=== PATIENT | female | born 1960 | race Caucasian/White ===

== ENCOUNTER 2020-06-18 04:41 | Inpatient (IN) | payer OTHER ==
[2020-06-18] MEDS ORDERED: IPRATROPIUM-ALBUTEROL 3 ML NEB INHALATION STA (04:53)
[2020-06-18 05:12] LABS: Basophils # (A) 0.1 k/uL (0-0.2); Basophils % (A) 1 %; Eosinophils # (A) 0.5 k/uL (0-0.7); Eosinophils % (A) 3 %; HCT 49.9 % (34.0-46.0); HGB 16.1 gm/dL (11.4-16.0); Lymphocytes # (A) 3.6 k/uL (1.0-4.8); Lymphocytes % (A) 21 %; MCH 29.6 pg (25.0-35.0); MCHC 32.3 g/dL (31.0-37.0); MCV 91.7 fL (80.0-100.0); Mean Platelet Volume 7.6; Monocytes # (A) 0.9 k/uL (0-1.0); Monocytes % (A) 6 %; Neutrophils # (A) 11.6 k/uL (1.3-7.7); Neutrophils % (A) 68 %; Platelet Count 304 k/uL (150-450); RBC 5.44 m/uL (3.80-5.40); RDW 13.1 % (11.5-15.5)
--- NOTE | 2020-06-18 05:17 | ED ---
SOB HPI - General Chief Complaint: Shortness of Breath Stated Complaint: ALEXANDER Time Seen by Provider: 06/18/20 04:48 Source: patient, family Mode of arrival: wheelchair Limitations: no limitations - History of Present Illness Initial Comments: This patient is 59-year-old woman presenting to be evaluated for shortness of breath. Patient states this been going on for a bit over 2 weeks. 2 weeks ago she did see Dr. Mclaughlin in the clinic and he started her on albuterol which initially was helping but she states she doesn't seem to be getting much relief from using this anymore. The breathing has been getting progressively worse. She has associated cough, usually nonproductive but occasionally with clear sputum. Patient denies chest pain. No leg pain or swelling. No change in urination or bowel movements. MD Complaint: shortness of breath, cough Onset/Timin -: week(s) Severity scale (1-10): 0 Consistency: constant Improves With: nothing Worsens With: nothing Associated Symptoms: denies other symptoms, cough Treatments Prior to Arrival: bronchodilator - Related Data Home Oxygen Therapy: No Home Medications Medication Instructions Recorded Confirmed Albuterol Inhaler [Ventolin Hfa 2 puff INHALATION RT-QID PRN 06/18/20 06/18/20 Inhaler] Fluticasone Nasal [place] [Flonase 1 spray EA NOSTRIL DAILY 06/18/20 06/18/20 Nasal [place]] Ipratropium-Albuterol Nebulize 3 ml INHALATION RT-QID PRN 06/18/20 06/18/20 [Duoneb 0.5 mg-3 mg/3 ml Soln] [place]-3 Fatty Acids/Fish Oil [Fish 1 cap PO DAILY 06/18/20 06/18/20 Oil 1,000 mg Softgel] Allergies Allergy/AdvReac Type Severity Reaction Status Date / Time Penicillins Allergy Unknown Verified 06/18/20 07:09 Review of Systems ROS Statement: Those systems with pertinent positive or pertinent negative responses have been documented in the HPI. ROS Other: All systems not noted in ROS Statement are negative. Constitutional: Denies: fever, chills Respiratory: Reports: cough, dyspnea, wheezes. Denies: hemoptysis Cardiovascular: Denies: chest pain, palpitations, orthopnea, edema, syncope Gastrointestinal: Denies: abdominal pain, nausea, vomiting Genitourinary: Denies: dysuria, hematuria Musculoskeletal: Denies: back pain Skin: Denies: rash Neurological: Denies: headache, weakness Past Medical History Past Medical History: COPD Additional Past Medical History / Comment(s): PSORIASIS History of Any Multi-Drug Resistant Organisms: None Reported Past Surgical History: Section Past Psychological History: No Psychological Hx Reported Smoking Status: Former smoker Past Alcohol Use History: Occasional Past Drug Use History: Marijuana - Past Family History Father Family Medical History: COPD Additional Family Medical History / Comment(s): Her father at age 64 of emphysema. Her brother at age 64 of emphysema. He was positive for alpha- 1 antitrypsin deficiency, ZZ. Brother(s) Family Medical History: COPD General Exam Limitations: no limitations General appearance: alert, in distress Head exam: Present: atraumatic, normocephalic Eye exam: Present: normal appearance. Absent: scleral icterus, conjunctival injection Neck exam: Present: normal inspection, full ROM Respiratory exam: Present: respiratory distress, wheezes, accessory muscle use, decreased breath sounds, prolonged expiratory. Absent: rales, rhonchi, stridor, chest wall tenderness Cardiovascular Exam: Present: regular rate, normal rhythm, normal heart sounds. Absent: systolic murmur, diastolic murmur, rubs, gallop GI/Abdominal exam: Present: soft. Absent: distended, tenderness, guarding, rebound, rigid, mass Extremities exam: Present: normal inspection, normal capillary refill. Absent: pedal edema, calf tenderness Back exam: Present: normal inspection. Absent: CVA tenderness (R), CVA tenderness (L) Neurological exam: Present: alert Skin exam: Present: warm, dry, intact, normal color. Absent: rash Course Vital Signs 06/18/20 06/18/20 06/18/20 04:50 04:58 05:08 Temperature 97.7 F Pulse Rate 115 H 103 H 108 H Respiratory 45 H Rate Blood Pressure 164/82 O2 Sat by Pulse 70 L Oximetry 06/18/20 06/18/20 06/18/20 07:22 07:24 07:35 Temperature 97.8 F Pulse Rate 106 H 101 H Respiratory 24 Rate Blood Pressure 136/99 O2 Sat by Pulse 99 Oximetry 06/18/20 07:46 Temperature Pulse Rate 105 H Respiratory Rate Blood Pressure O2 Sat by Pulse Oximetry Medical Decision Making - Lab Data Result diagrams: 06/18/20 04:58 06/18/20 04:58 Lab Results 06/18/20 06/18/20 06/18/20 Range/Units 04:58 04:58 04:58 WBC 17.0 H (3.8-10.6) k/uL RBC 5.44 H (3.80-5.40) m/uL Hgb 16.1 H (11.4-16.0) gm/dL Hct 49.9 H (34.0-46.0) % MCV 91.7 (80.0-100.0) fL MCH 29.6 (25.0-35.0) pg MCHC 32.3 (31.0-37.0) g/dL RDW 13.1 (11.5-15.5) % Plt Count 304 (150-450) k/uL Neutrophils % 68 % Lymphocytes % 21 % Monocytes % 6 % Eosinophils % 3 % Basophils % 1 % Neutrophils # 11.6 H (1.3-7.7) k/uL Lymphocytes # 3.6 (1.0-4.8) k/uL Monocytes # 0.9 (0-1.0) k/uL Eosinophils # 0.5 (0-0.7) k/uL Basophils # 0.1 (0-0.2) k/uL PT 10.0 (9.0-12.0) sec INR 1.0 (<1.2) APTT 27.3 (22.0-30.0) sec Sodium 137 (137-145) mmol/L Potassium 4.3 (3.5-5.1) mmol/L Chloride 101 (98-107) mmol/L Carbon Dioxide 27 (22-30) mmol/L Anion Gap 9 mmol/L BUN 13 (7-17) mg/dL Creatinine 0.57 (0.52-1.04) mg/dL Est GFR (CKD-EPI)AfAm >90 (>60 ml/min/1.73 sqM) Est GFR (CKD-EPI)NonAf >90 (>60 ml/min/1.73 sqM) Glucose 141 H (74-99) mg/dL Plasma Lactic Acid Sergey (0.7-2.0) mmol/L Calcium 9.3 (8.4-10.2) mg/dL Magnesium 2.1 (1.6-2.3) mg/dL Total Bilirubin 0.6 (0.2-1.3) mg/dL AST 23 (14-36) U/L ALT 16 (4-34) U/L Alkaline Phosphatase 90 (38-126) U/L Troponin I (0.000-0.034) ng/mL NT-Pro-B Natriuret Pep pg/mL Total Protein 8.4 H (6.3-8.2) g/dL Albumin 4.8 (3.5-5.0) g/dL Procalcitonin (0.02-0.09) ng/mL 06/18/20 06/18/20 06/18/20 Range/Units 04:58 04:58 04:58 WBC (3.8-10.6) k/uL RBC (3.80-5.40) m/uL Hgb (11.4-16.0) gm/dL Hct (34.0-46.0) % MCV (80.0-100.0) fL MCH (25.0-35.0) pg MCHC (31.0-37.0) g/dL RDW (11.5-15.5) % Plt Count (150-450) k/uL Neutrophils % % Lymphocytes % % Monocytes % % Eosinophils % % Basophils % % Neutrophils # (1.3-7.7) k/uL Lymphocytes # (1.0-4.8) k/uL Monocytes # (0-1.0) k/uL Eosinophils # (0-0.7) k/uL Basophils # (0-0.2) k/uL PT (9.0-12.0) sec INR (<1.2) APTT (22.0-30.0) sec Sodium (137-145) mmol/L Potassium (3.5-5.1) mmol/L Chloride (98-107) mmol/L Carbon Dioxide (22-30) mmol/L Anion Gap mmol/L BUN (7-17) mg/dL Creatinine (0.52-1.04) mg/dL Est GFR (CKD-EPI)AfAm (>60 ml/min/1.73 sqM) Est GFR (CKD-EPI)NonAf (>60 ml/min/1.73 sqM) Glucose (74-99) mg/dL Plasma Lactic Acid Sergey 1.3 (0.7-2.0) mmol/L Calcium (8.4-10.2) mg/dL Magnesium (1.6-2.3) mg/dL Total Bilirubin (0.2-1.3) mg/dL AST (14-36) U/L ALT (4-34) U/L Alkaline Phosphatase (38-126) U/L Troponin I <0.012 (0.000-0.034) ng/mL NT-Pro-B Natriuret Pep 67 pg/mL Total Protein (6.3-8.2) g/dL Albumin (3.5-5.0) g/dL Procalcitonin (0.02-0.09) ng/mL 06/18/20 Range/Units 04:58 WBC (3.8-10.6) k/uL RBC (3.80-5.40) m/uL Hgb (11.4-16.0) gm/dL Hct (34.0-46.0) % MCV (80.0-100.0) fL MCH (25.0-35.0) pg MCHC (31.0-37.0) g/dL RDW (11.5-15.5) % Plt Count (150-450) k/uL Neutrophils % % Lymphocytes % % Monocytes % % Eosinophils % % Basophils % % Neutrophils # (1.3-7.7) k/uL Lymphocytes # (1.0-4.8) k/uL Monocytes # (0-1.0) k/uL Eosinophils # (0-0.7) k/uL Basophils # (0-0.2) k/uL PT (9.0-12.0) sec INR (<1.2) APTT (22.0-30.0) sec Sodium (137-145) mmol/L Potassium (3.5-5.1) mmol/L Chloride (98-107) mmol/L Carbon Dioxide (22-30) mmol/L Anion Gap mmol/L BUN (7-17) mg/dL Creatinine (0.52-1.04) mg/dL Est GFR (CKD-EPI)AfAm (>60 ml/min/1.73 sqM) Est GFR (CKD-EPI)NonAf (>60 ml/min/1.73 sqM) Glucose (74-99) mg/dL Plasma Lactic Acid Sergey (0.7-2.0) mmol/L Calcium (8.4-10.2) mg/dL Magnesium (1.6-2.3) mg/dL Total Bilirubin (0.2-1.3) mg/dL AST (14-36) U/L ALT (4-34) U/L Alkaline Phosphatase (38-126) U/L Troponin I (0.000-0.034) ng/mL NT-Pro-B Natriuret Pep pg/mL Total Protein (6.3-8.2) g/dL Albumin (3.5-5.0) g/dL Procalcitonin 0.04 (0.02-0.09) ng/mL - EKG Data -: EKG Interpreted by Me EKG shows normal: sinus rhythm, axis (Normal), intervals (Normal), QRS complexes (Normal) Rate: tachycardia (Rate 13 bpm) Interpretation: nonspecific ST-T wave changes Critical Care Time Critical Care Time: Yes (35 minutes) Disposition Clinical Impression: COPD (chronic obstructive pulmonary disease) Disposition: ADMITTED IP TO THIS HOSP Condition: Serious Is patient prescribed a controlled substance at d/c from ED?: No
[2020-06-18 05:20] LABS: Partial Thromboplastin Time 27.3 sec (22.0-30.0)
[2020-06-18 05:25] LABS: ALT 16 U/L (4-34); AST 23 U/L (14-36); African American GFR (CKD) >90 (>60 ml/min/1.73 sqM); Albumin 4.8 g/dL (3.5-5.0); Alkaline Phosphatase 90 U/L (38-126); Anion Gap 9 mmol/L; Blood Urea Nitrogen 13 mg/dL (7-17); Calcium 9.3 mg/dL (8.4-10.2); Carbon Dioxide 27 mmol/L (22-30); Chloride 101 mmol/L (98-107); Glucose 141 mg/dL (74-99); Magnesium 2.1 mg/dL (1.6-2.3); Non-African American GFR(CKD) >90 (>60 ml/min/1.73 sqM); Potassium 4.3 mmol/L (3.5-5.1); Sodium 137 mmol/L (137-145); Total Bilirubin 0.6 mg/dL (0.2-1.3); Total Protein 8.4 g/dL (6.3-8.2)
[2020-06-18] MEDS ORDERED: predniSONE 20 MG TAB PO STA (06:11)
[2020-06-18] MEDS ORDERED: ALBUTEROL NEBULIZED 2.5 MG/3 ML INHALATION STA ×2 (06:11→06:19)
--- NOTE | 2020-06-18 06:13 | XR ---
EXAMINATION TYPE: XR chest 1V portable DATE OF EXAM: 06/18/2020 COMPARISON: NONE HISTORY: Short of breath TECHNIQUE: FINDINGS: There is no heart failure nor confluent pneumonic infiltrate. Costophrenic angles are clear . There are chest leads. Heart size is normal. IMPRESSION: No active cardiopulmonary disease.
[2020-06-18] MEDS ORDERED: methylPREDNISolone SOD SUCCI 125 MG/2 ML VIAL IV STA (06:15)
[2020-06-18] MEDS ORDERED: ALBUTEROL NEBULIZED 1.25 MG/3 ML INHALATION PRN (06:24)
[2020-06-18] MEDS: IPRATROPIUM-ALBUTEROL 3 ML NEB INHALATION SCH ×4 (08:50→19:05)
[2020-06-18] MEDS: NICOTINE 14MG/24HR PATCH TRANSDERM SCH (08:50)
[2020-06-18] MEDS ORDERED: AZITHROMYCIN 500 MG TAB PO SCH (09:00)
--- NOTE | 2020-06-18 09:10 | P.HPIM ---
History of Present Illness H&P Date: 06/18/20 This is a 59-year-old patient of Dr. Lesia Tellez with a past medical history significant for COPD and psoriasis patient is a former smoker who also occasionally uses marijuana. Patient was seen about 2 weeks ago in the clinic complaining of shortness of breath at that time she was given albuterol and found relief. Patient states that during the last 2 weeks the albuterol has stopped working and she continues to have significant shortness of breath. She presented to the emergency room complaining of shortness of breath. Patient has a positive nonproductive cough. Denies any fever or chills. Patient has family history of alpha-1 antitrypsin deficiency with a brother who was zz positive and 2 sisters who are also zz positive. Her brother at the age of 64. Her father at the age of 64 for emphysema, as well. Review of systems: Constitutional: No fever, no chills, no night sweats. No weight change. Report weakness and fatigue no lethargy. No daytime sleepiness. EENT: No headache. No blurred vision or double vision, no loss of vision. No loss of Hearing, no ringing in the ears, no dizziness. No nasal drainage or congestion. No epistaxis. No sore throat. Lungs: Reports shortness of breath, and cough, and sputum production. No wheezing. Cardiovascular: No chest pain, no lower extremity edema. No palpitations. No paroxysmal nocturnal dyspnea. No orthopnea. No lightheadedness or dizziness. No syncopal episodes. Abdominal: no abdominal discomfort. No nausea, vomiting. no diarrhea. No constipation. No bloody or tarry stools. no loss of appetite. Genitourinary: No dysuria, increased frequency, urgency. No urinary retention. Musculoskeletal: No myalgias. No muscle weakness, no gait dysfunction, no frequent falls. No back pain. No neck pain. Integumentary: No wounds, no lesions. No rash or pruritus. No unusual bruising. No change in hair or nails. Neurologic: No aphasia. No facial droop. No change in mentation. No head injury. No headache. No paralysis. No paresthesia. Psychiatric: No depression. No anxiety. No mood swings. Endocrine: No abnormal blood sugars. No weight change. No excessive sweating or thirst. Physical exam: General Appearance: Alert, cooperative, no distress, appears stated age. Neck HEENT: Positive oral thrush noted Supple, no lymphadenopathy, no thyroid enlargement, no carotid bruits. Lungs: Diminished with expiratory wheezes. Chest Wall: Chest wall normal expansion with deep inspiration no tenderness and no deformity was found on exam, no costochondral pain or discomfort. Heart: Regular rate and rhythm, S1, S2 normal, no murmur, rub or gallop. Back: Symmetric, no curvature, ROM normal, no CVA tenderness. Abdomen: Soft, non-tender, no rebound or rigidity, no hepatosplenomegaly. Extremities: Extremities normal, atraumatic, no cyanosis or edema. Pulses: 2+ and symmetric. Skin: Areas of psoriasis Skin color, texture, tugor normal, no rashes or lesions. Neurologic: Alert oriented x3 cranial nerves II through XII intact, no motor deficit, no abnormal balance or gait Assessment/plan: 1. Acute hypoxic respiratory failure secondary to COPD. Consult pulmonology. Continue with DuoNeb, Symbicort, Ventolin, doxycycline 100 mg by mouth twice a day, Solu-Medrol 60 mg IV every 6. Pro-calcitonin level, sputum culture 2. Chronic and ongoing nicotine dependence. Nicotine patch 3. Family history of alpha 1 antitrypsin. Of to 1 and trypsin level and phenotype, IgE, 4. Oral tyra's. Diflucan 100 mg IV push daily. 5. DVT prophylaxis. Heparin subcu 6. GI prophylaxis Protonix 40 mg IV daily CODE STATUS: Full code Discharge plan: Minimal 2 nights day, home with self-care Impression and plan of care have been directed as dictated by the signing physician. Soo Sierra nurse practitioner acting as scribe for signing physician. Past Medical History Past Medical History: COPD Additional Past Medical History / Comment(s): PSORIASIS History of Any Multi-Drug Resistant Organisms: None Reported Past Surgical History: Section Past Psychological History: No Psychological Hx Reported Smoking Status: Former smoker Past Alcohol Use History: Occasional Past Drug Use History: Marijuana - Past Family History Father Family Medical History: COPD Additional Family Medical History / Comment(s): Her father at age 64 of emphysema. Her brother at age 64 of emphysema. He was positive for alpha- 1 antitrypsin deficiency, BEENA. Brother(s) Family Medical History: COPD Medications and Allergies Home Medications Medication Instructions Recorded Confirmed Type Albuterol Inhaler [Ventolin Hfa 2 puff INHALATION RT-QID PRN 06/18/20 06/18/20 History Inhaler] Fluticasone Nasal [place] [Flonase 1 spray EA NOSTRIL DAILY 06/18/20 06/18/20 History Nasal [place]] Ipratropium-Albuterol Nebulize 3 ml INHALATION RT-QID PRN 06/18/20 06/18/20 History [Duoneb 0.5 mg-3 mg/3 ml Soln] [place]-3 Fatty Acids/Fish Oil [Fish 1 cap PO DAILY 06/18/20 06/18/20 History Oil 1,000 mg Softgel] Allergies Allergy/AdvReac Type Severity Reaction Status Date / Time Penicillins Allergy Unknown Verified 06/18/20 07:09 Physical Exam Vitals: Vital Signs Temp Pulse Pulse Resp BP BP Pulse Ox 06/18/20 08:06 97.7 F 104 H 18 142/80 96 06/18/20 07:46 105 H 06/18/20 07:35 101 H 06/18/20 07:24 97.8 F 06/18/20 07:22 106 H 24 136/99 99 06/18/20 05:08 108 H 06/18/20 04:58 103 H 06/18/20 04:50 97.7 F 115 H 45 H 164/82 70 L Intake and Output 06/17/20 06/18/20 06/18/20 22:59 06:59 14:59 Other: Weight 72.575 kg Results CBC & Chem 7: 06/18/20 04:58 06/18/20 04:58 Labs: Abnormal Lab Results - Last 24 Hours (Table) 06/18/20 06/18/20 Range/Units 04:58 04:58 WBC 17.0 H (3.8-10.6) k/uL RBC 5.44 H (3.80-5.40) m/uL Hgb 16.1 H (11.4-16.0) gm/dL Hct 49.9 H (34.0-46.0) % Neutrophils # 11.6 H (1.3-7.7) k/uL Glucose 141 H (74-99) mg/dL Total Protein 8.4 H (6.3-8.2) g/dL
[2020-06-18] MEDS ORDERED: AZITHROMYCIN 500 MG in SODIUM CHLORIDE 0.9% 250 ML IVPB SCH (10:00)
[2020-06-18] MEDS ORDERED: FLUCONAZOLE IN NACL,ISO-OSM 100 MG in SALINE 1 50ML.BAG IVPB SCH (10:15)
[2020-06-18] MEDS ORDERED: LEVOFLOXACIN 500MG-D5W PMX 500 MG in DEXTROSE/WATER 1 100ML.BAG IVPB SCH (10:15)
--- NOTE | 2020-06-18 11:26 | P.CNPUL ---
History of Present Illness Consult date: 06/18/20 Requesting physician: Carolyne Edwards Reason for consult: COPD Chief complaint: Shortness of breath History of present illness: This is a very pleasant 59-year-old female patient who follows with Dr. Cornell as her primary care provider. She has a history of psoriasis, rhinitis, ALLERGIES, chronic and ongoing tobacco dependence. She also has a family history of alpha 1 antitrypsin deficiency with a brother who was ZZ positive. He at age 64. Her father of age 64 emphysema as well. His been having increasing shortness of breath over the past several weeks. She was to see Dr. Valencia as a new patient in our office next week. The last 2 days however should her shortness of breath has gotten worse. She was using her grandsons nebulizer which did seem to help but she presented early this morning with shortness of breath, chest tightness and wheezing. She has occasional pr oductive cough of clear sputum. Her O2 saturation on arrival on room air was 70%. She was initially placed on high flow nasal cannula. She is seen today in consultation on the regular medical floor. She is awake and alert in no acute distress. Currently on 4 L/m per nasal cannula and maintaining O2 saturation in the 90s. Chest x-ray reveals no acute pulmonary process. White count 17.0. Hemoglobin 16.1. Sodium 137. Potassium 4.3. Creatinine 0.57. Troponin negative. ProBNP 67. Review of Systems REVIEW OF SYSTEMS: CONSTITUTIONAL: Denies any recent significant weight loss or weight gain. EYES: Denies change in vision. EARS, NOSE, MOUTH, THROAT: Denies headaches, denies sore throat. CARDIOVASCULAR: Denies chest pain, palpitations or syncopal episodes. RESPIRATORY: Positive for shortness of breath, cough, congestion no hemoptysis. GASTROINTESTINAL: Denies change in appetite, denies abdominal pain GENITOURINARY: Denies hematuria, denies infections. MUSKULOSKELETAL: Denies pain, denies swelling. INTEGUMENTARY: Positive psoriasis NEUROLOGICAL: Denies recent memory loss, no recent seizure activity. PSYCHIATRIC: Denies anxiety, denies depression. HEMATOLOGIC/LYMPHATIC: Denies anemia, denies enlarged lymph nodes. Past Medical History Past Medical History: COPD Additional Past Medical History / Comment(s): PSORIASIS History of Any Multi-Drug Resistant Organisms: None Reported Past Surgical History: Section Past Psychological History: No Psychological Hx Reported Smoking Status: Current every day smoker Past Alcohol Use History: Occasional Past Drug Use History: Marijuana - Past Family History Father Family Medical History: COPD Additional Family Medical History / Comment(s): Her father at age 64 of emphysema. Her brother at age 64 of emphysema. He was positive for alpha- 1 antitrypsin deficiency, ZZ. Brother(s) Family Medical History: COPD Medications and Allergies Home Medications Medication Instructions Recorded Confirmed Type Albuterol Inhaler [Ventolin Hfa 2 puff INHALATION RT-QID PRN 06/18/20 06/18/20 History Inhaler] Fluticasone Nasal [place] [Flonase 1 spray EA NOSTRIL DAILY 06/18/20 06/18/20 History Nasal [place]] Ipratropium-Albuterol Nebulize 3 ml INHALATION RT-QID PRN 06/18/20 06/18/20 History [Duoneb 0.5 mg-3 mg/3 ml Soln] [place]-3 Fatty Acids/Fish Oil [Fish 1 cap PO DAILY 06/18/20 06/18/20 History Oil 1,000 mg Softgel] Allergies Allergy/AdvReac Type Severity Reaction Status Date / Time Penicillins Allergy Unknown Verified 06/18/20 07:09 Physical Exam Vitals: Vital Signs Temp Pulse Pulse Resp BP BP Pulse Ox 06/18/20 08:06 97.7 F 104 H 18 142/80 96 06/18/20 07:46 105 H 06/18/20 07:35 101 H 06/18/20 07:24 97.8 F 06/18/20 07:22 106 H 24 136/99 99 06/18/20 05:08 108 H 06/18/20 04:58 103 H 06/18/20 04:50 97.7 F 115 H 45 H 164/82 70 L Intake and Output 06/17/20 06/18/20 06/18/20 22:59 06:59 14:59 Other: Weight 72.575 kg 72.575 kg GENERAL EXAM: Alert, pleasant 59-year-old female patient, on 4 L nasal cannula, comfortable in no apparent distress. HEAD: Normocephalic. EYES: Normal reaction of pupils, equal size. NOSE: Clear with pink turbinates. THROAT: No erythema or exudates. NECK: No masses, no JVD. CHEST: No chest wall deformity. LUNGS: Equal air entry with bilateral end expiratory wheeze, diminished. CVS: S1 and S2 normal with no audible murmur, regular rhythm. ABDOMEN: No hepatosplenomegaly, normal bowel sounds, no guarding or rigidity. SPINE: No scoliosis or deformity SKIN: Areas of psoriasis CENTRAL NERVOUS SYSTEM: No focal deficits, tone is normal in all 4 extremities. EXTREMITIES: There is no peripheral edema. No clubbing, no cyanosis. Peripheral pulses are intact. Results - Laboratory Findings CBC and BMP: 06/18/20 04:58 06/18/20 04:58 PT/INR, D-dimer PT 10.0 sec (9.0-12.0) 06/18/20 04:58 INR 1.0 (<1.2) 06/18/20 04:58 Abnormal lab findings: Abnormal Labs 06/18/20 06/18/20 04:58 04:58 WBC 17.0 H RBC 5.44 H Hgb 16.1 H Hct 49.9 H Neutrophils # 11.6 H Glucose 141 H Total Protein 8.4 H - Diagnostic Findings Chest x-ray: image reviewed (No acute pulmonary process) Assessment and Plan Assessment: Acute hypoxic respiratory failure secondary to an acute exacerbation of chronic obstructive pulmonary disease Chronic and ongoing tobacco dependence Psoriasis Seasonal ALLERGIES/rhinitis Family history of alpha-1 antitrypsin deficiency, ZZ Plan: The patient was seen and evaluated by Dr. Mcmillan Chest x-ray and labs reviewed Continue DuoNeb inhalations Add Symbicort Continue IV Solu-Medrol Add doxycycline, pro-calcitonin pending, doubt pneumonia Educated regarding the importance of complete smoking cessation NicoDerm patch in place Titrate down the FiO2 as tolerated We'll continue to follow and make further recommendations based on her clinical status She'll keep her appointment in our office for full pulmonary function testing and alpha-1 testing to evaluate the severity of her COPD I, the cosigning physician, performed a history & physical examination of the patient. Lungs sounds with bilateral end expiratory wheeze, diminished. Maintaining good O2 saturations in the 90s on 4 L/m per nasal cannula. I discussed the assessment and plan of care with my nurse practitioner, Emilia Lauren. I attest to the above note as dictated by her. Time with Patient: Greater than 30
[2020-06-18] MEDS: PANTOPRAZOLE 40 MG/10 ML VIAL IVP SCH (12:10)
[2020-06-18] MEDS: methylPREDNISolone SOD SUCCI 125 MG/2 ML VIAL IV SCH ×2 (12:11→17:31)
[2020-06-18] MEDS: DOXYCYCLINE 100 MG CAP PO SCH ×2 (12:11→20:48)
[2020-06-18] MEDS: SYMBICORT 160-4.5 MCG INHALER INHALATION SCH (19:05)
[2020-06-18] MEDS ORDERED: BUDESONIDE 1 MG/2 ML NEBU INHALATION SCH (20:00)
[2020-06-18] MEDS: KETOROLAC 15 MG/ML 1 ML VIAL IVP PRN (20:47)
[2020-06-18] MEDS: HEPARIN SODIUM,PORCINE 5,000 UNIT/ML 1 ML VIAL SQ SCH ×2 (20:48→20:54)
[2020-06-18] MEDS: MELATONIN 3 MG TABLET PO SCH (20:48)
[2020-06-19] MEDS: methylPREDNISolone SOD SUCCI 125 MG/2 ML VIAL IV SCH ×2 (00:04→05:51)
[2020-06-19] MEDS: IPRATROPIUM-ALBUTEROL 3 ML NEB INHALATION SCH (06:24)
[2020-06-19] MEDS: PANTOPRAZOLE 40 MG/10 ML VIAL IVP SCH (07:42)
[2020-06-19] MEDS: NICOTINE 14MG/24HR PATCH TRANSDERM SCH (07:42)
[2020-06-19] MEDS: HEPARIN SODIUM,PORCINE 5,000 UNIT/ML 1 ML VIAL SQ SCH ×2 (07:42→20:51)
[2020-06-19] MEDS: DOXYCYCLINE 100 MG CAP PO SCH ×2 (07:42→21:02)
[2020-06-19 07:58] LABS: Basophils # (A) 0.1 k/uL (0-0.2); Basophils % (A) 0 %; Eosinophils % (A) 0 %; HCT 46.8 % (34.0-46.0); HGB 15.2 gm/dL (11.4-16.0); Lymphocytes # (A) 1.7 k/uL (1.0-4.8); Lymphocytes % (A) 6 %; MCH 29.5 pg (25.0-35.0); MCHC 32.4 g/dL (31.0-37.0); MCV 91.3 fL (80.0-100.0); Mean Platelet Volume 7.9; Monocytes # (A) 0.8 k/uL (0-1.0); Monocytes % (A) 3 %; Neutrophils # (A) 24.6 k/uL (1.3-7.7); Neutrophils % (A) 90 %; Platelet Count 312 k/uL (150-450); RBC 5.13 m/uL (3.80-5.40); RDW 13.3 % (11.5-15.5); WBC 27.3 k/uL (3.8-10.6)
[2020-06-19] MEDS: SYMBICORT 160-4.5 MCG INHALER INHALATION SCH ×2 (07:58→20:12)
[2020-06-19 08:02] LABS: ALT 16 U/L (4-34); AST 21 U/L (14-36); African American GFR (CKD) >90 (>60 ml/min/1.73 sqM); Albumin 4.6 g/dL (3.5-5.0); Alkaline Phosphatase 82 U/L (38-126); Anion Gap 9 mmol/L; Blood Urea Nitrogen 25 mg/dL (7-17); Calcium 9.6 mg/dL (8.4-10.2); Carbon Dioxide 27 mmol/L (22-30); Chloride 101 mmol/L (98-107); Glucose 139 mg/dL (74-99); Non-African American GFR(CKD) 81 (>60 ml/min/1.73 sqM); Potassium 4.3 mmol/L (3.5-5.1); Sodium 137 mmol/L (137-145); Total Bilirubin 0.6 mg/dL (0.2-1.3)
--- NOTE | 2020-06-19 08:56 | P.PN ---
Subjective Progress Note Date: 06/19/20 This is a 59-year-old patient of Dr. Lesia Tellez with a past medical history significant for COPD and psoriasis patient is a former smoker who also occasionally uses marijuana. Patient was seen about 2 weeks ago in the clinic complaining of shortness of breath at that time she was given albuterol and found relief. Patient states that during the last 2 weeks the albuterol has stopped working and she continues to have significant shortness of breath. She presented to the emergency room complaining of shortness of breath. Patient has a positive nonproductive cough. Denies any fever or chills. Patient has family history of alpha-1 antitrypsin deficiency with a brother who was zz positive and 2 sisters who are also zz positive. Her brother at the age of 64. Her father at the age of 64 for emphysema, as well. 06/19: She complained of a headache last night receiving Toradol with relief. Patient states that she feels the headache may be caused from the coughing and lack of caffeine. Patient states that she is feeling much better is able to breathe easier. Continues to have nebulizer treatments which will be changed to as needed. Patient no oral tyra's noted. Review of systems: Constitutional: No fever, no chills, no night sweats. No weight change. Report weakness and fatigue no lethargy. No daytime sleepiness. EENT: Reports headache resolved. No blurred vision or double vision, no loss of vision. No loss of Hearing, no ringing in the ears, no dizziness. No nasal drainage or congestion. No epistaxis. No sore throat. Lungs: Reports shortness of breath improved, and cough, and sputum production. No wheezing. Cardiovascular: No chest pain, no lower extremity edema. No palpitations. No paroxysmal nocturnal dyspnea. No orthopnea. No lightheadedness or dizziness. No syncopal episodes. Abdominal: no abdominal discomfort. No nausea, vomiting. no diarrhea. No constipation. No bloody or tarry stools. no loss of appetite. Genitourinary: No dysuria, increased frequency, urgency. No urinary retention. Musculoskeletal: No myalgias. No muscle weakness, no gait dysfunction, no frequent falls. No back pain. No neck pain. Integumentary: No wounds, no lesions. No rash or pruritus. No unusual bruising. No change in hair or nails. Neurologic: No aphasia. No facial droop. No change in mentation. No head injury. No headache. No paralysis. No paresthesia. Psychiatric: No depression. No anxiety. No mood swings. Endocrine: No abnormal blood sugars. No weight change. No excessive sweating or thirst. Physical exam: General Appearance: Alert, cooperative, no distress, appears stated age. Neck HEENT:Supple, no lymphadenopathy, no thyroid enlargement, no carotid bruits. Lungs: Diminished with expiratory wheezes. Chest Wall: Chest wall normal expansion with deep inspiration no tenderness and no deformity was found on exam, no costochondral pain or discomfort. Heart: Regular rate and rhythm, S1, S2 normal, no murmur, rub or gallop. Back: Symmetric, no curvature, ROM normal, no CVA tenderness. Abdomen: Soft, non-tender, no rebound or rigidity, no hepatosplenomegaly. Extremities: Extremities normal, atraumatic, no cyanosis or edema. Pulses: 2+ and symmetric. Skin: Areas of psoriasis Skin color, texture, tugor normal, no rashes or lesi ons. Neurologic: Alert oriented x3 cranial nerves II through XII intact, no motor deficit, no abnormal balance or gait Assessment/plan: 1. Acute hypoxic respiratory failure secondary to COPD. Consult pulmonology. Continue with DuoNeb, Symbicort, Ventolin, as needed doxycycline 100 mg by mouth twice a day, Solu-Medrol 40 mg IV every 6. Pro-calcitonin level 0.4, sputum culture pending 2. Chronic and ongoing nicotine dependence. Nicotine patch 3. Family history of alpha 1 antitrypsin. alpha 1 and trypsin level and phenotype, IgE, 4. Oral tyra's. Resolved 5. DVT prophylaxis. Heparin subcu 6. GI prophylaxis Protonix 40 mg IV daily CODE STATUS: Full code Discharge plan: Minimal 2 nights day, home with self-care Impression and plan of care have been directed as dictated by the signing physician. Soo Sierra nurse practitioner acting as scribe for signing physician. Objective - Vital Signs Vital signs: Vital Signs Temp 98 F 06/19/20 07:10 Pulse 95 06/19/20 07:10 Resp 18 06/19/20 07:10 BP 112/67 06/19/20 07:10 Pulse Ox 95 06/19/20 07:10 Intake & Output 06/18/20 06/19/20 06/19/20 18:59 06:59 18:59 Weight 72.575 kg Other: Voiding Method Bedside Commode Bedside Commode # Voids 1 3 - Labs CBC & Chem 7: 06/19/20 07:20 06/19/20 07:20 Labs: Abnormal Lab Results - Last 24 Hours (Table) 06/19/20 06/19/20 Range/Units 07:20 07:20 WBC 27.3 H (3.8-10.6) k/uL Hct 46.8 H (34.0-46.0) % Neutrophils # 24.6 H (1.3-7.7) k/uL BUN 25 H (7-17) mg/dL Glucose 139 H (74-99) mg/dL
[2020-06-19] MEDS: IPRATROPIUM-ALBUTEROL 3 ML NEB INHALATION PRN ×3 (11:03→20:03)
[2020-06-19] MEDS: predniSONE 20 MG TAB PO SCH (11:49)
[2020-06-19] MEDS ORDERED: methylPREDNISolone SOD SUCCI 40 MG/ML 1 ML VIAL IV SCH (12:00)
--- NOTE | 2020-06-19 12:08 | P.PN ---
Subjective Progress Note Date: 06/19/20 Principal diagnosis: Acute exacerbation of chronic obstructive pulmonary disease This is a very pleasant 59-year-old female patient who follows with Dr. Calin Mclaughlin as her primary care provider. She has a history of psoriasis, rhinitis, ALLERGIES, chronic and ongoing tobacco dependence. She also has a family history of alpha 1 antitrypsin deficiency with a brother who was ZZ positive. He at age 64. Her father of age 64 emphysema as well. His been having increasing shortness of breath over the past several weeks. She was to see Dr. Valencia as a new patient in our office next week. The last 2 days however should her shortness of breath has gotten worse. She was using her grandsons nebulizer which did seem to help but she presented early this morning with shortness of breath, chest tightness and wheezing. She has occasional productive cough of clear sputum. Her O2 saturation on arrival on room air was 70%. She was initially placed on high flow nasal cannula. She is seen today in consultation on the regular medical floor. She is awake and alert in no acute distress. Currently on 4 L/m per nasal cannula and maintaining O2 saturation in the 90s. Chest x-ray reveals no acute pulmonary process. White count 17.0. Hemoglobin 16.1. Sodium 137. Potassium 4.3. Creatinine 0.57. Troponin negative. ProBNP 67. The patient is seen today 06/19/2020 in follow-up in the regular medical floor. She is sitting up at the bedside. Awake and alert in no acute distress. Breathing quite a bit easier today compared to yesterday. Maintaining good O2 saturations in the mid 90s on 4 L/m per nasal cannula. She's been afebrile. Hemodynamically stable. White count 27.3. Hemoglobin 15.2. Sodium 137. Potassium 4.3. Creatinine 0.80. Pro calcitonin 0.04. She is continued on DuoNeb inhalations, Symbicort, IV Solu-Medrol. Antibiotics in the form of doxycycline. NicoDerm patch is in place. Objective - Vital Signs Vital signs: Vital Signs Temp 98 F 06/19/20 07:10 Pulse 96 06/19/20 11:24 Resp 18 06/19/20 08:00 BP 112/67 06/19/20 07:10 Pulse Ox 95 06/19/20 07:10 Intake & Output 06/18/20 06/19/20 06/19/20 18:59 06:59 18:59 Weight 72.575 kg Other: Voiding Method Bedside Commode Bedside Commode Bedside Commode # Voids 1 3 - Exam GENERAL EXAM: Alert, active, very pleasant 59-year-old female patient, 4 L nasal cannula, comfortable in no apparent distress. HEAD: Normocephalic. EYES: Normal reaction of pupils, equal size. NOSE: Clear with pink turbinates. THROAT: No erythema or exudates. NECK: No masses, no JVD. CHEST: No chest wall deformity. LUNGS: Equal air entry with end expiratory wheeze, diminished. No crackles, rhonchi or dullness. CVS: S1 and S2 normal with no audible murmur, regular rhythm. ABDOMEN: No hepatosplenomegaly, normal bowel sounds, no guarding or rigidity. SPINE: No scoliosis or deformity SKIN: No rashes CENTRAL NERVOUS SYSTEM: No focal deficits, tone is normal in all 4 extremities. EXTREMITIES: There is no peripheral edema. No clubbing, no cyanosis. Periph eral pulses are intact. - Labs CBC & Chem 7: 06/19/20 07:20 06/19/20 07:20 Labs: Abnormal Lab Results - Last 24 Hours (Table) 06/19/20 06/19/20 Range/Units 07:20 07:20 WBC 27.3 H (3.8-10.6) k/uL Hct 46.8 H (34.0-46.0) % Neutrophils # 24.6 H (1.3-7.7) k/uL BUN 25 H (7-17) mg/dL Glucose 139 H (74-99) mg/dL Assessment and Plan Assessment: Acute hypoxic respiratory failure secondary to an acute exacerbation of chronic obstructive pulmonary disease Chronic and ongoing tobacco dependence Psoriasis Seasonal ALLERGIES/rhinitis Family history of alpha-1 antitrypsin deficiency, ZZ Plan: The patient was seen and evaluated by Dr. Mcmillan Continue DuoNeb inhalations, Symbicort Discontinue IV Solu-Medrol, initiate prednisone taper Continue doxycycline, pro-calcitonin within normal limits, doubt pneumonia Agian educated regarding the importance of complete smoking cessation NicoDerm patch in place Titrate down the FiO2 as tolerated We'll continue to follow and make further recommendations based on her clinical status Probable discharge in the a.m. I, the cosigning physician, performed a history & physical examination of the patient. Lungs sounds with bilateral end expiratory wheeze, diminished. Maintaining good O2 saturations in the 90s on 4 L/m per nasal cannula. I discussed the assessment and plan of care with my nurse practitioner, Eimlia Lauren. I attest to the above note as dictated by her.
[2020-06-19] MEDS: KETOROLAC 15 MG/ML 1 ML VIAL IVP PRN (21:01)
[2020-06-19] MEDS: MELATONIN 3 MG TABLET PO SCH (21:02)
[2020-06-20] MEDS: predniSONE 20 MG TAB PO SCH (07:55)
[2020-06-20] MEDS: HEPARIN SODIUM,PORCINE 5,000 UNIT/ML 1 ML VIAL SQ SCH ×2 (07:55→20:45)
[2020-06-20] MEDS: DOXYCYCLINE 100 MG CAP PO SCH ×2 (07:55→20:44)
[2020-06-20] MEDS: PANTOPRAZOLE 40 MG/10 ML VIAL IVP SCH (07:55)
[2020-06-20] MEDS: NICOTINE 14MG/24HR PATCH TRANSDERM SCH (07:56)
[2020-06-20] MEDS: IPRATROPIUM-ALBUTEROL 3 ML NEB INHALATION PRN ×4 (08:11→21:15)
[2020-06-20] MEDS: SYMBICORT 160-4.5 MCG INHALER INHALATION SCH ×2 (08:11→21:15)
--- NOTE | 2020-06-20 10:01 | P.PN ---
Subjective Progress Note Date: 06/20/20 Principal diagnosis: Acute exacerbation of chronic obstructive pulmonary disease This is a very pleasant 59-year-old female patient who follows with Dr. Calin Mclaughlin as her primary care provider. She has a history of psoriasis, rhinitis, ALLERGIES, chronic and ongoing tobacco dependence. She also has a family history of alpha 1 antitrypsin deficiency with a brother who was ZZ positive. He at age 64. Her father of age 64 emphysema as well. His been having increasing shortness of breath over the past several weeks. She was to see Dr. Valencia as a new patient in our office next week. The last 2 days however should her shortness of breath has gotten worse. She was using her grandsons nebulizer which did seem to help but she presented early this morning with shortness of breath, chest tightness and wheezing. She has occasional productive cough of clear sputum. Her O2 saturation on arrival on room air was 70%. She was initially placed on high flow nasal cannula. She is seen today in consultation on the regular medical floor. She is awake and alert in no acute distress. Currently on 4 L/m per nasal cannula and maintaining O2 saturation in the 90s. Chest x-ray reveals no acute pulmonary process. White count 17.0. Hemoglobin 16.1. Sodium 137. Potassium 4.3. Creatinine 0.57. Troponin negative. ProBNP 67. The patient is seen today 06/19/2020 in follow-up in the regular medical floor. She is sitting up at the bedside. Awake and alert in no acute distress. Breathing quite a bit easier today compared to yesterday. Maintaining good O2 saturations in the mid 90s on 4 L/m per nasal cannula. She's been afebrile. Hemodynamically stable. White count 27.3. Hemoglobin 15.2. Sodium 137. Potassium 4.3. Creatinine 0.80. Pro calcitonin 0.04. She is continued on DuoNeb inhalations, Symbicort, IV Solu-Medrol. Antibiotics in the form of doxycycline. NicoDerm patch is in place. The patient is seen today 06/20/2020 in follow-up on the regular medical floor. She is awake and alert in no acute distress. Breathing back to her baseline. Maintain O2 saturation in the mid 90s on room air. She's afebrile. Sputum culture pending. She remains on antibiotics in the form of doxycycline. Continued on Symbicort and DuoNeb inhalations. Prednisone taper. Habitrol patch in place. Objective - Vital Signs Vital signs: Vital Signs Temp 97.8 F 06/20/20 07:00 Pulse 94 06/20/20 08:30 Resp 20 06/20/20 07:00 BP 99/62 06/20/20 07:00 Pulse Ox 95 06/20/20 07:00 Intake & Output 06/19/20 06/20/20 06/20/20 18:59 06:59 18:59 Intake Total 200 Balance 200 Intake: Oral 200 Other: Voiding Method Bedside Commode Bedside Commode # Voids 2 2 - Exam GENERAL EXAM: Alert, active, very pleasant 59-year-old female patient, on room air, comfortable in no apparent distress. HEAD: Normocephalic. EYES: Normal reaction of pupils, equal size. NOSE: Clear with pink turbinates. THROAT: No erythema or exudates. NECK: No masses, no JVD. CHEST: No chest wall deformity. LUNGS: Equal air entry with faint end expiratory wheeze, diminished. No crackles, rhonchi or dullness. CVS: S1 and S2 normal with no audible murmur, regular rhythm. ABDOMEN: No hepatosplenomegaly, normal bowel sounds, no guarding or rigidity. SPINE: No scoliosis or deformity SKIN: No rashes CENTRAL NERVOUS SYSTEM: No focal deficits, tone is normal in all 4 extremities. EXTREMITIES: There is no peripheral edema. No clubbing, no cyanosis. Peripheral pulses are intact. - Labs CBC & Chem 7: 06/19/20 07:20 06/19/20 07:20 Labs: Microbiology - Last 24 Hours (Table) 06/19/20 08:10 Gram Stain - Preliminary Sputum Sputum Culture - Preliminary Assessment and Plan Assessment: Acute hypoxic respiratory failure secondary to an acute exacerbation of chronic obstructive pulmonary disease Chronic and ongoing tobacco dependence Psoriasis Seasonal ALLERGIES/rhinitis Family history of alpha-1 antitrypsin deficiency, ZZ Plan: The patient was seen and evaluated by Dr. Mcmillan Cleared for discharge from the pulmonary standpoint Complete a course of antibiotics Continue Symbicort, DuoNeb's, Ventolin HFA, prednisone taper Agian educated regarding the importance of complete smoking cessation NicoDerm patch in place Keep her appointment in [address] Mcmillan PFT will be performed at that time I, the cosigning physician, performed a history & physical examination of the p atient. Lungs sounds with bilateral end expiratory wheeze, diminished. Maintaining good O2 saturations in the 90s on room air. I discussed the assessment and plan of care with my nurse practitioner, Emilia Lauren. I attest to the above note as dictated by her.
[2020-06-20 11:44] LABS: Glucose,Whole Blood 113 mg/dL (75-99)
--- NOTE | 2020-06-20 13:04 | P.PN ---
Subjective Progress Note Date: 06/20/20 This is a 59-year-old patient of Dr. Lesia Tellez with a past medical history significant for COPD and psoriasis patient is a former smoker who also occasionally uses marijuana. Patient was seen about 2 weeks ago in the clinic complaining of shortness of breath at that time she was given albuterol and found relief. Patient states that during the last 2 weeks the albuterol has stopped working and she continues to have significant shortness of breath. She presented to the emergency room complaining of shortness of breath. Patient has a positive nonproductive cough. Denies any fever or chills. Patient has family history of alpha-1 antitrypsin deficiency with a brother who was zz positive and 2 sisters who are also zz positive. Her brother at the age of 64. Her father at the age of 64 for emphysema, as well. 06/19: She complained of a headache last night receiving Toradol with relief. Patient states that she feels the headache may be caused from the coughing and lack of caffeine. Patient states that she is feeling much better is able to breathe easier. Continues to have nebulizer treatments which will be changed to as needed. Patient no oral tyra's noted. 06/20: Patient is sitting up in chair resting comfortably without any acute distress. Patient states that she is doing much better and feeling that she is able to breathe better. Pulmonary has signed off. She is scheduled to see epidemiology intern on 06/21. alpha-1 antitrypsin results are still pending. Patient will be assessed for home O2 oxygen needs. Review of systems: Constitutional: No fever, no chills, no night sweats. No weight change. Report weakness and fatigue no lethargy. No daytime sleepiness. EENT: Reports headache resolved. No blurred vision or double vision, no loss of vision. No loss of Hearing, no ringing in the ears, no dizziness. No nasal drainage or congestion. No epistaxis. No sore throat. Lungs: Reports shortness of breath improved, and cough, and sputum production. No wheezing. Cardiovascular: No chest pain, no lower extremity edema. No palpitations. No paroxysmal nocturnal dyspnea. No orthopnea. No lightheadedness or dizziness. No syncopal episodes. Abdominal: no abdominal discomfort. No nausea, vomiting. no diarrhea. No constipation. No bloody or tarry stools. no loss of appetite. Genitourinary: No dysuria, increased frequency, urgency. No urinary retention. Musculoskeletal: No myalgias. No muscle weakness, no gait dysfunction, no frequent falls. No back pain. No neck pain. Integumentary: No wounds, no lesions. No rash or pruritus. No unusual b ruising. No change in hair or nails. Neurologic: No aphasia. No facial droop. No change in mentation. No head injury. No headache. No paralysis. No paresthesia. Psychiatric: No depression. No anxiety. No mood swings. Endocrine: No abnormal blood sugars. No weight change. No excessive sweating o r thirst. Physical exam: General Appearance: Alert, cooperative, no distress, appears stated age. Neck HEENT:Supple, no lymphadenopathy, no thyroid enlargement, no carotid bruits. Lungs: Diminished with expiratory wheezes. Chest Wall: Chest wall normal expansion with deep inspiration no tenderness and no deformity was found on exam, no costochondral pain or discomfort. Heart: Regular rate and rhythm, S1, S2 normal, no murmur, rub or gallop. Back: Symmetric, no curvature, ROM normal, no CVA tenderness. Abdomen: Soft, non-tender, no rebound or rigidity, no hepatosplenomegaly. Extremities: Extremities normal, atraumatic, no cyanosis or edema. Pulses: 2+ and symmetric. Skin: Areas of psoriasis Skin color, texture, tugor normal, no rashes or lesions. Neurologic: Alert oriented x3 cranial nerves II through XII intact, no motor deficit, no abnormal balance or gait Assessment/plan: 1. Acute hypoxic respiratory failure secondary to COPD. Consult pulmonology appreciated. Continue with DuoNeb, Symbicort, Ventolin, as needed doxycycline 100 mg by mouth twice a day, prednisone tapering dose. sputum culture pending. Plan to discharge patient today however not able to receive home O2 at this time. Discharge will be on Saturday. 2. Chronic and ongoing nicotine dependence. Nicotine patch 3. Family history of alpha 1 antitrypsin. alpha 1 and trypsin level and phenotype, IgE, 4. Oral tyra's. Resolved 5. DVT prophylaxis. Heparin subcu 6. GI prophylaxis Protonix 40 mg IV daily CODE STATUS: Full code Discharge plan: Discharge home tomorrow with home O2 Impression and plan of care have been directed as dictated by the signing physician. Soo Sierra nurse practitioner acting as scribe for signing physician. Objective - Vital Signs Vital signs: Vital Signs Temp 97.8 F 06/20/20 07:00 Pulse 94 06/20/20 11:51 Resp 20 06/20/20 07:00 BP 99/62 06/20/20 07:00 Pulse Ox 88 L 06/20/20 10:35 Intake & Output 06/19/20 06/20/20 06/20/20 18:59 06:59 18:59 Intake Total 200 Balance 200 Intake: Oral 200 Other: Voiding Method Bedside Commode Bedside Commode # Voids 2 2 - Labs CBC & Chem 7: 06/19/20 07:20 06/19/20 07:20 Labs: Abnormal Lab Results - Last 24 Hours (Table) 06/20/20 Range/Units 11:42 POC Glucose (mg/dL) 113 H (75-99) mg/dL Microbiology - Last 24 Hours (Table) 06/19/20 08:10 Gram Stain - Preliminary Sputum Sputum Culture - Preliminary
[2020-06-20] MEDS: MELATONIN 3 MG TABLET PO SCH (20:37)
[2020-06-21] MEDS: NICOTINE 14MG/24HR PATCH TRANSDERM SCH (07:35)
[2020-06-21] MEDS: predniSONE 20 MG TAB PO SCH (07:35)
[2020-06-21] MEDS: DOXYCYCLINE 100 MG CAP PO SCH (07:35)
[2020-06-21] MEDS: HEPARIN SODIUM,PORCINE 5,000 UNIT/ML 1 ML VIAL SQ SCH (07:36)
[2020-06-21] MEDS: PANTOPRAZOLE 40 MG/10 ML VIAL IVP SCH (07:36)
[2020-06-21] MEDS: IPRATROPIUM-ALBUTEROL 3 ML NEB INHALATION PRN ×2 (08:07→11:49)
[2020-06-21] MEDS: SYMBICORT 160-4.5 MCG INHALER INHALATION SCH (08:08)
[2020-06-21 08:26] VITALS: BP 106/72; RESP 18; TEMP 97.6
--- NOTE | 2020-06-21 08:40 | P.DS ---
Providers Date of admission: 06/18/20 06:17 Expected date of discharge: 06/21/20 Attending physician: Sophia Rushing MD Consults: 06/18/20 06:17 Consult Physician Routine Consulting Provider: Daniel Mcmillan Consult Reason/Comments: COPD exacerbation Do you want consulting provider notified?: Yes Primary care physician: [facility] Course: This is a 59-year-old patient of Dr. Lesia Tellez with a past medical history significant for COPD and psoriasis patient is a former smoker who also occasionally uses marijuana. Patient was seen about 2 weeks ago in the clinic complaining of shortness of breath at that time she was given albuterol and found relief. Patient states that during the last 2 weeks the albuterol has stopped working and she continues to have significant shortness of breath. She presented to the emergency room complaining of shortness of breath. Patient has a positive nonproductive cough. Denies any fever or chills. Patient has family history of alpha-1 antitrypsin deficiency with a brother who was zz positive and 2 sisters who are also zz positive. Her brother at the age of 64. Her father at the age of 64 for emphysema, as well. 06/19: She complained of a headache last night receiving Toradol with relief. Patient states that she feels the headache may be caused from the coughing and lack of caffeine. Patient states that she is feeling much better is able to breathe easier. Continues to have nebulizer treatments which will be changed to as needed. Patient no oral tyra's noted. 06/20: Patient is sitting up in chair resting comfortably without any acute distress. Patient states that she is doing much better and feeling that she is able to breathe better. Pulmonary has signed off. She is scheduled to see pulm onologist on 06/21. alpha-1 antitrypsin results are still pending. Patient will be assessed for home O2 oxygen needs. 06/21:patient was cleared for discharge yesterday however home oxygen could not be set up on the holidays so discharge was delayed until today. We will plan to set up home oxygen prior to her discharge. Patient was cleared for discharge by pulmonary medicine. She is currently on oral medications.patient has been afebrile, heart rate 83, blood pressure 106/72 and pulse ox 95% on 4 L nasal cannula. Alpha-1 antitrypsin level came back low at 77.4. IgE 101. She continues to have a congestive cough. Patient will be discharged home today in stable condition. Assessment/plan: 1. Acute hypoxic respiratory failure secondary to COPD. 2. Chronic and ongoing nicotine dependence. 3. Family history of alpha 1 antitrypsin. alpha 1 and trypsin level and phenotype, IgE, 4. Oral tyra's. 5. Chronic hypoxic respiratory failure requiring home O2 Discharge plan: home Impression and plan of care have been directed as dictated by the signing physician. Bee Baig nurse practitioner acting as scribe for signing physician. Patient Condition at Discharge: Good Plan - Discharge Summary Discharge Rx Participant: No New Discharge Prescriptions: New predniSONE [Deltasone] 40 mg PO DAILY #15 tab Melatonin 6 mg PO HS #0 tablet Famotidine [Pepcid] 20 mg PO DAILY #30 tablet Budesonide-Formot 160-4.5 Mcg [Symbicort 160-4.5 Mcg Inhaler] 2 puff INHALATION RT-BID #1 puff Doxycycline [Vibramycin] 100 mg PO BID #14 cap Continue [place]-3 Fatty Acids/Fish Oil [Fish Oil 1,000 mg Softgel] 1 cap PO DAILY Ipratropium-Albuterol Nebulize [Duoneb 0.5 mg-3 mg/3 ml Soln] 3 ml INHALATION RT-QID PRN PRN Reason: Shortness Of Breath Fluticasone Nasal [place] [Flonase Nasal [place]] 1 spray EA NOSTRIL DAILY Discontinued Albuterol Inhaler [Ventolin Hfa Inhaler] 2 puff INHALATION RT-QID PRN PRN Reason: Shortness Of Breath Discharge Medication List Fluticasone Nasal [place] [Flonase Nasal [place]] 1 spray EA NOSTRIL DAILY 06/18/20 [History] Ipratropium-Albuterol Nebulize [Duoneb 0.5 mg-3 mg/3 ml Soln] 3 ml INHALATION RT-QID PRN 06/18/20 [History] [place]-3 Fatty Acids/Fish Oil [Fish Oil 1,000 mg Softgel] 1 cap PO DAILY 06/18/20 [History] Budesonide-Formot 160-4.5 Mcg [Symbicort 160-4.5 Mcg Inhaler] 2 puff INHALATION RT-BID #1 puff 06/20/20 [Rx] Doxycycline [Vibramycin] 100 mg PO BID #14 cap 06/20/20 [Rx] Famotidine [Pepcid] 20 mg PO DAILY #30 tablet 06/20/20 [Rx] Melatonin 6 mg PO HS #0 tablet 06/20/20 [Rx] predniSONE [Deltasone] 40 mg PO DAILY #15 tab 06/20/20 [Rx] Follow up Appointment(s)/Referral(s): Daniel Mcmillan MD [STAFF PHYSICIAN] - 06/24/20 1:00 pm Luiz Mclaughlin MD [Primary Care Provider] - 06/28/20 11:15 am Patient Instructions/Handouts: COPD (Chronic Obstructive Pulmonary Disease) (DC), Chronic Lung Disease and Infection Prevention (DC) Activity/Diet/Wound Care/Special Instructions: Oxygen ordered through [facility]: [phone] Discharge Disposition: HOME SELF-CARE
[2020-06-21 12:03] VITALS: PULSE 90
[2020-06-21 13:35] LABS: Alpha 1 Anti-Trypsin 78 mg/dL (90 - 200); Alpha-1-Antitrypsin Phenotype MZ
--- NOTE | 2020-06-21 13:51 | P.PN ---
Subjective Progress Note Date: 06/21/20 Principal diagnosis: Acute exacerbation of chronic obstructive pulmonary disease This is a very pleasant 59-year-old female patient who follows with Dr. Calin Mclaughlin as her primary care provider. She has a history of psoriasis, rhinitis, ALLERGIES, chronic and ongoing tobacco dependence. She also has a family history of alpha 1 antitrypsin deficiency with a brother who was ZZ positive. He at age 64. Her father of age 64 emphysema as well. His been having increasing shortness of breath over the past several weeks. She was to see Dr. Valencia as a new patient in our office next week. The last 2 days however should her shortness of breath has gotten worse. She was using her grandsons nebulizer which did seem to help but she presented early this morning with shortness of breath, chest tightness and wheezing. She has occasional productive cough of clear sputum. Her O2 saturation on arrival on room air was 70%. She was initially placed on high flow nasal cannula. She is seen today in consultation on the regular medical floor. She is awake and alert in no acute distress. Currently on 4 L/m per nasal cannula and maintaining O2 saturation in the 90s. Chest x-ray reveals no acute pulmonary process. White count 17.0. Hemoglobin 16.1. Sodium 137. Potassium 4.3. Creatinine 0.57. Troponin negative. ProBNP 67. The patient is seen today 06/19/2020 in follow-up in the regular medical floor. She is sitting up at the bedside. Awake and alert in no acute distress. Breathing quite a bit easier today compared to yesterday. Maintaining good O2 saturations in the mid 90s on 4 L/m per nasal cannula. She's been afebrile. Hemodynamically stable. White count 27.3. Hemoglobin 15.2. Sodium 137. Potassium 4.3. Creatinine 0.80. Pro calcitonin 0.04. She is continued on DuoNeb inhalations, Symbicort, IV Solu-Medrol. Antibiotics in the form of doxycycline. NicoDerm patch is in place. The patient is seen today 06/20/2020 in follow-up on the regular medical floor. She is awake and alert in no acute distress. Breathing back to her baseline. Maintain O2 saturation in the mid 90s on room air. She's afebrile. Sputum culture pending. She remains on antibiotics in the form of doxycycline. Continued on Symbicort and DuoNeb inhalations. Prednisone taper. Habitrol patch in place. On 06/21/2020 patient seen in follow-up on the general medical surgical floor. Patient is breathing much easier, back to her baseline, currently on 4 L of oxygen and the pulse ox of 95%, hemodynamically stable, no fever or chills. She is sitting up in the recliner, she is fully dressed, she is getting ready to go home today. No new labs today. Serum IgE level is 101. Pro calcitonin level is 0.04. Patient has been treated with steroids, nebulized bronchodilators, responded well to treatments. Objective - Vital Signs Vital signs: Vital Signs Temp 97.6 F 06/21/20 07:00 Pulse 90 06/21/20 12:02 Resp 18 06/21/20 07:00 BP 106/72 06/21/20 07:00 Pulse Ox 95 06/21/20 07:00 Intake & Output 06/20/20 06/21/20 06/21/20 18:59 06:59 18:59 Intake Total 320 300 296 Balance 320 300 296 Intake: Oral 320 300 296 Other: # Voids 1 1 - Exam GENERAL EXAM: Alert, very pleasant, 59-year-old, female, 4 L of oxygen a pulse ox of 95% comfortable in no apparent distress. HEAD: Normocephalic/atraumatic. EYES: Normal reaction of pupils, equal size. Conjunctiva pink, sclera white. NOSE: Clear with pink turbinates. THROAT: No erythema or exudates. NECK: No masses, no JVD, no thyroid enlargement, no adenopathy. CHEST: No chest wall deformity. Symmetrical expansion. LUNGS: Equal air entry with no crackles, wheeze, rhonchi or dullness. CVS: Regular rate and rhythm, normal S1 and S2, no gallops, no murmurs, no rubs ABDOMEN: Soft, nontender. No hepatosplenomegaly, normal bowel sounds, no guarding or rigidity. EXTREMITIES: No clubbing, no edema, no cyanosis, 2+ pulses and upper and lower extremities. MUSCULOSKELETAL: Muscle strength and tone normal. SPINE: No scoliosis or deformity SKIN: No rashes CENTRAL NERVOUS SYSTEM: Alert and oriented -3. No focal deficits, tone is normal in all 4 extremities. PSYCHIATRIC: Alert and oriented -3. Appropriate affect. Intact judgment and insight. - Labs CBC & Chem 7: 06/19/20 07:20 06/19/20 07:20 Labs: Abnormal Lab Results - Last 24 Hours (Table) 06/19/20 06/19/20 Range/Units 07:20 07:20 [id number] 78 L 77.4 L (90 - 200) mg/dL Microbiology - Last 24 Hours (Table) 06/19/20 08:10 Gram Stain - Final Sputum Sputum Culture - Final Assessment and Plan Plan: Assessment: Acute hypoxic respiratory failure secondary to an acute exacerbation of chronic obstructive pulmonary disease Chronic and ongoing tobacco dependence Psoriasis Seasonal ALLERGIES/rhinitis Family history of alpha-1 antitrypsin deficiency, ZZ Plan: Patient is doing well, significantly improved, breathing much more comfortably. Back to her baseline, no acute events overnight, vital signs have been stable, no fever or chills, discharge is pending for today, showing an outpatient follow-up with Dr. Valencia in the office. I performed a history & physical examination of the patient and discussed their management with my nurse practitioner, Suyapa Zazueta. I reviewed the nurse practitioner's note and agree with the documented findings and plan of care. Lung sounds are positive for diminished breath sounds. The findings and the impression was discussed with the patient. I attest to the documentation by the nurse practitioner. Time with Patient: Less than 30
== END 2020-06-21 14:17 | disposition home or self-care (01) | DRG 189 ==
LOC: EC 04:41 → 4SSUR 06:17
PROVIDERS: ADMIT Internal Medicine; ATTEND Internal Medicine
DX: J96.21 Acute and chronic respiratory failure with hypoxia (principal); B37.0 Candidal stomatitis; J44.1 Chronic obstructive pulmonary disease with (acute) exacerbation; L40.9 Psoriasis, unspecified; J31.0 Chronic rhinitis; R51 Headache; F17.200 Nicotine dependence, unspecified, uncomplicated; Z79.899 Other long term (current) drug therapy; Z98.890 Other specified postprocedural states; Z88.0 Allergy status to penicillin; Z82.5 Family history of asthma and other chronic lower respiratory diseases; Z84.81 Family history of carrier of genetic disease
CPT/HCPCS: 36415; 71045; 80053; 82103; 82104; 82785; 83605; 83735; 83880; 84145; 84484; 85025; 85610; 85730; 87070; 87205; 93005; 94640; 96374; 99291

== ENCOUNTER 2020-08-08 19:11 | Inpatient (IN) | payer OTHER ==
[2020-08-08] MEDS ORDERED: SODIUM CHLORIDE 0.9% 500 ML 500 ML IV STA (19:31)
--- NOTE | 2020-08-08 19:34 | ED ---
General Adult HPI - General Chief complaint: Shortness of Breath Stated complaint: COPD Time Seen by Provider: 08/08/20 19:21 Source: patient Mode of arrival: wheelchair Limitations: no limitations - History of Present Illness Initial comments: Dictation was produced using [employer] dictation software. please excuse any grammatical, word or spelling errors. This patient was cared for during a federal and state declared state of emergency secondary to Covid 19 Chief Complaint: 60-year-old male past medical history of COPD and alpha-1 a ntitrypsin deficiency presents for shortness of breath. History of Present Illness: Patient is a 60-year-old female she presents today with shortness of breath for last 2-3 days. 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 She wears 2 L of oxygen normally. Patient states she over the last 48 hours has been having a lot of hard time with breathing. She states she can't even walk to the bathroom without feeling so short of breath. Patient reports that several months ago she was admitted for 4 days for COPD exacerbation. She was recently diagnosed with alpha-1 antitrypsin deficiency. She is scheduled to start infusions shortly. Her java technical manager is Dr. Mcmillan. She does report cough with adduction of brown sputum. She denies any constitutional symptoms. she has no pain complaints. She is accompanied by her . The ROS documented in this emergency department record has been reviewed and c onfirmed by me. Those systems with pertinent positive or negative responses have been documented in the HPI. All other systems are other negative and/or noncontributory. PHYSICAL EXAM: General Impression: Alert and oriented x3, mildly distressed HEENT: Normocephalic atraumatic, extra-ocular movements intact, pupils equal and reactive to light bilaterally, mucous membranes moist. Cardiovascular: Heart regular rate and rhythm Chest: 3 word sentences, no retractions, no tachypnea, diminished lung sounds bilaterally, appears dyspneic Abdomen: abdomen soft, non-tender, non-distended, no organomegaly Musculoskeletal: Pulses present and equal in all extremities, no peripheral edema Motor: no focal deficits noted Neurological: CN II-XII grossly intact, no focal motor or sensory deficits noted Skin: Intact with no visualized rashes Psych: Normal affect and mood ED course: 60-year-old male presents with worsening dyspnea. She has extensive history of COPD and pulmonary disease. vital signs upon arrival shows heart rate of 106, rest of vital signs within acceptable limits. Laboratory evaluation obtained. Leukocytosis of 14.0. Patient has baseline elevated white blood cells. Slightly from demargination from chronic steroid use. Coag panel unremarkable. Metabolic panel is negative. Chronic enzymes negative. Brain natruretic peptide is negative. Chest x-ray shows small pleura l effusion and interstitial infiltrates otherwise no changes. Patient given breathing treatment with slight improvement.case discussed with Dr. Garnica was went except patient's care. Pulmonology will be consulted. Patient will be admitted for medical monitoring and continue breathing treatments. EKG interpretation: Ventricular rate 96, normal sinus rhythm,. 120, QRS 78, QTc 442. No KS prolongation, no QTC prolongation, no ST or T-wave changes noted. Overall, this EKG is unremarkable - Related Data Home Medications Medication Instructions Recorded Confirmed RX: Fluticasone Nasal [place] 1 spray EA NOSTRIL DAILY 06/18/20 06/18/20 [Flonase Nasal [place]] RX: Ipratropium-Albuterol Nebulize 3 ml INHALATION RT-QID PRN 06/18/20 06/18/20 [Duoneb 0.5 mg-3 mg/3 ml Soln] Albuterol Sulfate [Albuterol 1 puff PO RT-Q4H PRN 08/08/20 08/08/20 Sulfate Hfa] Famotidine [Pepcid] 20 mg PO DAILY PRN 08/08/20 08/08/20 Previous Rx's Medication Instructions Recorded RX: Budesonide-Formot 160-4.5 Mcg 2 puff INHALATION RT-BID #1 puff 06/20/20 [Symbicort 160-4.5 Mcg Inhaler] Allergies Allergy/AdvReac Type Severity Reaction Status Date / Time Penicillins Allergy Unknown Verified 08/08/20 20:29 Review of Systems ROS Statement: Those systems with pertinent positive or pertinent negative responses have been documented in the HPI. ROS Other: All systems not noted in ROS Statement are negative. Past Medical History Past Medical History: COPD Additional Past Medical History / Comment(s): PSORIASIS History of Any Multi-Drug Resistant Organisms: None Reported Past Surgical History: Section Past Psychological History: No Psychological Hx Reported Smoking Status: Former smoker Past Alcohol Use History: Occasional Past Drug Use History: None Reported - Past Family History Father Family Medical History: COPD Additional Family Medical History / Comment(s): Her father at age 64 of emphysema. Her brother at age 64 of emphysema. He was positive for alpha- 1 antitrypsin deficiency, ZZ. Brother(s) Family Medical History: COPD General Exam Limitations: no limitations Course Vital Signs 08/08/20 08/08/20 08/08/20 19:17 20:19 20:20 Temperature 98.0 F Pulse Rate 106 H 92 Respiratory 22 26 H Rate Blood Pressure 124/75 O2 Sat by Pulse 94 L Oximetry Medical Decision Making - Lab Data Result diagrams: 08/08/20 19:40 08/08/20 19:40 Lab Results 08/08/20 08/08/20 08/08/20 Range/Units 19:40 19:40 19:40 WBC 14.0 H (3.8-10.6) k/uL RBC 4.86 (3.80-5.40) m/uL Hgb 14.6 (11.4-16.0) gm/dL Hct 44.6 (34.0-46.0) % MCV 91.8 (80.0-100.0) fL MCH 30.0 (25.0-35.0) pg MCHC 32.7 (31.0-37.0) g/dL RDW 13.3 (11.5-15.5) % Plt Count 371 (150-450) k/uL Neutrophils % 64 % Lymphocytes % 21 % Monocytes % 7 % Eosinophils % 5 % Basophils % 1 % Neutrophils # 8.9 H (1.3-7.7) k/uL Lymphocytes # 2.9 (1.0-4.8) k/uL Monocytes # 1.0 (0-1.0) k/uL Eosinophils # 0.8 H (0-0.7) k/uL Basophils # 0.1 (0-0.2) k/uL PT 9.7 (9.0-12.0) sec INR 0.9 (<1.2) APTT 28.0 (22.0-30.0) sec Sodium 137 (137-145) mmol/L Potassium 4.5 (3.5-5.1) mmol/L Chloride 103 (98-107) mmol/L Carbon Dioxide 25 (22-30) mmol/L Anion Gap 9 mmol/L BUN 14 (7-17) mg/dL Creatinine 0.88 (0.52-1.04) mg/dL Est GFR (CKD-EPI)AfAm 83 (>60 ml/min/1.73 sqM) Est GFR (CKD-EPI)NonAf 72 (>60 ml/min/1.73 sqM) Glucose 115 H (74-99) mg/dL Calcium 9.5 (8.4-10.2) mg/dL Total Bilirubin 0.5 (0.2-1.3) mg/dL AST 22 (14-36) U/L ALT 12 (4-34) U/L Alkaline Phosphatase 74 (38-126) U/L Troponin I (0.000-0.034) ng/mL NT-Pro-B Natriuret Pep pg/mL Total Protein 8.2 (6.3-8.2) g/dL Albumin 4.5 (3.5-5.0) g/dL 08/08/20 08/08/20 Range/Units 19:40 19:40 WBC (3.8-10.6) k/uL RBC (3.80-5.40) m/uL Hgb (11.4-16.0) gm/dL Hct (34.0-46.0) % MCV (80.0-100.0) fL MCH (25.0-35.0) pg MCHC (31.0-37.0) g/dL RDW (11.5-15.5) % Plt Count (150-450) k/uL Neutrophils % % Lymphocytes % % Monocytes % % Eosinophils % % Basophils % % Neutrophils # (1.3-7.7) k/uL Lymphocytes # (1.0-4.8) k/uL Monocytes # (0-1.0) k/uL Eosinophils # (0-0.7) k/uL Basophils # (0-0.2) k/uL PT (9.0-12.0) sec INR (<1.2) APTT (22.0-30.0) sec Sodium (137-145) mmol/L Potassium (3.5-5.1) mmol/L Chloride (98-107) mmol/L Carbon Dioxide (22-30) mmol/L Anion Gap mmol/L BUN (7-17) mg/dL Creatinine (0.52-1.04) mg/dL Est GFR (CKD-EPI)AfAm (>60 ml/min/1.73 sqM) Est GFR (CKD-EPI)NonAf (>60 ml/min/1.73 sqM) Glucose (74-99) mg/dL Calcium (8.4-10.2) mg/dL Total Bilirubin (0.2-1.3) mg/dL AST (14-36) U/L ALT (4-34) U/L Alkaline Phosphatase (38-126) U/L Troponin I <0.012 (0.000-0.034) ng/mL NT-Pro-B Natriuret Pep 67 pg/mL Total Protein (6.3-8.2) g/dL Albumin (3.5-5.0) g/dL Disposition Clinical Impression: COPD exacerbation Disposition: ADMITTED IP TO THIS HOSP Condition: Fair Referrals: Luiz Mclaughlin MD [Primary Care Provider] - 1-2 days Decision Time: 20:38
[2020-08-08] MEDS ORDERED: IPRATROPIUM 0.5 MG/2.5 ML NEBU INHALATION STA (19:42)
[2020-08-08] MEDS ORDERED: ALBUTEROL NEBULIZED 2.5 MG/3 ML INHALATION STA (19:42)
[2020-08-08] MEDS ORDERED: DEXAMETHASONE SOD PHOSPHATE 10 MG/ML 1 ML VIAL IV STA (19:42)
[2020-08-08 19:55] LABS: Basophils # (A) 0.1 k/uL (0-0.2); Basophils % (A) 1 %; Eosinophils # (A) 0.8 k/uL (0-0.7); Eosinophils % (A) 5 %; HCT 44.6 % (34.0-46.0); HGB 14.6 gm/dL (11.4-16.0); Lymphocytes # (A) 2.9 k/uL (1.0-4.8); Lymphocytes % (A) 21 %; MCHC 32.7 g/dL (31.0-37.0); MCV 91.8 fL (80.0-100.0); Mean Platelet Volume 7.2; Monocytes % (A) 7 %; Neutrophils # (A) 8.9 k/uL (1.3-7.7); Neutrophils % (A) 64 %; Platelet Count 371 k/uL (150-450); RBC 4.86 m/uL (3.80-5.40); RDW 13.3 % (11.5-15.5)
[2020-08-08 20:02] LABS: Albumin 4.5 g/dL (3.5-5.0); Calcium 9.5 mg/dL (8.4-10.2); INR 0.9 (<1.2); Prothrombin Time 9.7 sec (9.0-12.0); Total Bilirubin 0.5 mg/dL (0.2-1.3); Total Protein 8.2 g/dL (6.3-8.2)
--- NOTE | 2020-08-08 20:11 | XR ---
EXAMINATION TYPE: XR chest 2V DATE OF EXAM: 08/08/2020 COMPARISON: 06/24/2020 HISTORY: Difficulty breathing. TECHNIQUE: FINDINGS: There is no heart failure nor confluent pneumonic infiltrate. There is some coarsening of i nterstitial markings in the lower lobes. Heart size is normal. There are no hilar masses. There are c hest leads. There is very slight blunting of the costophrenic angles. IMPRESSION: Small pleural effusions and interstitial infiltrates at the lung bases unchanged compared to old exam. No heart failure.
[2020-08-08 20:28] LABS: Potassium 4.5 mmol/L (3.5-5.1)
[2020-08-08] MEDS ORDERED: AZITHROMYCIN 500 MG TAB PO ONE (20:45)
[2020-08-08] MEDS ORDERED: IPRATROPIUM-ALBUTEROL 3 ML NEB INHALATION PRN (22:13)
[2020-08-08] MEDS ORDERED: ALBUTEROL NEBULIZED 2.5 MG/3 ML INHALATION PRN (22:13)
[2020-08-08] MEDS ORDERED: FLUTICASONE 50MCG/SPRAY NASAL 16GM EA NOSTRIL PRN (22:30)
[2020-08-09] MEDS: IPRATROPIUM-ALBUTEROL 3 ML NEB INHALATION PRN ×3 (00:11→08:54)
[2020-08-09] MEDS ORDERED: SYMBICORT 160-4.5 MCG INHALER INHALATION SCH (08:00)
--- NOTE | 2020-08-09 11:22 | P.HPIM ---
History of Present Illness H&P Date: 08/09/20 Chief Complaint: ALEXANDER HISTORY OF PRESENT ILLNESS This is a 60-year-old female patient of Dr. Luiz Mclaughlin and Dr. 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 Patient states that she was to start infusion treatments for alpha 1 antitrypsin deficiency tomorrow. This has been ordered through Dr. Mcmillan's office and performed at home. She states she quit smoking in May 2019. Patient gives history of 2 nights ago starting to have increasing shortness of breath with cough and wheezing. She states she used her own neb treatment several times and this did not seem to help. She increased her oxygen which is normally at 2 L up to 3 L nasal cannula. After her reading treatment yesterday evening, she couldn't catch her breath. She denies any known COVID-19 exposure, denies fever or chills. She denies any chest pain. Patient came into [facility] emergency center for evaluation. She was found to be afebrile, heart rate 106, blood pressure 124/75, pulse ox 94% on oxygen. EKG was a sinus rhythm at a rate of [address] changes. WBC 14 otherwise CBC unremarkable. Electrolytes and renal function normal. Blood sugar 115. Liver function tests were normal. ProBNP 67. Troponin negative. Chest x-ray reveals small pleural effusions and interstitial infiltrates of the lung bases unchanged compared to old exam. No heart failure. Patient was started on DuoNeb treatments, Symbicort, and azithromycin and admitted to the [facility] floor and consult with pulmonary medicine. REVIEW OF SYSTEMS Constitutional: No fever, no chills, no night sweats. No weight change. No wea kness, reports fatigue. No daytime sleepiness. EENT: No headache. No blurred vision or double vision, no loss of vision. No loss of Hearing, no ringing in the ears, no dizziness. No nasal drainage or congestion. No epistaxis. No sore throat. Lungs: Reports shortness of breath, Reportscough,Reports sputum production. Reports wheezing. Cardiovascular: No chest pain, no lower extremity edema. No palpitations. No paroxysmal nocturnal dyspnea. No orthopnea. No lightheadedness or dizziness. No syncopal episodes. Abdominal: No abdominal pain. No nausea, vomiting. No diarrhea. No consti pation. No bloody or tarry stools.. No loss of appetite. Genitourinary: No dysuria, increased frequency, urgency. No urinary retention. Musculoskeletal: No myalgias. No muscle weakness, no gait dysfunction, no frequent falls. Integumentary: No wounds, no lesions. No rash or pruritus. Neurologic: No aphasia. No facial droop. No change in mentation. No head injury. No headache. Psychiatric: No depression. No anxiety. Endocrine: No abnormal blood sugars. SOCIAL HISTORY Patient was a smoker of less than one pack per day for 40 years and quit in May 2019. She denies any alcohol use, marijuana use, illicit drug use. She is and lives at home with her . She has inhalers, nebulizers and oxygen at 2 L nasal cannula at home. She does not have a CPAP. FAMILY HISTORY Father at age 64 from emphysema and his symptoms to be positive for alpha 1 antitrypsin deficiency. Mother at age 88 from C. difficile colitis with history of COPD. Patient has 2 sisters that are alpha-1 antitrypsin seen at and 1 sibling that is S the. Patient has 1 brother that at age 64 and was also and titrate seen . One sister at age 63 with history of Down syndrome. Patient's 3 children with no major medical problems. PHYSICAL EXAMINATION Gen: This is a 60-year-old female. Patient is sitting up on the edge of the bed with mild respiratory distress. Mild accessory muscle usage and intercostal retractions. Audible wheezing HEENT: Head is atraumatic, normocephalic. Pupils equal, round. Sclerae is anicteric. NECK: Supple. No JVD. No lymphadenopathy. No thyromegaly. LUNGS: Bilateral end expiratory wheeze, diminished breath sounds throughout. Mild accessory muscle usage and intercostal retractions. Audible wheezing HEART: Regular rate and rhythm. No murmur. ABDOMEN: Soft. Bowel sounds are present. No masses. No tenderness. EXTREMITIES: No pedal edema. No calf tenderness. Dorsalis pedis +2 bilaterally. NEUROLOGICAL: Patient is awake, alert and oriented x3. Cranial nerves 2 through 12 are grossly intact. ASSESSMENT AND PLAN 1. Acute on chronic hypoxic respiratory failure secondary to COPD exacerbation. Patient started on Solu-Medrol 60 mg IV every 6 hours, continue DuoNeb treatments scheduled 4 times daily and also as needed, Pulmicort 1 mg twice daily, consult with pulmonary medicine. 2. Alpha-1 antitrypsin seen deficiency, managed by Dr. Mcmillan. 3. Gastroesophageal reflux disease. Continue Pepcid. 4. Seasonal ALLERGIES. Continue Flonase. 5. Remote history of tobacco use and dependence. Patient quit in 2018. 6. Chronic hypoxic respiratory failure on home O2 at 2 L nasal cannula. 7. DVT prophylaxis. Heparin subcu. Patient will be admitted to the hospital for a minimum of 2 night stay. Discharge plan: home. Impression and plan of care have been directed as dictated by the signing physician. Bee Baig nurse practitioner acting as scribe for signing physician. Past Medical History Past Medical History: COPD Additional Past Medical History / Comment(s): PSORIASIS, alpha-1 antitrypsin deficiency MZ History of Any Multi-Drug Resistant Organisms: None Reported Past Surgical History: Section Past Anesthesia/Blood Transfusion Reactions: No Reported Reaction Past Psychological History: No Psychological Hx Reported Smoking Status: Former smoker Past Alcohol Use History: Occasional Additional Past Alcohol Use History / Comment(s): smoked or 40 years between [id number]. Recently quit in May of 2020. Past Drug Use History: None Reported - Past Family History Father Family Medical History: COPD Additional Family Medical History / Comment(s): Her father at age 64 of emphysema. Brother(s) Family Medical History: COPD Additional Family Medical History / Comment(s): Her brother at age 64 of emphysema. He was positive for alpha-1 antitrypsin deficiency, ZZ. Medications and Allergies Home Medications Medication Instructions Recorded Confirmed Type Fluticasone Nasal [place] [Flonase 1 spray EA NOSTRIL DAILY PRN 06/18/20 08/08/20 History Nasal [place]] Ipratropium-Albuterol Nebulize 3 ml INHALATION RT-QID PRN 06/18/20 08/08/20 History [Duoneb 0.5 mg-3 mg/3 ml Soln] Budesonide-Formot 160-4.5 Mcg 2 puff INHALATION RT-BID #1 puff 06/20/20 08/08/20 Rx [Symbicort 160-4.5 Mcg Inhaler] Albuterol Sulfate [Albuterol 1 puff PO RT-Q4H PRN 08/08/20 08/08/20 History Sulfate Hfa] Famotidine [Pepcid] 20 mg PO DAILY PRN 08/08/20 08/08/20 History Allergies Allergy/AdvReac Type Severity Reaction Status Date / Time Penicillins Allergy Unknown Verified 08/08/20 20:29 Physical Exam Vitals: Vital Signs Temp Pulse Pulse Resp BP BP Pulse Ox 08/09/20 09:04 96 08/09/20 08:55 92 08/09/20 08:00 90 18 08/09/20 07:00 97.8 F 90 18 126/76 91 L 08/09/20 05:54 100 08/09/20 05:39 96 08/09/20 04:15 19 08/09/20 01:40 97.6 F 94 19 105/58 93 L 08/09/20 00:21 100 08/09/20 00:11 100 08/09/20 00:00 18 08/08/20 21:35 98.4 F 109 H 19 153/78 94 L 08/08/20 21:03 105 H 18 103/66 94 L 08/08/20 20:44 98 08/08/20 20:20 92 08/08/20 20:19 26 H 08/08/20 19:17 98.0 F 106 H 22 124/75 94 L Intake and Output 08/08/20 08/09/20 08/09/20 22:59 06:59 14:59 Other: Voiding Method Toilet Toilet # Voids 1 2 Weight 78.018 kg Results CBC & Chem 7: 08/08/20 19:40 08/08/20 19:40 Labs: Abnormal Lab Results - Last 24 Hours (Table) 08/08/20 08/08/20 Range/Units 19:40 19:40 WBC 14.0 H (3.8-10.6) k/uL Neutrophils # 8.9 H (1.3-7.7) k/uL Eosinophils # 0.8 H (0-0.7) k/uL Glucose 115 H (74-99) mg/dL Thrombosis Risk Factor Assmnt - Choose All That Apply Any of the Below Risk Factors Present?: Yes Each Factor Represents 1 point: Abnormal pulmonary function (COPD), Age 41-60 years, Obesity (BMI >25) Other Risk Factors: No Other congenital or acquired thrombophilia - If yes, enter type in comment: No Thrombosis Risk Factor Assessment Total Risk Factor Score: 3 Thrombosis Risk Factor Assessment Level: Moderate Risk
[2020-08-09] MEDS: methylPREDNISolone SOD SUCCI 125 MG/2 ML VIAL IV SCH ×2 (11:48→18:00)
[2020-08-09] MEDS: IPRATROPIUM-ALBUTEROL 3 ML NEB INHALATION SCH ×3 (12:20→19:37)
[2020-08-09 12:54] LABS: Glucose,Whole Blood 111 mg/dL (75-99)
[2020-08-09] MEDS: INSULIN ASPART (NovoLOG) 100 UNIT/ML VIAL SQ SCH ×3 (12:57→20:51)
--- NOTE | 2020-08-09 13:45 | P.CNPUL ---
History of Present Illness Consult date: 08/09/20 Reason for consult: COPD History of present illness: This is a 60-year-old female patient known history of COPD with chronic hypoxic respiratory failure maintained on oxygen at 3 L per minute nasal cannula. The patient also comes from an extensive family history of alpha-1 antitrypsin deficiency including ZZ and MZ disease and siblings and parents. Noted the patient's brother from this disease at age of 64 and he had ZZ disease and the patient had 2 sisters with the same problem. Another sibling with MZ disease. The patient herself has MZ disease and the patient will be started on Prolastin replacement therapy on outpatient basis under the care of Dr. Valencia. The patient comes in to the hospital because of worsening shortness of breath and COPD exacerbation. She had increased dyspnea cough chest tightness and wheezing. The exact culprit is not clear the patient claims that she has quit smoking for now. No significant sputum production. She has a congested cough and unable to bring up any mucus. She has been maintained on Symbicort as maintenance and she uses albuterol about treatments around the clock on Estrace basis. For now, she is admitted to the medical floor. No exposure to COVID 19. The white cell count is at 14. Rest of the blood work and electrodes are all within normal limits. Chest x-ray showing a small pleural effusion and some interstitial changes in lung bases bilaterally compared to the previous examination. There are some coarse interstitial markings in the lung bases. The patient is afebrile. The patient is currently on 3 L of oxygen by nasal cannula with a pulse of 71%. Review of Systems CONSTITUTIONAL: Denies any recent significant weight loss or weight gain. EYES: Denies change in vision. EARS, NOSE, MOUTH, THROAT: Denies headaches, denies sore throat. CARDIOVASCULAR: Denies chest pain, palpitations or syncopal episodes. RESPIRATORY: Positive for shortness of breath, cough, congestion no hemoptysis. GASTROINTESTINAL: Denies change in appetite, denies abdominal pain GENITOURINARY: Denies hematuria, denies infections. MUSKULOSKELETAL: Denies pain, denies swelling. INTEGUMENTARY: Positive psoriasis NEUROLOGICAL: Denies recent memory loss, no recent seizure activity. PSYCHIATRIC: Denies anxiety, denies depression. HEMATOLOGIC/LYMPHATIC: Denies anemia, denies enlarged lymph nodes. Past Medical History Past Medical History: COPD Additional Past Medical History / Comment(s): PSORIASIS, alpha-1 antitrypsin deficiency MZ History of Any Multi-Drug Resistant Organisms: None Reported Past Surgical History: Section Past Anesthesia/Blood Transfusion Reactions: No Reported Reaction Past Psychological History: No Psychological Hx Reported Smoking Status: Former smoker Past Alcohol Use History: Occasional Additional Past Alcohol Use History / Comment(s): smoked or 40 years between [id number]. Recently quit in May of 2020. Past Drug Use History: None Reported - Past Family History Father Family Medical History: COPD Additional Family Medical History / Comment(s): Her father at age 64 of emphysema. Brother(s) Family Medical History: COPD Additional Family Medical History / Comment(s): Her brother at age 64 of emphysema. He was positive for alpha-1 antitrypsin deficiency, ZZ. Medications and Allergies Home Medications Medication Instructions Recorded Confirmed Type Fluticasone Nasal [place] [Flonase 1 spray EA NOSTRIL DAILY PRN 06/18/20 08/08/20 History Nasal [place]] Ipratropium-Albuterol Nebulize 3 ml INHALATION RT-QID PRN 06/18/20 08/08/20 History [Duoneb 0.5 mg-3 mg/3 ml Soln] Budesonide-Formot 160-4.5 Mcg 2 puff INHALATION RT-BID #1 puff 06/20/20 08/08/20 Rx [Symbicort 160-4.5 Mcg Inhaler] Albuterol Sulfate [Albuterol 1 puff PO RT-Q4H PRN 08/08/20 08/08/20 History Sulfate Hfa] Famotidine [Pepcid] 20 mg PO DAILY PRN 08/08/20 08/08/20 History Allergies Allergy/AdvReac Type Severity Reaction Status Date / Time Penicillins Allergy Unknown Verified 08/08/20 20:29 Physical Exam Vitals: Vital Signs Temp Pulse Pulse Resp BP BP BP 08/09/20 12:32 96 08/09/20 12:21 92 08/09/20 11:13 98 F 99 20 123/66 08/09/20 09:04 96 08/09/20 08:55 92 08/09/20 08:00 90 18 08/09/20 07:00 97.8 F 90 18 126/76 08/09/20 05:54 100 08/09/20 05:39 96 08/09/20 04:15 19 08/09/20 01:40 97.6 F 94 19 105/58 08/09/20 00:21 100 08/09/20 00:11 100 08/09/20 00:00 18 08/08/20 21:35 98.4 F 109 H 19 153/78 08/08/20 21:03 105 H 18 103/66 08/08/20 20:44 98 08/08/20 20:20 92 08/08/20 20:19 26 H 08/08/20 19:17 98.0 F 106 H 22 124/75 Pulse Ox 08/09/20 12:32 08/09/20 12:21 08/09/20 11:13 91 L 08/09/20 09:04 08/09/20 08:55 08/09/20 08:00 08/09/20 07:00 91 L 08/09/20 05:54 08/09/20 05:39 08/09/20 04:15 08/09/20 01:40 93 L 08/09/20 00:21 08/09/20 00:11 08/09/20 00:00 08/08/20 21:35 94 L 08/08/20 21:03 94 L 08/08/20 20:44 08/08/20 20:20 08/08/20 20:19 08/08/20 19:17 94 L Intake and Output 08/08/20 08/09/20 08/09/20 22:59 06:59 14:59 Other: Voiding Method Toilet Toilet # Voids 1 2 Weight 78.018 kg GENERAL EXAM: Alert, pleasant 59-year-old female patient, on 3 L nasal cannula, comfortable in no apparent distress. HEAD: Normocephalic. EYES: Normal reaction of pupils, equal size. NOSE: Clear with pink turbinates. THROAT: No erythema or exudates. NECK: No masses, no JVD. CHEST: No chest wall deformity. LUNGS: Equal air entry with bilateral end expiratory wheeze, diminished. CVS: S1 and S2 normal with no audible murmur, regular rhythm. ABDOMEN: No hepatosplenomegaly, normal bowel sounds, no guarding or rigidity. SPINE: No scoliosis or deformity SKIN: Areas of psoriasis CENTRAL NERVOUS SYSTEM: No focal deficits, tone is normal in all 4 extremities. EXTREMITIES: There is no peripheral edema. No clubbing, no cyanosis. Peripheral pulses are intact. Results - Laboratory Findings CBC and BMP: 08/08/20 19:40 08/08/20 19:40 PT/INR, D-dimer PT 9.7 sec (9.0-12.0) 08/08/20 19:40 INR 0.9 (<1.2) 08/08/20 19:40 Abnormal lab findings: Abnormal Labs 08/08/20 08/08/20 08/09/20 19:40 19:40 12:53 WBC 14.0 H Neutrophils # 8.9 H Eosinophils # 0.8 H Glucose 115 H POC Glucose (mg/dL) 111 H - Diagnostic Findings Chest x-ray: image reviewed Assessment and Plan Plan: 1 acute exacerbation of chronic COPD with secondary shortness of breath 2 Severe COPD, MZ genotype/Alpha-1 antitrypsin deficiency., Serum levels of 84.3 mg/dL and the patient will be started on Prolastin replacement therapy. The patient has severe obstructive airway disease with a baseline FEV1 of 42% of predicted 3 Family history of alpha-1 antitrypsin deficiency. 4 Chronic hypoxic respiratory failure, maintained on oxygen at 3 L per minute nasal cannula. 5 History of psoriasis 6 Seasonal ALLERGIC rhinitis Plan DuoNeb nebulized treatment [id number] IV Solu Medrol Empiric antibiotic coverage with Zithromax. Continue Pulmicort Respules 1 mg twice a day and add Perforomist nebulized treatments 20 mg twice a day Outpatient Prolastin replacement therapy Action therapy at 3 L per minute nasal cannula Smoking cessation counseling Familial counseling regarding alpha-1 anti-trypsin deficiency Consider replacing the Symbicort with Trelegy Ellipta on outpatient basis.
[2020-08-09] MEDS: guaiFENesin-DM 600/30MG 1 EACH TAB.ER.12H PO SCH ×2 (14:20→20:47)
[2020-08-09 17:51] LABS: Glucose,Whole Blood 133 mg/dL (75-99)
[2020-08-09] MEDS: FORMOTEROL FUMARATE 20 MCG/2 ML NEBU INHALATION SCH (19:37)
[2020-08-09] MEDS: BUDESONIDE 1 MG/2 ML NEBU INHALATION SCH (19:37)
[2020-08-09 20:46] LABS: Glucose,Whole Blood 134 mg/dL (75-99)
[2020-08-09] MEDS: HEPARIN SODIUM,PORCINE 5,000 UNIT/ML 1 ML VIAL SQ SCH (20:47)
[2020-08-09] MEDS: AZITHROMYCIN 500 MG TAB PO SCH (20:52)
[2020-08-09] MEDS: FAMOTIDINE 20 MG TAB PO PRN (20:54)
[2020-08-10] MEDS: methylPREDNISolone SOD SUCCI 125 MG/2 ML VIAL IV SCH ×2 (00:03→06:34)
[2020-08-10 06:34] LABS: Glucose,Whole Blood 127 mg/dL (75-99)
[2020-08-10] MEDS: INSULIN ASPART (NovoLOG) 100 UNIT/ML VIAL SQ SCH ×4 (06:39→21:04)
[2020-08-10] MEDS: HEPARIN SODIUM,PORCINE 5,000 UNIT/ML 1 ML VIAL SQ SCH ×2 (08:27→21:14)
[2020-08-10] MEDS: guaiFENesin-DM 600/30MG 1 EACH TAB.ER.12H PO SCH ×2 (08:27→20:55)
[2020-08-10] MEDS: FORMOTEROL FUMARATE 20 MCG/2 ML NEBU INHALATION SCH ×2 (08:52→20:54)
[2020-08-10] MEDS: BUDESONIDE 1 MG/2 ML NEBU INHALATION SCH ×2 (08:52→20:54)
[2020-08-10] MEDS: IPRATROPIUM-ALBUTEROL 3 ML NEB INHALATION SCH ×4 (08:52→20:54)
[2020-08-10 12:29] LABS: Glucose,Whole Blood 100 mg/dL (75-99)
--- NOTE | 2020-08-10 13:08 | P.PN ---
Subjective Progress Note Date: 08/10/20 Principal diagnosis: Acute exacerbation of chronic COPD This is a 60-year-old female patient known history of COPD with chronic hypoxic respiratory failure maintained on oxygen at 3 L per minute nasal cannula. The patient also comes from an extensive family history of alpha-1 antitrypsin deficiency including ZZ and MZ disease and siblings and parents. Noted the patient's brother from this disease at age of 64 and he had ZZ disease and the patient had 2 sisters with the same problem. Another sibling with MZ disease. The patient herself has MZ disease and the patient will be started on Prolastin replacement therapy on outpatient basis under the care of Dr. Valencia. The patient comes in to the hospital because of worsening shortness of breath and COPD exacerbation. She had increased dyspnea cough chest tightness and wheezing. The exact culprit is not clear the patient claims that she has quit smoking for now. No significant sputum production. She has a congested cough and unable to bring up any mucus. She has been maintained on Symbicort as maintenance and she uses albuterol about treatments around the clock on Estrace basis. For now, she is admitted to the medical floor. No exposure to COVID 19. The white cell count is at 14. Rest of the blood work and electrodes are all within normal limits. Chest x-ray showing a small pleural effusion and some interstitial changes in lung bases bilaterally compared to the previous examination. There are some coarse interstitial markings in the lung bases. The patient is afebrile. The patient is currently on 3 L of oxygen by nasal cannula with a pulse of 71%. On 08/02/2020 patient seen in follow-up in medical surgical floor. She is breathing easier today, she is tolerating ambulation, lung sounds are diminished, with no significant wheezing, rhonchi or crackles, she is on 2-1/2 liters of oxygen with pulse ox of 91-92%, she's been afebrile, hemodynamically patient has been stable. Patient is on nebulized bronchodilators, IV steroids, she is improving. No significant congestion or phlegm production. No fever or chills Objective - Vital Signs Vital signs: Vital Signs Temp 97.8 F 08/10/20 08:01 Pulse 73 08/10/20 12:11 Resp 18 08/10/20 08:01 BP 116/68 08/10/20 08:01 Pulse Ox 91 L 08/10/20 08:01 Intake & Output 08/09/20 08/10/20 08/10/20 18:59 06:59 18:59 Intake Total 300 Balance 300 Intake: Oral 300 Other: Voiding Method Toilet Toilet Toilet # Voids 1 1 - Exam GENERAL EXAM: Alert, very pleasant, 60-year-old white female on oxygen, ambulating in the room, tolerating it well omfortable in no apparent distress. HEAD: Normocephalic/atraumatic. EYES: Normal reaction of pupils, equal size. Conjunctiva pink, sclera white. NOSE: Clear with pink turbinates. THROAT: No erythema or exudates. NECK: No masses, no JVD, no thyroid enlargement, no adenopathy. CHEST: No chest wall deformity. Symmetrical expansion. LUNGS: Equal air entry with no crackles, wheeze, rhonchi or dullness. CVS: Regular rate and rhythm, normal S1 and S2, no gallops, no murmurs, no rubs ABDOMEN: Soft, nontender. No hepatosplenomegaly, normal bowel sounds, no guarding or rigidity. EXTREMITIES: No clubbing, no edema, no cyanosis, 2+ pulses and upper and lower extremities. MUSCULOSKELETAL: Muscle strength and tone normal. SPINE: No scoliosis or deformity SKIN: No rashes CENTRAL NERVOUS SYSTEM: Alert and oriented -3. No focal deficits, tone is normal in all 4 extremities. PSYCHIATRIC: Alert and oriented -3. Appropriate affect. Intact judgment and insight. - Labs CBC & Chem 7: 08/08/20 19:40 08/08/20 19:40 Labs: Abnormal Lab Results - Last 24 Hours (Table) 08/09/20 08/09/20 08/10/20 Range/Units 17:40 20:45 06:33 POC Glucose (mg/dL) 133 H 134 H 127 H (75-99) mg/dL 08/10/20 Range/Units 12:27 POC Glucose (mg/dL) 100 H (75-99) mg/dL Assessment and Plan Plan: Assessment: 1 acute exacerbation of chronic COPD with secondary shortness of breath 2 Severe COPD, MZ genotype/Alpha-1 antitrypsin deficiency., Serum levels of 84.3 mg/dL and the patient will be started on Prolastin replacement therapy. The patient has severe obstructive airway disease with a baseline FEV1 of 42% of predicted 3 Family history of alpha-1 antitrypsin deficiency. 4 Chronic hypoxic respiratory failure, maintained on oxygen at 3 L per minute nasal cannula. 5 History of psoriasis 6 Seasonal ALLERGIC rhinitis Plan: Continue current medical treatment, nebulized bronchodilators, continue empiric antibiotics, patient is improving, no acute events overnight, she could be considered for discharge home today or in the next 24 hours. She follows with Dr[address] Valencia in the office, she will need outpatient follow-up appointment with him in 7-10 days I performed a history & physical examination of the patient and discussed their management with my nurse practitioner, Suyapa Zazueta. I reviewed the nurse practitioner's note and agree with the documented findings and plan of care. Lung sounds are positive for diminished breath sounds. The findings and the impression was discussed with the patient. I attest to the documentation by the nurse practitioner. Time with Patient: Less than 30
--- NOTE | 2020-08-10 13:19 | P.PN ---
Subjective Progress Note Date: 08/10/20 HISTORY OF PRESENT ILLNESS This is a 60-year-old female patient of Dr. Luiz Mclaughlin and Dr. 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 Patient states that she was to start infusion treatments for alpha 1 antitrypsin deficiency tomorrow. This has been ordered through Dr. Mcmillan's office and performed at home. She states she quit smoking in May 2019. Patient gives history of 2 nights ago starting to have increasing shortness of breath with cough and wheezing. She states she used her own neb treatment several times and this did not seem to help. She increased her oxygen which is normally at 2 L up to 3 L nasal cannula. After her reading treatment yesterday evening, she couldn't catch her breath. She denies any known COVID-19 exposure, denies fever or c hills. She denies any chest pain. Patient came into [facility] emergency center for evaluation. She was found to be afebrile, heart rate 106, blood pressure 124/75, pulse ox 94% on oxygen. EKG was a sinus rhythm at a rate of [address] changes. WBC 14 otherwise CBC unremarkable. Electrolytes and renal function normal. Blood sugar 115. Liver function tests were normal. ProBNP 67. Troponin negative. Chest x-ray reveals small pleural effusions and interstitial i nfiltrates of the lung bases unchanged compared to old exam. No heart failure. Patient was started on DuoNeb treatments, Symbicort, and azithromycin and admitted to the [facility] floor and consult with pulmonary medicine. 08/10: Patient is seen today on the pediatric unit. Her breathing status is improved from yesterday. Pulse ox is 91% on 2-1/2 L nasal cannula. She has been afebrile, heart rate 96, blood pressure 116/68. Blood sugars running between 101- 134. She is continued on Solu-Medrol 60 mg IV every 6 hours which will be decreased to 40 mg every 8. Anticipate probable discharge tomorrow. REVIEW OF SYSTEMS Constitutional: No fever, no chills, no night sweats. No weight change. No weakness, reports fatigue. No daytime sleepiness. EENT: No headache. No blurred vision or double vision, no loss of vision. No loss of Hearing, no ringing in the ears, no dizziness. No nasal drainage or congestion. No epistaxis. No sore throat. Lungs: Reports shortness of breath-improving, Reportscough,Reports sputum production. Reports wheezing. Cardiovascular: No chest pain, no lower extremity edema. No palpitations. No paroxysmal nocturnal dyspnea. No orthopnea. No lightheadedness or dizziness. No syncopal episodes. Abdominal: No abdominal pain. No nausea, vomiting. No diarrhea. No constipation. No bloody or tarry stools.. No loss of appetite. Genitourinary: No dysuria, increased frequency, urgency. No urinary retention. Musculoskeletal: No myalgias. No muscle weakness, no gait dysfunction, no frequent falls. Integumentary: No wounds, no lesions. No rash or pruritus. Neurologic: No aphasia. No facial droop. No change in mentation. No head injury. No headache. Psychiatric: No depression. No anxiety. Endocrine: No abnormal blood sugars. PHYSICAL EXAMINATION Gen: This is a 60-year-old female. Patient is sitting in chair in no respiratory distress. HEENT: Head is atraumatic, normocephalic. Pupils equal, round. Sclerae is anicteric. NECK: Supple. No JVD. No lymphadenopathy. No thyromegaly. LUNGS: Bilateral end expiratory wheeze, diminished breath sounds throughout. Mild accessory muscle usage and intercostal retractions. Audible wheezing HEART: Regular rate and rhythm. No murmur. ABDOMEN: Soft. Bowel sounds are present. No masses. No tenderness. EXTREMITIES: No pedal edema. No calf tenderness. Dorsalis pedis +2 bilaterally. NEUROLOGICAL: Patient is awake, alert and oriented x3. Cranial nerves 2 through 12 are grossly intact. ASSESSMENT AND PLAN 1. Acute on chronic hypoxic respiratory failure secondary to COPD exacerbation. Continue on Solu-Medrol decreased to 40 mg IV every 8 hours, continue DuoNeb treatments scheduled 4 times daily and also as needed, Pulmicort 1 mg twice daily, consult with pulmonary medicine. 2. Alpha-1 antitrypsin seen deficiency, managed by Dr. Mcmillan. 3. Gastroesophageal reflux disease. Continue Pepcid. 4. Seasonal ALLERGIES. Continue Flonase. 5. Remote history of tobacco use and dependence. Patient quit in 2019. 6. Chronic hypoxic respiratory failure on home O2 at 2 L nasal cannula. 7. DVT prophylaxis. Heparin subcu. Discharge plan: home tomorrow. Impression and plan of care have been directed as dictated by the signing physician. Bee Baig nurse practitioner acting as scribe for signing physician. Objective - Vital Signs Vital signs: Vital Signs Temp 98 F 08/10/20 06:40 Pulse 90 08/10/20 06:40 Resp 18 08/10/20 06:40 BP 102/63 08/10/20 06:40 Pulse Ox 92 L 08/10/20 06:40 Intake & Output 08/09/20 08/10/20 08/10/20 18:59 06:59 18:59 Intake Total 300 Balance 300 Intake: Oral 300 Other: Voiding Method Toilet Toilet # Voids 1 1 - Labs CBC & Chem 7: 08/08/20 19:40 08/08/20 19:40 Labs: Abnormal Lab Results - Last 24 Hours (Table) 08/09/20 08/09/20 08/09/20 Range/Units 12:53 17:40 20:45 POC Glucose (mg/dL) 111 H 133 H 134 H (75-99) mg/dL 08/10/20 Range/Units 06:33 POC Glucose (mg/dL) 127 H (75-99) mg/dL
[2020-08-10] MEDS: methylPREDNISolone SOD SUCCI 40 MG/ML 1 ML VIAL IV SCH ×2 (16:52→23:26)
[2020-08-10 18:12] LABS: Glucose,Whole Blood 139 mg/dL (75-99)
[2020-08-10] MEDS: AZITHROMYCIN 500 MG TAB PO SCH (20:55)
[2020-08-10 21:00] LABS: Glucose,Whole Blood 208 mg/dL (75-99)
[2020-08-10] MEDS: FAMOTIDINE 20 MG TAB PO PRN (21:04)
[2020-08-10 23:41] VITALS: RESP 18
[2020-08-11 06:32] LABS: Glucose,Whole Blood 109 mg/dL (75-99)
[2020-08-11] MEDS: INSULIN ASPART (NovoLOG) 100 UNIT/ML VIAL SQ SCH (06:32)
[2020-08-11] MEDS: guaiFENesin-DM 600/30MG 1 EACH TAB.ER.12H PO SCH (07:50)
[2020-08-11] MEDS: methylPREDNISolone SOD SUCCI 40 MG/ML 1 ML VIAL IV SCH (07:50)
[2020-08-11] MEDS: HEPARIN SODIUM,PORCINE 5,000 UNIT/ML 1 ML VIAL SQ SCH (07:50)
[2020-08-11] MEDS: FORMOTEROL FUMARATE 20 MCG/2 ML NEBU INHALATION SCH (08:01)
[2020-08-11] MEDS: BUDESONIDE 1 MG/2 ML NEBU INHALATION SCH (08:01)
[2020-08-11] MEDS: IPRATROPIUM-ALBUTEROL 3 ML NEB INHALATION SCH ×3 (08:02→15:49)
--- NOTE | 2020-08-11 08:07 | P.DS ---
Providers Date of admission: 08/08/20 20:35 Expected date of discharge: 08/11/20 Attending physician: Baljit Garnica Consults: 08/08/20 20:34 Consult Physician Routine Consulting Provider: Daniel Mcmillan Consult Reason/Comments: copd exacerbation Do you want consulting provider notified?: Yes Primary care physician: Luiz Rojasmnwilton [facility] Course: HISTORY OF PRESENT ILLNESS This is a 60-year-old female patient of Dr. Luiz Mclaughlin and Dr. 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 Patient states that she was to start infusion treatments for alpha 1 antitrypsin deficiency tomorrow. This has been ordered through Dr. Mcmillan's office and performed at home. She states she quit smoking in May 2019. Patient gives history of 2 nights ago starting to have increasing shortness of breath with cough and wheezing. She states she used her own neb treatment several times and this did not seem to help. She increased her oxygen which is normally at 2 L up to 3 L nasal cannula. After her reading treatment yesterday evening, she couldn't catc h her breath. She denies any known COVID-19 exposure, denies fever or chills. She denies any chest pain. Patient came into [facility] emergency center for evaluation. She was found to be afebrile, heart rate 106, blood pressure 124/75, pulse ox 94% on oxygen. EKG was a sinus rhythm at a rate of [address] changes. WBC 14 otherwise CBC unremarkable. Electrolytes and renal function normal. Blood sugar 115. Liver function tests were normal. ProBNP 67. Troponin negative. Chest x-ray reveals small pleural effusions and interstitial infiltrates of the lung bases unchanged compared to old exam. No heart failure. Patient was started on DuoNeb treatments, Symbicort, and azithromycin and admitted to the [facility] floor and consult with pulmonary medicine. 08/10: Patient is seen today on the pediatric unit. Her breathing status is improved from yesterday. Pulse ox is 91% on 2-1/2 L nasal cannula. She has been afebrile, heart rate 96, blood pressure 116/68. Blood sugars running between 101- 134. She is continued on Solu-Medrol 60 mg IV every 6 hours which will be decreased to 40 mg every 8. Anticipate probable discharge tomorrow. 08/11: Patient's breathing status continues to improve slowly. She is now close to her baseline. She denies having any fever or chills. No lightheadedness or dizziness. She has been afebrile, heart rate 86, blood pressure 103/67, pulse ox 92% on 2 L nasal cannula. Blood sugars are running between 109 and 208. Patient will be discharged home today in stable condition. ASSESSMENT AND PLAN 1. Acute on chronic hypoxic respiratory failure secondary to COPD exacerbation. 2. Alpha-1 antitrypsin seen deficiency, managed by Dr. Mcmillan. 3. Gastroesophageal reflux disease. 4. Seasonal ALLERGIES. 5. Remote history of tobacco use and dependence. Patient quit in 2018. 6. Chronic hypoxic respiratory failure on home O2 at 2 L nasal cannula. Discharge plan: home Impression and plan of care have been directed as dictated by the signing physician. Bee Baig nurse practitioner acting as scribe for signing physician. Patient Condition at Discharge: Good Plan - Discharge Summary Discharge Rx Participant: No New Discharge Prescriptions: New predniSONE 0 mg PO DIRECTED #30 tab Azithromycin [Zithromax] 500 mg PO HS #5 tab guaiFENesin-DM 600/30MG [Mucinex Dm] 2 each PO Q12HR #60 tab.er.12h Tiotropium [place] [Spiriva] 1 cap INHALATION DAILY 30 Days #1 device Continue Ipratropium-Albuterol Nebulize [Duoneb 0.5 mg-3 mg/3 ml Soln] 3 ml INHALATION RT-QID PRN PRN Reason: Shortness Of Breath Fluticasone Nasal [place] [Flonase Nasal Arab] 1 spray EA NOSTRIL DAILY PRN PRN Reason: Allergy Symptoms Budesonide-Formot 160-4.5 Mcg [Symbicort 160-4.5 Mcg Inhaler] 2 puff INHALATION RT-BID #1 puff Albuterol Sulfate [Albuterol Sulfate Hfa] 1 puff PO RT-Q4H PRN PRN Reason: Shortness Of Breath Changed Famotidine [Pepcid] 20 mg PO DAILY PRN #30 tab PRN Reason: Gi Upset Discharge Medication List Fluticasone Nasal [place] [Flonase Nasal [place]] 1 spray EA NOSTRIL DAILY PRN 06/18/20 [History] Ipratropium-Albuterol Nebulize [Duoneb 0.5 mg-3 mg/3 ml Soln] 3 ml INHALATION RT-QID PRN 06/18/20 [History] Budesonide-Formot 160-4.5 Mcg [Symbicort 160-4.5 Mcg Inhaler] 2 puff INHALATION RT-BID #1 puff 06/20/20 [Rx] Albuterol Sulfate [Albuterol Sulfate Hfa] 1 puff PO RT-Q4H PRN 08/08/20 [History] Azithromycin [Zithromax] 500 mg PO HS #5 tab 08/11/20 [Rx] Famotidine [Pepcid] 20 mg PO DAILY PRN #30 tab 08/11/20 [Rx] Tiotropium [place] [Spiriva] 1 cap INHALATION DAILY 30 Days #1 device 08/11/20 [Rx] guaiFENesin-DM 600/30MG [Mucinex Dm] 2 each PO Q12HR #60 tab.er.12h 08/11/20 [Rx] predniSONE 0 mg PO DIRECTED #30 tab 08/11/20 [Rx] Follow up Appointment(s)/Referral(s): Daniel Mcmillan MD [STAFF PHYSICIAN] - 1 Week (Aug @ 1:15PM) Luiz Mclaughlin MD [Primary Care Provider] - 1 Week Patient Instructions/Handouts: COPD (Chronic Obstructive Pulmonary Disease) (DC) Activity/Diet/Wound Care/Special Instructions: Use humidified oxygen at home. May use humidifer in bedroom at night for c omfort. May also take short breaks from oxygen (1 to 2 hours) if pox numbers are stable >91%. Recheck on 08-18-2020, sooner if problems or concern...worsening respiratory symptoms, increased work of breathing, fever, chills, worsening cough, any problems or concerns. Discharge Disposition: HOME SELF-CARE
[2020-08-11 12:30] LABS: Glucose,Whole Blood 115 mg/dL (75-99)
--- NOTE | 2020-08-11 14:18 | P.PN ---
Subjective Progress Note Date: 08/11/20 08/11/2020, the patient is feeling well. No specific complaints. No chest pain. Shortness of breath and the frozen the patient is ready to go home. She is going to see our office on outpatient basis as the patient will be started on Prolastin replacement therapy. She'll be completing a prednisone burst taper. Her discharge medication will include a prednisone burst taper, Symbicort and I'm going to add Spiriva in addition to her albuterol HFA and albuterol nebulized treatments with albuterolHFA that needs to be used on an as-needed basis. Objective - Vital Signs Vital signs: Vital Signs Temp 98.1 F 08/11/20 08:32 Pulse 92 08/11/20 11:25 Resp 18 08/11/20 08:32 BP 103/67 08/11/20 08:32 Pulse Ox 92 L 08/11/20 08:32 Intake & Output 08/10/20 08/11/20 08/11/20 18:59 06:59 18:59 Intake Total 1100 500 Balance 1100 500 Intake: Oral 1100 500 Other: Voiding Method Toilet Toilet Toilet # Voids 2 1 - Exam GENERAL EXAM: Alert, pleasant 59-year-old female patient, on 3 L nasal cannula, comfortable in no apparent distress. HEAD: Normocephalic. EYES: Normal reaction of pupils, equal size. NOSE: Clear with pink turbinates. THROAT: No erythema or exudates. NECK: No masses, no JVD. CHEST: No chest wall deformity. LUNGS: Equal air entry with bilateral end expiratory wheeze, diminished. CVS: S1 and S2 normal with no audible murmur, regular rhythm. ABDOMEN: No hepatosplenomegaly, normal bowel sounds, no guarding or rigidity. SPINE: No scoliosis or deformity SKIN: Areas of psoriasis CENTRAL NERVOUS SYSTEM: No focal deficits, tone is normal in all 4 extremities. EXTREMITIES: There is no peripheral edema. No clubbing, no cyanosis. P eripheral pulses are intact. - Labs CBC & Chem 7: 08/08/20 19:40 08/08/20 19:40 Labs: Abnormal Lab Results - Last 24 Hours (Table) 08/10/20 08/10/20 08/11/20 Range/Units 18:11 20:58 06:31 POC Glucose (mg/dL) 139 H 208 H 109 H (75-99) mg/dL 08/11/20 Range/Units 12:28 POC Glucose (mg/dL) 115 H (75-99) mg/dL Assessment and Plan Plan: 1 acute exacerbation of chronic COPD with secondary shortness of breath, improving 2 Severe COPD, MZ genotype/Alpha-1 antitrypsin deficiency., Serum levels of 84.3 mg/dL and the patient will be started on Prolastin replacement therapy. The patient has severe obstructive airway disease with a baseline FEV1 of 42% of predicted 3 Family history of alpha-1 antitrypsin deficiency. 4 Chronic hypoxic respiratory failure, maintained on oxygen at 3 L per minute nasal cannula. 5 History of psoriasis 6 Seasonal ALLERGIC rhinitis Plan DuoNeb nebulized treatment [id number] Prednisone burst taper starting with 40 mg The patient is on Symbicort and will add Spiriva in combination of Symbicort to be used on outpatient basis Outpatient Prolastin replacement therapy Action therapy at 3 L per minute nasal cannula Smoking cessation counseling Familial counseling regarding alpha-1 anti-trypsin deficiency Operation follow through our office
[2020-08-11 16:45] VITALS: BP 118/63; PULSE 85; TEMP 97.4
== END 2020-08-11 17:00 | disposition home or self-care (01) | DRG 190 ==
LOC: EC 19:11 → 4SSUR 20:35 → 6PED 08-09 10:51
PROVIDERS: ADMIT Internal Medicine Geriatric Medicine; ATTEND Internal Medicine Geriatric Medicine
DX: J44.1 Chronic obstructive pulmonary disease with (acute) exacerbation (principal); J96.21 Acute and chronic respiratory failure with hypoxia; D72.829 Elevated white blood cell count, unspecified; E88.01 Alpha-1-antitrypsin deficiency; Z99.81 Dependence on supplemental oxygen; J30.2 Other seasonal allergic rhinitis; K21.9 Gastro-esophageal reflux disease without esophagitis; L40.9 Psoriasis, unspecified; T38.0X5A Adverse effect of glucocorticoids and synthetic analogues, initial encounter; Z79.51 Long term (current) use of inhaled steroids; Z79.52 Long term (current) use of systemic steroids; Z79.899 Other long term (current) drug therapy; Z87.891 Personal history of nicotine dependence; Z88.0 Allergy status to penicillin; Z82.5 Family history of asthma and other chronic lower respiratory diseases; Z82.79 Family history of other congenital malformations, deformations and chromosomal abnormalities; Z84.89 Family history of other specified conditions
CPT/HCPCS: 36415; 71046; 80053; 83880; 84484; 85025; 85610; 85730; 93005; 94640; 94760; 96361; 96374; 99285

== ENCOUNTER 2020-10-16 11:46 | Emergency (ER) | payer OTHER ==
[2020-10-16] MEDS ORDERED: ALBUTEROL NEBULIZED 2.5 MG/3 ML INHALATION STA ×2 (12:25→14:04)
[2020-10-16] MEDS ORDERED: IPRATROPIUM 0.5 MG/2.5 ML NEBU INHALATION STA ×2 (12:25→14:04)
[2020-10-16] MEDS ORDERED: DEXAMETHASONE SOD PHOSPHATE 10 MG/ML 1 ML VIAL IV STA (12:26)
--- NOTE | 2020-10-16 12:28 | ED ---
General Adult HPI - General Chief complaint: Shortness of Breath Stated complaint: ALEXANDER Time Seen by Provider: 10/16/20 12:05 Source: patient Mode of arrival: wheelchair Limitations: no limitations - History of Present Illness Initial comments: Dictation was produced using [employer] dictation software. please excuse any grammatical, word or spelling errors. This patient was cared for during a federal and state declared state of emergency secondary to Covid 19 Chief Complaint: 60-year-old female past medical history of COPD and alpha 1 antitrypsin deficiency presents with dyspnea. History of Present Illness: It is a 60-year-old female she has history of COPD, alpha-1 antitrypsin deficiency. Patient's [employer] is Dr. Mcmillan. Patient has had frequent exacerbations of COPD over the last year. Patient's urine emergency department for persistent dyspnea not improved with her home medications. Patient states that over the last couple days she's been having worsening dyspnea and wheezing. She has no pain complaints. Denies any constitutional symptoms. Denies any exposures to anybody with obvious Covid symptoms. She has a home healthcare nurse that checks on her regularly and provides her with her alpha-1 antitrypsin deficiency fusions. She does report having yellow thick phlegm and she wears home oxygen set at 2 L nasal cannula. She has no history of DVT or PE. No leg symptoms The ROS documented in this emergency department record has been reviewed and confirmed by me. Those systems with pertinent positive or negative responses have been documented in the HPI. All other systems are other negative and/or noncontributory. PHYSICAL EXAM: General Impression: Alert and oriented x3, dyspneic with retractions HEENT: Normocephalic atraumatic, extra-ocular movements intact, pupils equal and reactive to light bilaterally, mucous membranes moist. Cardiovascular: Heart regular rate and rhythm Chest: 3 word sentences, mild intercostal retractions, diffuse end expiratory lung wheezing Abdomen: abdomen soft, non-tender, non-distended, no organomegaly Musculoskeletal: Pulses present and equal in all extremities, no peripheral edema Motor: no focal deficits noted Neurological: CN II-XII grossly intact, no focal motor or sensory deficits noted Skin: Intact with no visualized rashes Psych: Normal affect and mood ED course: 60-year-old female presents today with clinical presentation consistent with COPD exacerbation. Vital signs upon arrival are within acceptable limits. Patient does appear dyspneic at bedside. EKG interpretation: Ventricular rate 107, sinus tachycardia, MO interval 120, QRS 74, QTc 440. No MO prolongation, no QTC prolongation, no ST or T-wave changes noted. EKG compared to 08/08/2020 showing no changes. Overall, this EKG is unremarkable Laboratory evaluation obtained. CBC, coag panel, metabolic panel is unremarkable. Coronal virus is negative. Chest x-ray is not acute. Patient reevaluated after initial breathing treatment per she still appeared to be dyspneic. Discussed the patient that I would prefer to keep patient in for observation for continued breathing treatments and pulmonology consultation. Patient declined because she does not want to take the risk of mike Covid in the hospital if she was admitted. She said would prefer to be discharge with strict return precautions. Patient has refills for her nebulizer at home at her local pharmacy. I will send patient prescription for prednisone. She is advised to follow-up with a [employer] mixing [employer]. She is given a breathing treatment prior to being discharged. She understands that her breathing symptoms get worse. In the event that she is told to seek medical attention immediately. - Related Data Home Medications Medication Instructions Recorded Confirmed Fluticasone Nasal [place] [Flonase 1 spray EA NOSTRIL DAILY PRN 06/18/20 08/08/20 Nasal [place]] Ipratropium-Albuterol Nebulize 3 ml INHALATION RT-QID PRN 06/18/20 08/08/20 [Duoneb 0.5 mg-3 mg/3 ml Soln] Albuterol Sulfate [Albuterol 1 puff PO RT-Q4H PRN 08/08/20 08/08/20 Sulfate Hfa] Previous Rx's Medication Instructions Recorded Budesonide-Formot 160-4.5 Mcg 2 puff INHALATION RT-BID #1 puff 06/20/20 [Symbicort 160-4.5 Mcg Inhaler] Azithromycin [Zithromax] 500 mg PO HS #5 tab 08/11/20 Famotidine [Pepcid] 20 mg PO DAILY PRN #30 tab 08/11/20 Tiotropium [place] [Spiriva] 1 cap INHALATION DAILY 30 Days #1 08/11/20 device guaiFENesin-DM 600/30MG [Mucinex 2 each PO Q12HR #60 tab.er.12h 08/11/20 Dm] predniSONE 0 mg PO DIRECTED #30 tab 08/11/20 predniSONE 50 mg PO DAILY 4 Days #4 tab 10/16/20 Allergies Allergy/AdvReac Type Severity Reaction Status Date / Time Penicillins Allergy Unknown Verified 10/16/20 11:48 Review of Systems ROS Statement: Those systems with pertinent positive or pertinent negative responses have been documented in the HPI. ROS Other: All systems not noted in ROS Statement are negative. Past Medical History Past Medical History: COPD Additional Past Medical History / Comment(s): PSORIASIS, alpha-1 antitrypsin deficiency MZ History of Any Multi-Drug Resistant Organisms: None Reported Past Surgical History: Section Past Anesthesia/Blood Transfusion Reactions: No Reported Reaction Past Psychological History: No Psychological Hx Reported Smoking Status: Former smoker Past Alcohol Use History: Occasional Past Drug Use History: None Reported - Past Family History Father Family Medical History: COPD Additional Family Medical History / Comment(s): Her father at age 64 of emphysema. Brother(s) Family Medical History: COPD Additional Family Medical History / Comment(s): Her brother at age 64 of emphysema. He was positive for alpha-1 antitrypsin deficiency, ZZ. General Exam Limitations: no limitations Course Vital Signs 10/16/20 10/16/20 10/16/20 11:48 12:49 13:04 Temperature 98.1 F Pulse Rate 119 H 106 H 103 H Respiratory 18 22 22 Rate Blood Pressure 147/77 131/79 O2 Sat by Pulse 95 95 Oximetry 10/16/20 10/16/20 13:15 14:13 Temperature Pulse Rate 110 H 111 H Respiratory 18 18 Rate Blood Pressure O2 Sat by Pulse Oximetry Medical Decision Making - Lab Data Result diagrams: 10/16/20 12:43 10/16/20 12:43 Lab Results 10/16/20 10/16/20 10/16/20 Range/Units 12:43 12:43 12:43 WBC 11.8 H (3.8-10.6) k/uL RBC 5.05 (3.80-5.40) m/uL Hgb 15.3 (11.4-16.0) gm/dL Hct 45.4 (34.0-46.0) % MCV 89.9 (80.0-100.0) fL MCH 30.3 (25.0-35.0) pg MCHC 33.7 (31.0-37.0) g/dL RDW 13.0 (11.5-15.5) % Plt Count 354 (150-450) k/uL MPV 7.3 Neutrophils % 67 % Lymphocytes % 19 % Monocytes % 7 % Eosinophils % 4 % Basophils % 1 % Neutrophils # 7.9 H (1.3-7.7) k/uL Lymphocytes # 2.2 (1.0-4.8) k/uL Monocytes # 0.9 (0-1.0) k/uL Eosinophils # 0.5 (0-0.7) k/uL Basophils # 0.1 (0-0.2) k/uL PT 9.9 (9.0-12.0) sec INR 0.9 (<1.2) APTT 25.1 (22.0-30.0) sec Sodium 138 (137-145) mmol/L Potassium 4.4 (3.5-5.1) mmol/L Chloride 101 (98-107) mmol/L Carbon Dioxide 29 (22-30) mmol/L Anion Gap 8 mmol/L BUN 11 (7-17) mg/dL Creatinine 0.65 (0.52-1.04) mg/dL Est GFR (CKD-EPI)AfAm >90 (>60 ml/min/1.73 sqM) Est GFR (CKD-EPI)NonAf >90 (>60 ml/min/1.73 sqM) Glucose 108 H (74-99) mg/dL Calcium 9.7 (8.4-10.2) mg/dL Magnesium 2.3 (1.6-2.3) mg/dL Total Bilirubin 0.6 (0.2-1.3) mg/dL AST 22 (14-36) U/L ALT 18 (4-34) U/L Alkaline Phosphatase 86 (38-126) U/L Total Protein 8.3 H (6.3-8.2) g/dL Albumin 4.8 (3.5-5.0) g/dL Coronavirus (PCR) (Not Detectd) 10/16/20 Range/Units 12:43 WBC (3.8-10.6) k/uL RBC (3.80-5.40) m/uL Hgb (11.4-16.0) gm/dL Hct (34.0-46.0) % MCV (80.0-100.0) fL MCH (25.0-35.0) pg MCHC (31.0-37.0) g/dL RDW (11.5-15.5) % Plt Count (150-450) k/uL MPV Neutrophils % % Lymphocytes % % Monocytes % % Eosinophils % % Basophils % % Neutrophils # (1.3-7.7) k/uL Lymphocytes # (1.0-4.8) k/uL Monocytes # (0-1.0) k/uL Eosinophils # (0-0.7) k/uL Basophils # (0-0.2) k/uL PT (9.0-12.0) sec INR (<1.2) APTT (22.0-30.0) sec Sodium (137-145) mmol/L Potassium (3.5-5.1) mmol/L Chloride (98-107) mmol/L Carbon Dioxide (22-30) mmol/L Anion Gap mmol/L BUN (7-17) mg/dL Creatinine (0.52-1.04) mg/dL Est GFR (CKD-EPI)AfAm (>60 ml/min/1.73 sqM) Est GFR (CKD-EPI)NonAf (>60 ml/min/1.73 sqM) Glucose (74-99) mg/dL Calcium (8.4-10.2) mg/dL Magnesium (1.6-2.3) mg/dL Total Bilirubin (0.2-1.3) mg/dL AST (14-36) U/L ALT (4-34) U/L Alkaline Phosphatase (38-126) U/L Total Protein (6.3-8.2) g/dL Albumin (3.5-5.0) g/dL Coronavirus (PCR) Not Detected (Not Detectd) Disposition Clinical Impression: COPD exacerbation Disposition: HOME SELF-CARE Condition: Good Instructions (If sedation given, give patient instructions): COPD (Chronic Obstructive Pulmonary Disease) (ED) Prescriptions: predniSONE 50 mg PO DAILY 4 Days #4 tab Is patient prescribed a controlled substance at d/c from ED?: No Referrals: Daniel Mcmillan MD [STAFF PHYSICIAN] - 1-2 days Time of Disposition: 14:40
[2020-10-16 12:53] LABS: Basophils # (A) 0.1 k/uL (0-0.2); Basophils % (A) 1 %; Eosinophils # (A) 0.5 k/uL (0-0.7); Eosinophils % (A) 4 %; HCT 45.4 % (34.0-46.0); HGB 15.3 gm/dL (11.4-16.0); Lymphocytes # (A) 2.2 k/uL (1.0-4.8); Lymphocytes % (A) 19 %; MCH 30.3 pg (25.0-35.0); MCHC 33.7 g/dL (31.0-37.0); MCV 89.9 fL (80.0-100.0); Mean Platelet Volume 7.3; Monocytes # (A) 0.9 k/uL (0-1.0); Monocytes % (A) 7 %; Neutrophils # (A) 7.9 k/uL (1.3-7.7); Neutrophils % (A) 67 %; Platelet Count 354 k/uL (150-450); RBC 5.05 m/uL (3.80-5.40); WBC 11.8 k/uL (3.8-10.6)
[2020-10-16 13:02] LABS: ALT 18 U/L (4-34); AST 22 U/L (14-36); African American GFR (CKD) >90 (>60 ml/min/1.73 sqM); Albumin 4.8 g/dL (3.5-5.0); Alkaline Phosphatase 86 U/L (38-126); Anion Gap 8 mmol/L; Blood Urea Nitrogen 11 mg/dL (7-17); Calcium 9.7 mg/dL (8.4-10.2); Carbon Dioxide 29 mmol/L (22-30); Chloride 101 mmol/L (98-107); Glucose 108 mg/dL (74-99); INR 0.9 (<1.2); Magnesium 2.3 mg/dL (1.6-2.3); Non-African American GFR(CKD) >90 (>60 ml/min/1.73 sqM); Partial Thromboplastin Time 25.1 sec (22.0-30.0); Potassium 4.4 mmol/L (3.5-5.1); Prothrombin Time 9.9 sec (9.0-12.0); Sodium 138 mmol/L (137-145); Total Bilirubin 0.6 mg/dL (0.2-1.3); Total Protein 8.3 g/dL (6.3-8.2)
--- NOTE | 2020-10-16 13:45 | XR ---
EXAMINATION TYPE: XR chest 1V portable DATE OF EXAM: 10/16/2020 COMPARISON: Chest x-ray August 08, 2020 HISTORY: History of COPD with shortness of breath TECHNIQUE: Single AP portable frontal view of the chest is obtained. FINDINGS: There is chronic parenchymal change without suspicious focal air space opacity, pleural ef fusion, or pneumothorax seen. The cardiac silhouette size remain within normal limits. The osseous structures are demineralized. IMPRESSION: Chronic changes without acute pulmonary process.
[2020-10-16 14:57] VITALS: BP 138/82; PULSE 111; RESP 20; TEMP 98.1
== END 2020-10-16 15:09 | disposition home or self-care (01) ==
LOC: EC 11:46
DX: J44.1 Chronic obstructive pulmonary disease with (acute) exacerbation (principal); R00.0 Tachycardia, unspecified; Z20.828 Contact with and (suspected) exposure to other viral communicable diseases; Z88.0 Allergy status to penicillin; Z87.891 Personal history of nicotine dependence
CPT/HCPCS: 36415; 94640 ×2; 93005; 80053; 83735; 85025; 85610; 85730; 87635; 71045; 99285; 96374; J1100

== ENCOUNTER 2021-03-01 11:41 | Inpatient (IN) | payer OTHER ==
--- NOTE | 2021-03-01 12:33 | XR ---
EXAMINATION TYPE: XR chest 2V DATE OF EXAM: 03/01/2021 COMPARISON: 10/16/2020 HISTORY: Difficulty breathing TECHNIQUE: Frontal and lateral views of the chest are obtained. FINDINGS: Heart size is within normal limits. Hazy interstitial densities at the mid to lower lungs. No pleural effusion, focal consolidation or pneumothorax. Hyperinflation lungs and flattening of the diaphragms suggestive of COPD. Osteopenia and degenerative changes of the thoracic spine. IMPRESSION: 1. Mild hazy interstitial densities at the midlungs and lower lungs may represent chronic changes. CO PD.
[2021-03-01] MEDS ORDERED: ALBUTEROL NEBULIZED 2.5 MG/3 ML INHALATION STA (13:17)
[2021-03-01] MEDS ORDERED: methylPREDNISolone SOD SUCCI 125 MG/2 ML VIAL IV STA (13:17)
[2021-03-01] MEDS ORDERED: IPRATROPIUM 0.5 MG/2.5 ML NEBU INHALATION STA (13:17)
--- NOTE | 2021-03-01 13:22 | ED ---
General Adult HPI - General Chief complaint: Shortness of Breath Stated complaint: possible CHF Time Seen by Provider: 03/01/21 11:55 Source: patient, family, RN notes reviewed, old records reviewed Mode of arrival: wheelchair Limitations: no limitations - History of Present Illness Initial comments: This is a 60-year-old female with past medical history significant for COPD. Patient states she's been having difficulty breathing which is getting prog ressively worse over the last few days. Patient states she saw chief operator synthesis chest today and he told her to increase her steroid as well as her breathing treatment and she states that has not helped and the fact she is worse today. Patient denies any pain. Patient denies any chest pain palpitations. Patient has any fever or chills. Patient denies any abdominal pain patient denies nausea vomiting diarrhea. Patient denies any lightheadedness or dizziness. Patient denies any swelling to the legs or calf tenderness. - Related Data Home Medications Medication Instructions Recorded Confirmed Ipratropium-Albuterol Nebulize 3 ml INHALATION RT-QID PRN 06/18/20 03/01/21 [Duoneb 0.5 mg-3 mg/3 ml Soln] Albuterol Sulfate [Albuterol 2 puff PO RT-QID PRN 08/08/20 03/01/21 Sulfate Hfa] Depo-Medrol 80mg/Ml 80 mg INJ ONCE 03/01/21 03/01/21 Multivit-Min/FA/Lycopen/Lutein 1 tab PO DAILY 03/01/21 03/01/21 [Centrum Silver Tablet] guaiFENesin-DM 600/30MG [Mucinex 1 tab PO Q12HR 03/01/21 03/01/21 Dm] predniSONE 5 mg PO DAILY 03/01/21 03/01/21 Previous Rx's Medication Instructions Recorded Budesonide-Formot 160-4.5 Mcg 2 puff INHALATION RT-BID #1 puff 06/20/20 [Symbicort 160-4.5 Mcg Inhaler] Tiotropium [place] [Spiriva] 1 cap INHALATION DAILY 30 Days #1 08/11/20 device Allergies Allergy/AdvReac Type Severity Reaction Status Date / Time Penicillins Allergy Unknown Verified 03/01/21 13:43 Review of Systems ROS Statement: Those systems with pertinent positive or pertinent negative responses have been documented in the HPI. ROS Other: All systems not noted in ROS Statement are negative. Past Medical History Past Medical History: COPD Additional Past Medical History / Comment(s): PSORIASIS, alpha-1 antitrypsin deficiency MZ, COVID tracey and tracey vaccine 01/23/21. History of Any Multi-Drug Resistant Organisms: None Reported Past Surgical History: Section Past Anesthesia/Blood Transfusion Reactions: No Reported Reaction Past Psychological History: No Psychological Hx Reported Smoking Status: Former smoker Past Alcohol Use History: Occasional Past Drug Use History: None Reported - Past Family History Father Family Medical History: COPD Additional Family Medical History / Comment(s): Her father at age 64 of emphysema. Brother(s) Family Medical History: COPD Additional Family Medical History / Comment(s): Her brother at age 64 of emphysema. He was positive for alpha-1 antitrypsin deficiency, ZZ. General Exam - General Exam Comments Initial Comments: GENERAL: Patient is well-developed and well-nourished. Patient is nontoxic and well- hydrated and is in moderate distress. ENT: Neck is soft and supple. No significant lymphadenopathy is noted. Oropharynx is clear. Moist mucous membranes. Neck has full range of motion without eliciting any pain. EYES: The sclera were anicteric and conjunctiva were pink and moist. Extraocular movements were intact and pupils were equal round and reactive to light. Eyelids were unremarkable. PULMONARY: Patient is very diminished breath sounds and diffuse expiratory wheezing. CARDIOVASCULAR: There is a regular rate and rhythm without any murmurs gallops or rubs. ABDOMEN: Soft and nontender with normal bowel sounds. No palpable organomegaly was note d. There is no palpable pulsatile mass. SKIN: Skin is clear with no lesions or rashes and otherwise unremarkable. NEUROLOGIC: Patient is alert and oriented x3. Cranial nerves II through XII are grossly intact. Motor and sensory are also intact. Normal speech, volume and content. Symmetrical smile. MUSCULOSKELETAL: Normal extremities with adequate strength and full range of motion. No lower extremity swelling or edema. No calf tenderness. LYMPHATICS: No significant lymphadenopathy is noted PSYCHIATRIC: Normal psychiatric evaluation. Limitations: no limitations Course Vital Signs 03/01/21 03/01/21 03/01/21 11:55 13:10 13:50 Temperature 97.8 F Pulse Rate 99 104 H 102 H Respiratory 20 24 Rate Blood Pressure 140/72 140/95 O2 Sat by Pulse 95 96 Oximetry 03/01/21 03/01/21 14:17 15:28 Temperature Pulse Rate 112 H 105 H Respiratory 18 Rate Blood Pressure 129/81 O2 Sat by Pulse 94 L Oximetry Medical Decision Making - Medical Decision Making EKG shows sinus tachycardia at 104 bpm TN interval 140 QRS is 74 QT interval 328 QTC is 431 per patient's EKG shows no ST segment elevation or depression. Patient received 3 breathing treatments in the emergency department and steroids. Chest x-ray shows no acute abnormality. I spoke with Dr. Edwards she agreed to admit the patient admitted the patient wrote admitting orders. I continue the albuterol treatments and steroids on the floor. - Lab Data Result diagrams: 03/01/21 13:09 03/01/21 13:09 Lab Results 03/01/21 03/01/21 03/01/21 Range/Units 13:09 13:09 13:09 WBC 16.2 H (3.8-10.6) k/uL RBC 4.59 (3.80-5.40) m/uL Hgb 14.1 (11.4-16.0) gm/dL Hct 41.9 (34.0-46.0) % MCV 91.2 (80.0-100.0) fL MCH 30.8 (25.0-35.0) pg MCHC 33.7 (31.0-37.0) g/dL RDW 12.9 (11.5-15.5) % Plt Count (150-450) k/uL MPV 12.9 Neutrophils % 82 % Lymphocytes % 10 % Monocytes % 5 % Eosinophils % 3 % Basophils % 1 % Neutrophils # 13.3 H (1.3-7.7) k/uL Lymphocytes # 1.6 (1.0-4.8) k/uL Monocytes # 0.8 (0-1.0) k/uL Eosinophils # 0.4 (0-0.7) k/uL Basophils # 0.1 (0-0.2) k/uL Manual Slide Review Performed PT 10.2 (9.0-12.0) sec INR 0.9 (<1.2) APTT 26.2 (22.0-30.0) sec Sodium 140 (137-145) mmol/L Potassium 4.4 (3.5-5.1) mmol/L Chloride 100 (98-107) mmol/L Carbon Dioxide 32 H (22-30) mmol/L Anion Gap 8 mmol/L BUN 13 (7-17) mg/dL Creatinine 0.68 (0.52-1.04) mg/dL Est GFR (CKD-EPI)AfAm >90 (>60 ml/min/1.73 sqM) Est GFR (CKD-EPI)NonAf >90 (>60 ml/min/1.73 sqM) Glucose 112 H (74-99) mg/dL Plasma Lactic Acid Sergey (0.7-2.0) mmol/L Calcium 9.7 (8.4-10.2) mg/dL Magnesium (1.6-2.3) mg/dL Total Bilirubin 0.6 (0.2-1.3) mg/dL AST 20 (14-36) U/L ALT 14 (4-34) U/L Alkaline Phosphatase 100 (38-126) U/L Troponin I (0.000-0.034) ng/mL NT-Pro-B Natriuret Pep pg/mL Total Protein 7.8 (6.3-8.2) g/dL Albumin 4.6 (3.5-5.0) g/dL 03/01/21 03/01/21 03/01/21 Range/Units 13:09 13:09 13:09 WBC (3.8-10.6) k/uL RBC (3.80-5.40) m/uL Hgb (11.4-16.0) gm/dL Hct (34.0-46.0) % MCV (80.0-100.0) fL MCH (25.0-35.0) pg MCHC (31.0-37.0) g/dL RDW (11.5-15.5) % Plt Count (150-450) k/uL MPV Neutrophils % % Lymphocytes % % Monocytes % % Eosinophils % % Basophils % % Neutrophils # (1.3-7.7) k/uL Lymphocytes # (1.0-4.8) k/uL Monocytes # (0-1.0) k/uL Eosinophils # (0-0.7) k/uL Basophils # (0-0.2) k/uL Manual Slide Review PT (9.0-12.0) sec INR (<1.2) APTT (22.0-30.0) sec Sodium (137-145) mmol/L Potassium (3.5-5.1) mmol/L Chloride (98-107) mmol/L Carbon Dioxide (22-30) mmol/L Anion Gap mmol/L BUN (7-17) mg/dL Creatinine (0.52-1.04) mg/dL Est GFR (CKD-EPI)AfAm (>60 ml/min/1.73 sqM) Est GFR (CKD-EPI)NonAf (>60 ml/min/1.73 sqM) Glucose (74-99) mg/dL Plasma Lactic Acid Sergey 1.0 (0.7-2.0) mmol/L Calcium (8.4-10.2) mg/dL Magnesium (1.6-2.3) mg/dL Total Bilirubin (0.2-1.3) mg/dL AST (14-36) U/L ALT (4-34) U/L Alkaline Phosphatase (38-126) U/L Troponin I <0.012 (0.000-0.034) ng/mL NT-Pro-B Natriuret Pep 126 pg/mL Total Protein (6.3-8.2) g/dL Albumin (3.5-5.0) g/dL 03/01/21 Range/Units 13:09 WBC (3.8-10.6) k/uL RBC (3.80-5.40) m/uL Hgb (11.4-16.0) gm/dL Hct (34.0-46.0) % MCV (80.0-100.0) fL MCH (25.0-35.0) pg MCHC (31.0-37.0) g/dL RDW (11.5-15.5) % Plt Count (150-450) k/uL MPV Neutrophils % % Lymphocytes % % Monocytes % % Eosinophils % % Basophils % % Neutrophils # (1.3-7.7) k/uL Lymphocytes # (1.0-4.8) k/uL Monocytes # (0-1.0) k/uL Eosinophils # (0-0.7) k/uL Basophils # (0-0.2) k/uL Manual Slide Review PT (9.0-12.0) sec INR (<1.2) APTT (22.0-30.0) sec Sodium (137-145) mmol/L Potassium (3.5-5.1) mmol/L Chloride (98-107) mmol/L Carbon Dioxide (22-30) mmol/L Anion Gap mmol/L BUN (7-17) mg/dL Creatinine (0.52-1.04) mg/dL Est GFR (CKD-EPI)AfAm (>60 ml/min/1.73 sqM) Est GFR (CKD-EPI)NonAf (>60 ml/min/1.73 sqM) Glucose (74-99) mg/dL Plasma Lactic Acid Sergey (0.7-2.0) mmol/L Calcium (8.4-10.2) mg/dL Magnesium 2.3 (1.6-2.3) mg/dL Total Bilirubin (0.2-1.3) mg/dL AST (14-36) U/L ALT (4-34) U/L Alkaline Phosphatase (38-126) U/L Troponin I (0.000-0.034) ng/mL NT-Pro-B Natriuret Pep pg/mL Total Protein (6.3-8.2) g/dL Albumin (3.5-5.0) g/dL Critical Care Time Critical Care Time: Yes Total Critical Care Time: 35 Disposition Clinical Impression: COPD with acute exacerbation, Thrush Disposition: ADMITTED IP TO THIS [facility] Time of Disposition: 15:03
[2021-03-01 13:27] LABS: Basophils # (A) 0.1 k/uL (0-0.2); Basophils % (A) 1 %; Eosinophils # (A) 0.4 k/uL (0-0.7); Eosinophils % (A) 3 %; HCT 41.9 % (34.0-46.0); HGB 14.1 gm/dL (11.4-16.0); Lymphocytes # (A) 1.6 k/uL (1.0-4.8); Lymphocytes % (A) 10 %; MCH 30.8 pg (25.0-35.0); MCHC 33.7 g/dL (31.0-37.0); MCV 91.2 fL (80.0-100.0); Mean Platelet Volume 12.9; Monocytes # (A) 0.8 k/uL (0-1.0); Monocytes % (A) 5 %; Neutrophils # (A) 13.3 k/uL (1.3-7.7); Neutrophils % (A) 82 %; RBC 4.59 m/uL (3.80-5.40); RDW 12.9 % (11.5-15.5); WBC 16.2 k/uL (3.8-10.6)
[2021-03-01 13:40] LABS: ALT 14 U/L (4-34); AST 20 U/L (14-36); African American GFR (CKD) >90 (>60 ml/min/1.73 sqM); Albumin 4.6 g/dL (3.5-5.0); Alkaline Phosphatase 100 U/L (38-126); Anion Gap 8 mmol/L; Blood Urea Nitrogen 13 mg/dL (7-17); Calcium 9.7 mg/dL (8.4-10.2); Carbon Dioxide 32 mmol/L (22-30); Chloride 100 mmol/L (98-107); Glucose 112 mg/dL (74-99); INR 0.9 (<1.2); Non-African American GFR(CKD) >90 (>60 ml/min/1.73 sqM); Partial Thromboplastin Time 26.2 sec (22.0-30.0); Potassium 4.4 mmol/L (3.5-5.1); Prothrombin Time 10.2 sec (9.0-12.0); Sodium 140 mmol/L (137-145); Total Bilirubin 0.6 mg/dL (0.2-1.3); Total Protein 7.8 g/dL (6.3-8.2)
[2021-03-01] MEDS ORDERED: FLUCONAZOLE 150 MG TAB PO STA (16:14)
[2021-03-01] MEDS: IPRATROPIUM-ALBUTEROL 3 ML NEB INHALATION PRN ×2 (17:12→21:57)
[2021-03-01] MEDS: methylPREDNISolone SOD SUCCI 125 MG/2 ML VIAL IV SCH (21:43)
[2021-03-01] MEDS: BENZONATATE 100 MG CAP PO PRN (23:12)
[2021-03-01] MEDS: MELATONIN 5 MG TABLET PO SCH (23:13)
[2021-03-02] MEDS: IPRATROPIUM-ALBUTEROL 3 ML NEB INHALATION PRN ×2 (01:05→04:16)
[2021-03-02] MEDS: methylPREDNISolone SOD SUCCI 125 MG/2 ML VIAL IV SCH ×4 (02:45→20:58)
[2021-03-02 07:26] LABS: Glucose,Whole Blood 147 mg/dL (75-99)
[2021-03-02] MEDS: IPRATROPIUM-ALBUTEROL 3 ML NEB INHALATION SCH ×4 (07:35→19:52)
[2021-03-02] MEDS: INSULIN ASPART (NovoLOG) 100 UNIT/ML VIAL SQ SCH ×4 (07:36→20:46)
[2021-03-02] MEDS ORDERED: BUDESONIDE 0.5 MG/2 ML NEBU INHALATION SCH (08:00)
[2021-03-02] MEDS: BENZONATATE 100 MG CAP PO PRN ×2 (08:49→18:09)
[2021-03-02] MEDS: FLUCONAZOLE 100 MG TAB PO SCH (10:08)
--- NOTE | 2021-03-02 11:02 | CT ---
Reason EXAMINATION TYPE: CT chest wo con DATE OF EXAM: 03/02/2021 COMPARISON: None HISTORY: shortness of breath CT DLP: 996.6 mGycm High-resolution noncontrast CT of the chest was performed with the patient in the prone and supine po sitions. Lung and mediastinal window settings are submitted. The lungs appear to be well-aerated upper lobe emphysematous changes noted. No evidence for fibrosis or bronchiectasis. No evidence for groundglass opacity or infiltrate. No pleural effusion is identifi ed. I do not see evidence for hilar or mediastinal mass or adenopathy. IMPRESSION: Mild emphysematous changes. No evidence for fibrosis.
[2021-03-02 11:31] LABS: Glucose,Whole Blood 160 mg/dL (75-99)
[2021-03-02] MEDS ORDERED: IPRATROPIUM-ALBUTEROL 3 ML NEB INHALATION SCH (12:00)
--- NOTE | 2021-03-02 12:15 | P.CNPUL ---
History of Present Illness Consult date: 03/02/21 Requesting physician: Carolyne Edwards Reason for consult: dyspnea, COPD, hypoxemia Chief complaint: Shortness of breath. History of present illness: Pulmonary consult dated 03/02/2021. 60-year-old female with history of severe stage IV COPD. Her COPD is caused by previous tobacco use, and apparently she has a MZ phenotype alpha-1 antitrypsin deficiency. For that, she gets replacement therapy with Prolastin. She sees one of my partners in the office. She was seen earlier this week and received Depo-Medrol. She typically takes prednisone 10 mg a day on a regular basis. She apparently was diagnosed late last year. Her lung function has steadily declined. She now has stage IV disease, with an FEV1 that she tells me is only 26% of predicted. She denies any chest pain or chest discomfort. She does have a cough which is mostly nonproductive. She denies any fever or chills. She de nies any nausea, vomiting, diarrhea, or abdominal pain. She's on appropriate therapy, with DuoNeb's at home, albuterol inhaler, prednisone 10 mg a day, Spiriva HandiHaler, and Symbicort. It appears that her only major medical problems include the COPD, alpha-1 antitrypsin deficiency, and psoriasis. White count 16.2, he will 14.1, hematocrit 41.9, and platelet count is not reported. PT INR and PTT are all normal. D-dimer 0.22 sodium 140, potassium 4.4, chlorides 100, CO2 32, anion gap 8, BUN 13, creatinine 0.68. Chest x-ray in my opinion shows changes of COPD. Computed tomography scan shows changes of emphysema only. Review of Systems REVIEW OF SYSTEMS: CONSTITUTIONAL: [Negative.] NEUROLOGIC: [ Negative.] HEENT: [ Negative.] CARDIAC: [Negative.] PULMONARY: Shortness of breath on exertion, and even at rest, and dry nonproductive cough. GI: [Negative.] : [Negative.] RHEUMATOLOGIC: [ Negative.] IMMUNOLOGIC: [ Negative.] ENDOCRINE: [Negative. ] DERMATOLOGIC: [Negative.] Past Medical History Past Medical History: COPD Additional Past Medical History / Comment(s): PSORIASIS, alpha-1 antitrypsin deficiency MZ, COVID tracey and tracey vaccine 01/23/21. History of Any Multi-Drug Resistant Organisms: None Reported Past Surgical History: Section Additional Past Surgical History / Comment(s): abcess removed from throat Past Anesthesia/Blood Transfusion Reactions: No Reported Reaction Past Psychological History: No Psychological Hx Reported Smoking Status: Former smoker Past Alcohol Use History: Occasional Additional Past Alcohol Use History / Comment(s): smoked or 40 years between [id number]. Recently quit in May of 2020. Past Drug Use History: None Reported - Past Family History Father Family Medical History: COPD Additional Family Medical History / Comment(s): Her father at age 64 of emphysema. Brother(s) Family Medical History: COPD Additional Family Medical History / Comment(s): Her brother at age 64 of emphysema. He was positive for alpha-1 antitrypsin deficiency, ZZ. Medications and Allergies Home Medications Medication Instructions Recorded Confirmed Type Ipratropium-Albuterol Nebulize 3 ml INHALATION RT-QID PRN 06/18/20 03/01/21 History [Duoneb 0.5 mg-3 mg/3 ml Soln] Budesonide-Formot 160-4.5 Mcg 2 puff INHALATION RT-BID #1 puff 06/20/20 03/01/21 Rx [Symbicort 160-4.5 Mcg Inhaler] Albuterol Sulfate [Albuterol 2 puff PO RT-QID PRN 08/08/20 03/01/21 History Sulfate Hfa] Tiotropium [place] [Spiriva] 1 cap INHALATION DAILY 30 Days #1 08/11/20 03/01/21 Rx device Depo-Medrol 80mg/Ml 80 mg INJ ONCE 03/01/21 03/01/21 History Multivit-Min/FA/Lycopen/Lutein 1 tab PO DAILY 03/01/21 03/01/21 History [Centrum Silver Tablet] guaiFENesin-DM 600/30MG [Mucinex 1 tab PO Q12HR 03/01/21 03/01/21 History Dm] predniSONE 5 mg PO DAILY 03/01/21 03/01/21 History Allergies Allergy/AdvReac Type Severity Reaction Status Date / Time Penicillins Allergy Unknown Verified 03/01/21 13:43 Physical Exam Osteopathic Statement: *. No significant issues noted on an osteopathic structural exam other than those noted in the History and Physical/Consult. Vitals: Vital Signs Temp Pulse Pulse Resp BP BP Pulse Ox 03/02/21 11:56 110 H 03/02/21 07:55 97.9 F 100 16 112/68 90 L 03/02/21 07:54 104 H 03/02/21 07:38 100 03/02/21 04:29 104 H 03/02/21 04:18 104 H 03/02/21 02:00 98.0 F 110 H 18 108/70 92 L 03/02/21 01:14 106 H 03/02/21 01:06 106 H 03/01/21 22:10 121 H 03/01/21 21:58 118 H 03/01/21 20:00 18 03/01/21 19:50 98.5 F 116 H 18 133/75 91 L 03/01/21 17:29 106 H 03/01/21 17:19 104 H 03/01/21 16:55 98.2 F 101 H 18 136/84 94 L 03/01/21 15:28 105 H 18 129/81 94 L 03/01/21 14:17 112 H 03/01/21 13:50 102 H 03/01/21 13:10 104 H 24 140/95 96 Intake and Output 03/01/21 03/02/21 03/02/21 22:59 06:59 14:59 Other: Voiding Method Bedside Commode # Voids 2 Weight 95.708 kg No acute distress, oriented 3. Mild conversational dyspnea, without audible wheezing, or use of accessory muscles. Patient currently on 4 L nasal cannula. Saturations 90%. HEENT examination is grossly unremarkable. Neck supple. Full range of motion. No adenopathy thyromegaly or neck vein distention. Cardiovascular examination reveals regular rhythm rate. S1-S2 normal. No S3 or S4. No discernible murmur noted. Heart rate 106. Lungs reveal severely diminished breath sounds. Scattered expiratory rhonchi and wheezes are noted. No crackles. Breath sounds equal bilaterally. Abdomen soft bowel sounds are heard. No masses or tenderness. Extremities are intact. No cyanosis clubbing or edema. Skin is without rash or lesion. Neurologic examination is brief but nonfocal. Results - Laboratory Findings CBC and BMP: 03/01/21 13:09 03/01/21 13:09 PT/INR, D-dimer PT 10.2 sec (9.0-12.0) 03/01/21 13:09 INR 0.9 (<1.2) 03/01/21 13:09 D-Dimer 0.22 mg/L FEU (<0.60) 03/02/21 09:39 Abnormal lab findings: Abnormal Labs 03/01/21 03/01/21 03/02/21 13:09 13:09 07:24 WBC 16.2 H Neutrophils # 13.3 H Carbon Dioxide 32 H Glucose 112 H POC Glucose (mg/dL) 147 H 03/02/21 11:29 WBC Neutrophils # Carbon Dioxide Glucose POC Glucose (mg/dL) 160 H - Diagnostic Findings Chest x-ray: image reviewed CT scan - chest: image reviewed Assessment and Plan Assessment: Acute hypoxemic respiratory failure secondary to COPD, which has been caused by both previous tobacco use, and MZ phenotype alpha-1 antitrypsin deficiency. History of psoriasis. Prior history of tobacco use. Previous history of section. Plan: Plan dated 03/02/2021. The patient will be started on albuterol sulfate and ipratropium bromide updraft treatments. In addition, the patient will get Pulmicort 1 mg mixed with formoterol 20 g, twice a day. We'll also plan on getting her Solu-Medrol, 60 mg every 6. Additional recommendations and suggestions are forthcoming. Prognosis is guarded. The patient has stage IV disease, with an FEV1 that's a 26% of predicted. Additional recommendations and suggestions are forthcoming. We will continue to follow make recommendations where appropriate. Time with Patient: Greater than 30
--- NOTE | 2021-03-02 12:17 | ECHOF ---
Referral Reason:LVF MEASUREMENTS -------- HEIGHT: 157.5 cm WEIGHT: 95.7 kg BP: RVIDd: 1.9 cm (< 3.3) IVSd: 1.0 cm (0.6 - 1.1) LVIDd: 3.6 cm (3.9 - 5.3) LVPWd: 1.0 cm (0.6 - 1.1) IVSs: 1.7 cm LVIDs: 2.0 cm LVPWs: 1.7 cm Ao Diam: 3.1 cm (2.0 - 3.7) AV Cusp: 1.8 cm (1.5 - 2.6) LA Diam: 2.8 cm (2.7 - 3.8) MV E Fred: 0.55 m/s MV DecT: 111 ms MV A Fred: 0.67 m/s MV E/A Ratio: 0.82 RAP: 5.00 mmHg RVSP: 17.98 mmHg FINDINGS -------- This was a technically difficult study with suboptimal views. The left ventricular size is normal. Left ventricular wall thickness is normal. Overall left vent ricular systolic function is normal with, an EF between 55 - 60 %. The right ventricle is normal in size. The left atrial size is normal. The right atrial size is normal. Lumason used The aortic valve was not well visualized. The mitral valve was not well visualized. There is trace mitral regurgitation. The tricuspid valve was not well visualized. Trace tricuspid regurgitation present. Right ventric ular systolic pressure is normal at < 35 mmHg. There is no pulmonic regurgitation present. The aortic root size is normal. IVC Not well visulized. There is no pericardial effusion. CONCLUSIONS -------- 1. The left ventricular size is normal. 2. Left ventricular wall thickness is normal. 3. Overall left ventricular systolic function is normal with, an EF between 55 - 60 %. 4. There is trace mitral regurgitation. 5. Trace tricuspid regurgitation present. 6. There is no pericardial effusion. BRINE[employer]ARD SUPERVISOR: Kristen Cotter, [facility]
--- NOTE | 2021-03-02 12:34 | P.HPIM ---
History of Present Illness H&P Date: 03/02/21 HISTORY OF PRESENT ILLNESS This is a 60-year-old female patient of Dr. Luiz Mclaughlin and Dr. 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 Patient is receiving Prolastin-C every Saturday by home care nurse. Patient states that her home care nurse noticed on Saturday that she was having more difficulty breathing and had increased edema. Patient has occasional cough is nonproductive. No fever or chills. No nausea, vomiting, diarrhea. Patient is usually on 2 L nasal cannula increased oxygen to 3 L yesterday. She did receive her J&J Covid vaccine on January 23. She gives history that for the past 3 months she has been on prednisone 5 mg daily but last week chose to increased on her own to 10 mg daily. She also states of Spiriva was recently added to her medications. Patient came into [facility] emergency center for evaluation. She was found to be afebrile, heart rate 99, blood pressure 140/72, pulse ox 95% on oxygen. EKG sinus tachycardia at a heart rate of [address] elevation. WBC 16.2, hemoglobin 14.1. CO2 32 otherwise electrolytes and renal function normal. Blood sugar 112. Liver function tests were normal. Troponin negative times one drop. Lactic acid 1.0. ProBNP 126. Magnesium 2.3. Chest x-ray shows mild hazy interstitial densities in the lungs and lower lungs may represent chronic changes. COPD. CT of the chest revealed mild emphysematous changes. No evidence of fibrosis. Echocardiogram reveals EF of 55-60%, trace mitral regurgitation, trace tricuspid regurgitation. Patient has been admitted to the [facility] for consult with pulmonary in place. REVIEW OF SYSTEMS Constitutional: No fever, no chills, no night sweats. No weight change. No weakness, reports fatigue. No daytime sleepiness. EENT: No headache. No blurred vision or double vision, no loss of vision. No loss of Hearing, no ringing in the ears, no dizziness. No nasal drainage or congestion. No epistaxis. No sore throat. Lungs: Reports shortness of breath, Reportscough, denies sputum production. Reports wheezing. Cardiovascular: No chest pain, no lower extremity edema. No palpitations. No paroxysmal nocturnal dyspnea. No orthopnea. No lightheadedness or dizziness. No syncopal episodes. Abdominal: No abdominal pain. No nausea, vomiting. No diarrhea. No constipation. No bloody or tarry stools.. No loss of appetite. Genitourinary: No dysuria, increased frequency, urgency. No urinary retention. Musculoskeletal: No myalgias. No muscle weakness, no gait dysfunction, no frequent falls. Integumentary: No wounds, no lesions. No rash or pruritus. Neurologic: No aphasia. No facial droop. No change in mentation. No head injury. No headache. Psychiatric: No depression. No anxiety. Endocrine: No abnormal blood sugars. SOCIAL HISTORY Patient was a smoker of less than one pack per day for 40 years and quit in May 2019. She denies any alcohol use, marijuana use, illicit drug use. She is and lives at home with her . She has inhalers, nebulizers and oxygen at 2 L nasal cannula at home. She does not have a CPAP. FAMILY HISTORY Father at age 64 from emphysema and his symptoms to be positive for alpha 1 antitrypsin deficiency. Mother at age 88 from C. difficile colitis with history of COPD. Patient has 2 sisters that are alpha-1 antitrypsin seen at and 1 sibling that is S the. Patient has 1 brother that at age 64 and was also Alpha-1 antitrypsin deficiency . One sister at age 63 with history of Down syndrome. Patient's 3 children with no major medical problems. PHYSICAL EXAMINATION Gen: This is a 60-year-old female. Patient is sitting in chair. HEENT: Head is atraumatic, normocephalic. Pupils equal, round. Sclerae is anicteric. NECK: Supple. No JVD. No lymphadenopathy. No thyromegaly. LUNGS: Bilateral end expiratory wheeze, diminished breath sounds throughout. Mild dyspnea with talking. HEART: Regular rate and rhythm. No murmur. ABDOMEN: Soft. Bowel sounds are present. No masses. No tenderness. EXTREMITIES: No pedal edema. No calf tenderness. Dorsalis pedis +2 bilaterally. NEUROLOGICAL: Patient is awake, alert and oriented x3. Cranial nerves 2 through 12 are grossly intact. ASSESSMENT AND PLAN 1. Acute on chronic hypoxic respiratory failure secondary to COPD exacerbation and underlying alpha-1 antitrypsin deficiency. Patient started on Solu-Medrol 60 mg IV every 6 hours, continue DuoNeb treatments scheduled 4 times daily and also as needed, Pulmicort 1 mg twice daily, Tessalon Perles 200 mg 3 times daily as needed, Perforomist twice daily, consult with pulmonary medicine. 2. Alpha-1 antitrypsin deficiency, managed by Dr. Mcmillan and on weekly replacement therapy with ProlastinC. 3. Oral thrush. Patient started on Diflucan 100 mg daily. 4. Seasonal ALLERGIES. 5. Remote history of tobacco use and dependence. Patient quit in 2018. 6. Chronic hypoxic respiratory failure on home O2 at 2 L nasal cannula. 7. GI prophylaxis. Pepcid. 8. DVT prophylaxis. Heparin subcu. Patient will be admitted to the hospital for a minimum of 2 night stay. Discharge plan: home. Impression and plan of care have been directed as dictated by the signing physician. Bee Baig nurse practitioner acting as scribe for signing physician. Past Medical History Past Medical History: COPD Additional Past Medical History / Comment(s): PSORIASIS, alpha-1 antitrypsin deficiency MZ, COVID tracey and tracey vaccine 01/23/21. History of Any Multi-Drug Resistant Organisms: None Reported Past Surgical History: Section Additional Past Surgical History / Comment(s): abcess removed from throat Past Anesthesia/Blood Transfusion Reactions: No Reported Reaction Past Psychological History: No Psychological Hx Reported Smoking Status: Former smoker Past Alcohol Use History: Occasional Additional Past Alcohol Use History / Comment(s): smoked or 40 years between [id number]. Recently quit in May of 2020. Past Drug Use History: None Reported - Past Family History Father Family Medical History: COPD Additional Family Medical History / Comment(s): Her father at age 64 of emphysema. Brother(s) Family Medical History: COPD Additional Family Medical History / Comment(s): Her brother at age 64 of emphysema. He was positive for alpha-1 antitrypsin deficiency, ZZ. Medications and Allergies Home Medications Medication Instructions Recorded Confirmed Type Ipratropium-Albuterol Nebulize 3 ml INHALATION RT-QID PRN 06/18/20 03/01/21 History [Duoneb 0.5 mg-3 mg/3 ml Soln] Budesonide-Formot 160-4.5 Mcg 2 puff INHALATION RT-BID #1 puff 06/20/20 03/01/21 Rx [Symbicort 160-4.5 Mcg Inhaler] Albuterol Sulfate [Albuterol 2 puff PO RT-QID PRN 08/08/20 03/01/21 History Sulfate Hfa] Tiotropium [place] [Spiriva] 1 cap INHALATION DAILY 30 Days #1 08/11/20 03/01/21 Rx device Depo-Medrol 80mg/Ml 80 mg INJ ONCE 03/01/21 03/01/21 History Multivit-Min/FA/Lycopen/Lutein 1 tab PO DAILY 03/01/21 03/01/21 History [Centrum Silver Tablet] guaiFENesin-DM 600/30MG [Mucinex 1 tab PO Q12HR 03/01/21 03/01/21 History Dm] predniSONE 5 mg PO DAILY 03/01/21 03/01/21 History Allergies Allergy/AdvReac Type Severity Reaction Status Date / Time Penicillins Allergy Unknown Verified 03/01/21 13:43 Physical Exam Vitals: Vital Signs Temp Pulse Pulse Resp BP BP Pulse Ox 03/02/21 07:55 97.9 F 100 16 112/68 90 L 03/02/21 07:54 104 H 03/02/21 07:38 100 03/02/21 04:29 104 H 03/02/21 04:18 104 H 03/02/21 02:00 98.0 F 110 H 18 108/70 92 L 03/02/21 01:14 106 H 03/02/21 01:06 106 H 03/01/21 22:10 121 H 03/01/21 21:58 118 H 03/01/21 20:00 18 03/01/21 19:50 98.5 F 116 H 18 133/75 91 L 03/01/21 17:29 106 H 03/01/21 17:19 104 H 03/01/21 16:55 98.2 F 101 H 18 136/84 94 L 03/01/21 15:28 105 H 18 129/81 94 L 03/01/21 14:17 112 H 03/01/21 13:50 102 H 03/01/21 13:10 104 H 24 140/95 96 03/01/21 11:55 97.8 F 99 20 140/72 95 Intake and Output 03/01/21 03/02/21 03/02/21 22:59 06:59 14:59 Other: Voiding Method Bedside Commode # Voids 2 Weight 95.708 kg Results CBC & Chem 7: 03/01/21 13:09 03/01/21 13:09 Labs: Abnormal Lab Results - Last 24 Hours (Table) 03/01/21 03/01/21 03/02/21 Range/Units 13:09 13:09 07:24 WBC 16.2 H (3.8-10.6) k/uL Neutrophils # 13.3 H (1.3-7.7) k/uL Carbon Dioxide 32 H (22-30) mmol/L Glucose 112 H (74-99) mg/dL POC Glucose (mg/dL) 147 H (75-99) mg/dL
[2021-03-02 17:12] LABS: Glucose,Whole Blood 125 mg/dL (75-99)
[2021-03-02] MEDS: BUDESONIDE 1 MG/2 ML NEBU INHALATION SCH (19:52)
[2021-03-02] MEDS: FORMOTEROL FUMARATE 20 MCG/2 ML NEBU INHALATION SCH (19:52)
[2021-03-02 20:24] LABS: Glucose,Whole Blood 136 mg/dL (75-99)
[2021-03-02] MEDS: MELATONIN 5 MG TABLET PO SCH (20:58)
[2021-03-03] MEDS: methylPREDNISolone SOD SUCCI 125 MG/2 ML VIAL IV SCH ×4 (01:44→22:10)
[2021-03-03] MEDS: IPRATROPIUM-ALBUTEROL 3 ML NEB INHALATION PRN (03:55)
[2021-03-03 07:05] LABS: Glucose,Whole Blood 127 mg/dL (75-99)
[2021-03-03] MEDS: BUDESONIDE 1 MG/2 ML NEBU INHALATION SCH ×2 (07:06→19:19)
[2021-03-03] MEDS: FORMOTEROL FUMARATE 20 MCG/2 ML NEBU INHALATION SCH ×2 (07:06→19:19)
[2021-03-03] MEDS: IPRATROPIUM-ALBUTEROL 3 ML NEB INHALATION SCH ×4 (07:06→19:19)
[2021-03-03] MEDS: INSULIN ASPART (NovoLOG) 100 UNIT/ML VIAL SQ SCH ×4 (08:37→22:11)
[2021-03-03] MEDS: FLUCONAZOLE 100 MG TAB PO SCH (08:44)
[2021-03-03] MEDS: FAMOTIDINE 20 MG TAB PO SCH (08:44)
[2021-03-03] MEDS: BENZONATATE 100 MG CAP PO PRN ×2 (08:50→18:14)
[2021-03-03] MEDS ORDERED: FUROSEMIDE 10 MG/ML 4 ML VIAL IV STA (09:49)
[2021-03-03] MEDS: guaiFENesin 600 MG TABLET.ER PO SCH (11:00)
[2021-03-03 11:30] LABS: Glucose,Whole Blood 121 mg/dL (75-99)
--- NOTE | 2021-03-03 12:15 | P.PN ---
Subjective Progress Note Date: 03/03/21 HISTORY OF PRESENT ILLNESS This is a 60-year-old female patient of Dr. Luiz Mclaughlin and Dr. 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 Patient is receiving Prolastin-C every Saturday by home care nurse. Patient states that her home care nurse noticed on Saturday that she was having more difficulty breathing and had increased edema. Patient has occasional cough is nonproductive. No fever or chills. No nausea, vomiting, diarrhea. Patient is usually on 2 L nasal cannula increased oxygen to 3 L yesterday. She did receive her J&J Covid vaccine on January 23. She gives history that for the past 3 months she has been on prednisone 5 mg daily but last week chose to increased on her own to 10 mg daily. She also states of Spiriva was recently added to her medica tions. Patient came into [facility] emergency center for evaluation. She was found to be afebrile, heart rate 99, blood pressure 140/72, pulse ox 95% on oxygen. EKG sinus tachycardia at a heart rate of [address] elevation. WBC 16.2, hemoglobin 14.1. CO2 32 otherwise electrolytes and renal function normal. Blood sugar 112. Liver function tests were normal. Troponin negative times one drop. Lactic acid 1.0. ProBNP 126. Magnesium 2.3. Chest x-ray shows mild hazy interstitial densities in the lungs and lower lungs may represent chronic changes. COPD. CT of the chest revealed mild emphysematous changes. No evidence of fibrosis. Echocardiogram reveals EF of 55-60%, trace mitral regurgitation, trace tricuspid regurgitation. Patient has been admitted to the [facility] for consult with pulmonary in place. 03/03: Patient thinks she feels a little less short of breath today. She co ntinues to have wheezing. She has a cough but she states she is able to get up to the bathroom during the day and only using commode chair at night. She is continued on Solu-Medrol 60 mg IV every 6 hours. Mucinex and 1 dose of IV Lasix added for lower extremity edema. Patient has been seen and followed by pulmonary medicine. REVIEW OF SYSTEMS Constitutional: No fever, no chills, no night sweats. No weight change. No weakness, reports fatigue. No daytime sleepiness. EENT: No headache. No blurred vision or double vision, no loss of vision. No loss of Hearing, no ringing in the ears, no dizziness. No nasal drainage or congestion. No epistaxis. No sore throat. Lungs: Reports shortness of breath, Reports cough, denies sputum production. Reports wheezing. Cardiovascular: No chest pain, no lower extremity edema. No palpitations. No paroxysmal nocturnal dyspnea. No orthopnea. No lightheadedness or dizziness. No syncopal episodes. Abdominal: No abdominal pain. No nausea, vomiting. No diarrhea. No constipation. No bloody or tarry stools.. No loss of appetite. Genitourinary: No dysuria, increased frequency, urgency. No urinary retention. Musculoskeletal: No myalgias. No muscle weakness, no gait dysfunction, no frequent falls. Integumentary: No wounds, no lesions. No rash or pruritus. Neurologic: No aphasia. No facial droop. No change in mentation. No head injury. No headache. Psychiatric: No depression. No anxiety. Endocrine: No abnormal blood sugars. PHYSICAL EXAMINATION Gen: This is a 60-year-old female. Patient is sitting in chair. HEENT: Head is atraumatic, normocephalic. Pupils equal, round. Sclerae is anicteric. NECK: Supple. No JVD. No lymphadenopathy. No thyromegaly. LUNGS: Bilateral end expiratory wheeze, diminished breath sounds throughout. Mild dyspnea with talking. HEART: Regular rate and rhythm. No murmur. ABDOMEN: Soft. Bowel sounds are present. No masses. No tenderness. EXTREMITIES: No pedal edema. No calf tenderness. Dorsalis pedis +2 bilaterally. NEUROLOGICAL: Patient is awake, alert and oriented x3. Cranial nerves 2 through 12 are grossly intact. ASSESSMENT AND PLAN 1. Acute on chronic hypoxic respiratory failure secondary to COPD exacerbation and underlying alpha-1 antitrypsin deficiency. Patient started on Solu-Medrol 60 mg IV every 6 hours, continue DuoNeb treatments scheduled 4 times daily and also as needed, Pulmicort 1 mg twice daily, Tessalon Perles 200 mg 3 times daily as needed, Perforomist twice daily, consult with pulmonary medicine appreciated. 2. Alpha-1 antitrypsin deficiency, managed by Dr. Mcmillan and on weekly replacement therapy with ProlastinC. 3. Oral thrush. Patient started on Diflucan 100 mg daily. 4. Seasonal ALLERGIES. 5. Remote history of tobacco use and dependence. Patient quit in 2019. 6. Chronic hypoxic respiratory failure on home O2 at 2 L nasal cannula. 7. GI prophylaxis. Pepcid. 8. DVT prophylaxis. Heparin subcu. DISCHARGE PLAN Home possibly on Saturday or Saturday. Impression and plan of care have been directed as dictated by the signing physician. Bee Baig nurse practitioner acting as scribe for signing physician. Objective - Vital Signs Vital signs: Vital Signs Temp 97.6 F 03/03/21 08:00 Pulse 97 03/03/21 08:00 Resp 19 03/03/21 08:00 BP 112/68 03/03/21 08:00 Pulse Ox 92 L 03/03/21 08:00 Intake & Output 03/02/21 03/03/21 03/03/21 18:59 06:59 18:59 Other: Voiding Method Bedside Commode Toilet Bedside Commode # Voids 2 # Bowel Movements 1 - Labs CBC & Chem 7: 03/01/21 13:09 03/01/21 13:09 Labs: Abnormal Lab Results - Last 24 Hours (Table) 03/02/21 03/02/21 03/02/21 Range/Units 11:29 17:11 20:23 POC Glucose (mg/dL) 160 H 125 H 136 H (75-99) mg/dL 03/03/21 Range/Units 07:03 POC Glucose (mg/dL) 127 H (75-99) mg/dL
--- NOTE | 2021-03-03 13:34 | P.PN ---
Subjective Progress Note Date: 03/03/21 Principal diagnosis: Acute exacerbation of COPD 60-year-old female with history of severe stage IV COPD. Her COPD is caused by previous tobacco use, and apparently she has a MZ phenotype alpha-1 antitrypsin deficiency. For that, she gets replacement therapy with Prolastin. She sees one of my partners in the office. She was seen earlier this week and received Depo-Medrol. She typically takes prednisone 10 mg a day on a regular basis. She apparently was diagnosed late last year. Her lung function has steadily declined. She now has stage IV disease, with an FEV1 that she tells me is only 26% of predicted. She denies any chest pain or chest discomfort. She does have a cough which is mostly nonproductive. She denies any fever or chills. She denies any nausea, vomiting, diarrhea, or abdominal pain. She's on appropriate therapy, with DuoNeb's at home, albuterol inhaler, prednisone 10 mg a day, Spiriva HandiHaler, and Symbicort. It appears that her only major medical problems include the COPD, alpha-1 antitrypsin deficiency, and psoriasis. White count 16.2, he will 14.1, hematocrit 41.9, and platelet count is not reported. PT INR and PTT are all normal. D-dimer 0.22 sodium 140, potassium 4.4, chlorides 100, CO2 32, anion gap 8, BUN 13, creatinine 0.68. Chest x-ray in my opinion shows changes of COPD. Computed tomography scan shows changes of emph ysema only. The patient is seen today 03/03/2021 in follow-up on the regular medical floor. She is currently sitting up in a chair at the bedside. Awake and alert in no acute distress. Maintaining O2 saturation in the low 90s on 3 L/m per nasal cannula. She's afebrile. Hemodynamically stable. Blood glucose 121. She remains on IV Solu-Medrol, Pulmicort and Perforomist inhalations, DuoNeb in halations. Continue Mucinex, Tessalon Perles. CAT scan reveals no evidence of fibrosis. Mild emphysematous changes. Echocardiogram reveals preserved left ventricular systolic function with ejection fraction 55-60%. Objective - Vital Signs Vital signs: Vital Signs Temp 97.6 F 03/03/21 08:00 Pulse 90 03/03/21 11:26 Resp 19 03/03/21 08:00 BP 112/68 03/03/21 08:00 Pulse Ox 92 L 03/03/21 08:00 Intake & Output 03/02/21 03/03/21 03/03/21 18:59 06:59 18:59 Other: Voiding Method Bedside Commode Toilet Bedside Commode # Voids 2 # Bowel Movements 1 - Exam GENERAL EXAM: Alert, active, pleasant 60-year-old female patient, on 3 L nasal cannula, comfortable in no apparent distress. HEAD: Normocephalic. EYES: Normal reaction of pupils, equal size. NOSE: Clear with pink turbinates. THROAT: No erythema or exudates. NECK: No masses, no JVD. CHEST: No chest wall deformity. LUNGS: Equal air entry with end expiratory wheeze, diminished. CVS: S1 and S2 normal with no audible murmur, regular rhythm. ABDOMEN: No hepatosplenomegaly, normal bowel sounds, no guarding or rigidity. SPINE: No scoliosis or deformity SKIN: No rashes CENTRAL NERVOUS SYSTEM: No focal deficits, tone is normal in all 4 extremities. EXTREMITIES: There is no peripheral edema. No clubbing, no cyanosis. Peripheral pulses are intact. - Labs CBC & Chem 7: 03/01/21 13:09 03/01/21 13:09 Labs: Abnormal Lab Results - Last 24 Hours (Table) 03/02/21 03/02/21 03/03/21 Range/Units 17:11 20:23 07:03 POC Glucose (mg/dL) 125 H 136 H 127 H (75-99) mg/dL 03/03/21 Range/Units 11:29 POC Glucose (mg/dL) 121 H (75-99) mg/dL Assessment and Plan Assessment: 1 Acute hypoxemic respiratory failure secondary to COPD, which has been caused by both previous tobacco use, and MZ phenotype alpha-1 antitrypsin deficiency. 2 Severe stage IV COPD with FEV1 value 26% of predicted 3 Prior history of tobacco use 4 History of psoriasis Plan: The patient was seen and evaluated by Dr. Gaitan The patient is improved today compared to yesterday Continue the current treatment plan Probable discharge in the a.m. We will continue to follow I, the cosigning physician, performed a history & physical examination of the patient. Lungs sounds lateral end expiratory wheeze, diminished. Maintaining good O2 saturations in the 90s on 3 L/m per nasal. I discussed the assessment and plan of care with my nurse practitioner, Emilia Lauren. I attest to the above note as dictated by her.
[2021-03-03 16:28] LABS: Glucose,Whole Blood 119 mg/dL (75-99)
[2021-03-03 21:54] LABS: Glucose,Whole Blood 137 mg/dL (75-99)
[2021-03-03] MEDS: MELATONIN 5 MG TABLET PO SCH (22:11)
[2021-03-04] MEDS: methylPREDNISolone SOD SUCCI 125 MG/2 ML VIAL IV SCH ×4 (01:50→21:46)
[2021-03-04] MEDS: IPRATROPIUM-ALBUTEROL 3 ML NEB INHALATION PRN (04:46)
[2021-03-04 07:25] LABS: Glucose,Whole Blood 118 mg/dL (75-99)
[2021-03-04] MEDS: BUDESONIDE 1 MG/2 ML NEBU INHALATION SCH ×2 (07:37→21:27)
[2021-03-04] MEDS: IPRATROPIUM-ALBUTEROL 3 ML NEB INHALATION SCH ×4 (07:37→21:28)
[2021-03-04] MEDS: FORMOTEROL FUMARATE 20 MCG/2 ML NEBU INHALATION SCH ×2 (07:37→21:27)
[2021-03-04] MEDS: INSULIN ASPART (NovoLOG) 100 UNIT/ML VIAL SQ SCH ×4 (08:35→21:46)
[2021-03-04 10:21] LABS: African American GFR (CKD) 80.5 (60.0-200.0); Albumin 4.3 g/dL (3.80-4.90); Albumin/Globulin Ratio 1.59 (1.60-3.17); Anion Gap 12.3 mmol/L (4.00-12.00); BUN/Creat Ratio 32.22 Ratio (12.00-20.00); Calcium 9.6 mg/dL (8.7-10.3); Carbon Dioxide 29.7 mmol/L (21.6-31.8); Globulin 2.7 g/dL (1.6-3.3); Non-African American GFR(CKD) 69.5 (60.0-200.0); Potassium 4.2 mmol/L (3.5-5.5); Total Bilirubin 0.3 mg/dL (0.3-1.2)
[2021-03-04] MEDS: FAMOTIDINE 20 MG TAB PO SCH (10:22)
[2021-03-04] MEDS: guaiFENesin 600 MG TABLET.ER PO SCH (10:22)
[2021-03-04] MEDS: FLUCONAZOLE 100 MG TAB PO SCH (10:22)
[2021-03-04] MEDS: BENZONATATE 100 MG CAP PO PRN ×2 (10:22→21:46)
--- NOTE | 2021-03-04 10:56 | P.PN ---
Subjective Progress Note Date: 03/04/21 HISTORY OF PRESENT ILLNESS This is a 60-year-old female patient of Dr. Luiz Mclaughlin and Dr. 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 Patient is receiving Prolastin-C every Saturday by home care nurse. Patient states that her home care nurse noticed on Saturday that she was having more difficulty breathing and had increased edema. Patient has occasional cough is nonproductive. No fever or chills. No nausea, vomiting, diarrhea. Patient is usually on 2 L nasal cannula increased oxygen to 3 L yesterday. She did receive her J&J Covid vaccine on January 23. She gives history that for the past 3 months she has been on prednisone 5 mg daily but last week chose to increased on her own to 10 mg daily. She also states of Spiriva was recently added to her medica tions. Patient came into [facility] emergency center for evaluation. She was found to be afebrile, heart rate 99, blood pressure 140/72, pulse ox 95% on oxygen. EKG sinus tachycardia at a heart rate of [address] elevation. WBC 16.2, hemoglobin 14.1. CO2 32 otherwise electrolytes and renal function normal. Blood sugar 112. Liver function tests were normal. Troponin negative times one drop. Lactic acid 1.0. ProBNP 126. Magnesium 2.3. Chest x-ray shows mild hazy interstitial densities in the lungs and lower lungs may represent chronic changes. COPD. CT of the chest revealed mild emphysematous changes. No evidence of fibrosis. Echocardiogram reveals EF of 55-60%, trace mitral regurgitation, trace tricuspid regurgitation. Patient has been admitted to the [facility] for consult with pulmonary in place. 03/03: Patient thinks she feels a little less short of breath today. She co ntinues to have wheezing. She has a cough but she states she is able to get up to the bathroom during the day and only using commode chair at night. She is continued on Solu-Medrol 60 mg IV every 6 hours. Mucinex and 1 dose of IV Lasix added for lower extremity edema. Patient has been seen and followed by pulmonary medicine. 03/04: She states that her shortness of breath is slowly improving. She denies having any fever or chills. She has occasional cough. Patient has been afebrile, heart rate 92, blood pressure 108/76, pulse ox 93% on 2 L nasal cannula. Blood sugars are running between 118 and 137. Repeat lab work reveals electrolytes were unremarkable. BUN 29 creatinine 0.9. Liver function tests are normal. REVIEW OF SYSTEMS Constitutional: No fever, no chills, no night sweats. No weight change. No weakness, reports fatigue. No daytime sleepiness. EENT: No headache. No blurred vision or double vision, no loss of vision. No loss of Hearing, no ringing in the ears, no dizziness. No nasal drainage or congestion. No epistaxis. No sore throat. Lungs: Reports shortness of breath slowly improving, Reports cough, denies sputum production. Reports wheezing. Cardiovascular: No chest pain, no lower extremity edema. No palpitations. No paroxysmal nocturnal dyspnea. No orthopnea. No lightheadedness or dizziness. No syncopal episodes. Abdominal: No abdominal pain. No nausea, vomiting. No diarrhea. No constipation. No bloody or tarry stools.. No loss of appetite. Genitourinary: No dysuria, increased frequency, urgency. No urinary retention. Musculoskeletal: No myalgias. No muscle weakness, no gait dysfunction, no frequent falls. Integumentary: No wounds, no lesions. No rash or pruritus. Neurologic: No aphasia. No facial droop. No change in mentation. No head injury. No headache. Psychiatric: No depression. No anxiety. Endocrine: No abnormal blood sugars. PHYSICAL EXAMINATION Gen: This is a 60-year-old female. Patient is sitting in chair and appears to be comfortable at rest. Patient speaking in full sentences with only very mild dyspnea. HEENT: Head is atraumatic, normocephalic. Pupils equal, round. Sclerae is anicteric. NECK: Supple. No JVD. No lymphadenopathy. No thyromegaly. LUNGS: Bilateral end expiratory wheeze, diminished breath sounds throughout. HEART: Regular rate and rhythm. No murmur. ABDOMEN: Soft. Bowel sounds are present. No masses. No tenderness. EXTREMITIES: No pedal edema. No calf tenderness. Dorsalis pedis +2 bilaterally. NEUROLOGICAL: Patient is awake, alert and oriented x3. Cranial nerves 2 through 12 are grossly intact. ASSESSMENT AND PLAN 1. Acute on chronic hypoxic respiratory failure secondary to COPD exacerbation and underlying alpha-1 antitrypsin deficiency. Continue Solu-Medrol 60 mg IV every 6 hours, continue DuoNeb treatments scheduled 4 times daily and also as needed, Pulmicort 1 mg twice daily, Tessalon Perles 200 mg 3 times daily as needed, Perforomist twice daily, consult with pulmonary medicine appreciated. 2. Alpha-1 antitrypsin deficiency, managed by Dr. Mcmillan and on weekly replacement therapy with ProlastinC. 3. Oral thrush. Patient started on Diflucan 100 mg daily. 4. Seasonal ALLERGIES. 5. Remote history of tobacco use and dependence. Patient quit in 2019. 6. Chronic hypoxic respiratory failure on home O2 at 2 L nasal cannula. 7. GI prophylaxis. Pepcid. 8. DVT prophylaxis. Heparin subcu. DISCHARGE PLAN Home possibly on Saturday or Saturday. Impression and plan of care have been directed as dictated by the signing ph ysician. Bee Baig nurse practitioner acting as scribe for signing physician. Objective - Vital Signs Vital signs: Vital Signs Temp 97.8 F 03/04/21 08:00 Pulse 92 03/04/21 08:07 Resp 18 03/04/21 08:00 BP 108/76 03/04/21 08:00 Pulse Ox 93 L 03/04/21 08:00 Intake & Output 03/03/21 03/04/21 03/04/21 18:59 06:59 18:59 Intake Total 880 Balance 880 Intake: Oral 880 Other: Voiding Method Toilet Toilet Bedside Commode Bedside Commode # Voids 1 - Labs CBC & Chem 7: 03/01/21 13:09 03/04/21 06:21 Labs: Abnormal Lab Results - Last 24 Hours (Table) 03/03/21 03/03/21 03/03/21 Range/Units 11:29 16:26 21:52 POC Glucose (mg/dL) 121 H 119 H 137 H (75-99) mg/dL 03/04/21 Range/Units 07:23 POC Glucose (mg/dL) 118 H (75-99) mg/dL
[2021-03-04 11:00] LABS: HCT 42.5 % (37.2-46.3); HGB 13.5 g/dL (12.0-15.0); MCH 29.9 pg (27.0-32.0); MCHC 31.8 g/dL (32.0-37.0); MCV 94.2 fL (80.0-97.0); RBC 4.51 X 10*6/uL (4.10-5.20); RDW 13.5 % (11.5-14.5); WBC 24.29 X 10*3/uL (4.50-10.00)
[2021-03-04 11:47] LABS: Glucose,Whole Blood 102 mg/dL (75-99)
--- NOTE | 2021-03-04 12:29 | P.PN ---
Subjective Progress Note Date: 03/04/21 Principal diagnosis: Acute exacerbation of COPD 60-year-old female with history of severe stage IV COPD. Her COPD is caused by previous tobacco use, and apparently she has a MZ phenotype alpha-1 antitrypsin deficiency. For that, she gets replacement therapy with Prolastin. She sees one of my partners in the office. She was seen earlier this week and received Depo-Medrol. She typically takes prednisone 10 mg a day on a regular basis. She apparently was diagnosed late last year. Her lung function has steadily declined. She now has stage IV disease, with an FEV1 that she tells me is only 26% of predicted. She denies any chest pain or chest discomfort. She does have a cough which is mostly nonproductive. She denies any fever or chills. She denies any nausea, vomiting, diarrhea, or abdominal pain. She's on appropriate therapy, with DuoNeb's at home, albuterol inhaler, prednisone 10 mg a day, Spiriva HandiHaler, and Symbicort. It appears that her only major medical problems include the COPD, alpha-1 antitrypsin deficiency, and psoriasis. White count 16.2, he will 14.1, hematocrit 41.9, and platelet count is not reported. PT INR and PTT are all normal. D-dimer 0.22 sodium 140, potassium 4.4, chlorides 100, CO2 32, anion gap 8, BUN 13, creatinine 0.68. Chest x-ray in my opinion shows changes of COPD. Computed tomography scan shows changes of emph ysema only. The patient is seen today 03/03/2021 in follow-up on the regular medical floor. She is currently sitting up in a chair at the bedside. Awake and alert in no acute distress. Maintaining O2 saturation in the low 90s on 3 L/m per nasal cannula. She's afebrile. Hemodynamically stable. Blood glucose 121. She remains on IV Solu-Medrol, Pulmicort and Perforomist inhalations, DuoNeb in halations. Continue Mucinex, Tessalon Perles. CAT scan reveals no evidence of fibrosis. Mild emphysematous changes. Echocardiogram reveals preserved left ventricular systolic function with ejection fraction 55-60%. Patient is seen today 03/04/2021 in follow-up on the regular medical floor. She is currently sitting up in a chair at the bedside. Awake and alert in no acute distress. She is a bit better today compared to yesterday. Still not back to her baseline. Still somewhat bronchospastic and wheezy. Maintaining O2 saturation in the low 90s on 2 L/m per nasal cannula. White count 24.2. Hemoglobin 13.5. Sodium 141. Potassium 4.2. BUN 29. Creatinine 0.9. Glucose 137. Maintained on DuoNeb inhalations, Pulmicort and Perforomist inhalations, IV Solu-Medrol. Mucinex and Tessalon Perles for her congested cough. Objective - Vital Signs Vital signs: Vital Signs Temp 97.8 F 03/04/21 08:00 Pulse 100 03/04/21 11:29 Resp 18 03/04/21 08:00 BP 108/76 03/04/21 08:00 Pulse Ox 93 L 03/04/21 08:00 Intake & Output 03/03/21 03/04/21 03/04/21 18:59 06:59 18:59 Intake Total 880 Balance 880 Intake: Oral 880 Other: Voiding Method Toilet Toilet Toilet Bedside Commode Bedside Commode Bedside Commode # Voids 1 - Exam GENERAL EXAM: Alert, active, pleasant 60-year-old female patient, on 2 L nasal cannula, comfortable in no apparent distress. HEAD: Normocephalic. EYES: Normal reaction of pupils, equal size. NOSE: Clear with pink turbinates. THROAT: No erythema or exudates. NECK: No masses, no JVD. CHEST: No chest wall deformity. LUNGS: Equal air entry with end expiratory wheeze, diminished. CVS: S1 and S2 normal with no audible murmur, regular rhythm. ABDOMEN: No hepatosplenomegaly, normal bowel sounds, no guarding or rigidity. SPINE: No scoliosis or deformity SKIN: No rashes CENTRAL NERVOUS SYSTEM: No focal deficits, tone is normal in all 4 extremities. EXTREMITIES: There is no peripheral edema. No clubbing, no cyanosis. Peripheral pulses are intact. - Labs CBC & Chem 7: 03/04/21 06:21 03/04/21 06:21 Labs: Abnormal Lab Results - Last 24 Hours (Table) 03/03/21 03/03/21 03/04/21 Range/Units 16:26 21:52 06:21 WBC 24.29 H (4.50-10.00) X 10*3/uL MCHC 31.8 L (32.0-37.0) g/dL Immature Plt Fraction 12.9 H (1.1-6.1) % Anion Gap (4.00-12.00) mmol/L BUN (9.0-27.0) mg/dL BUN/Creatinine Ratio (12.00-20.00) Ratio Glucose (70-110) mg/dL POC Glucose (mg/dL) 119 H 137 H (75-99) mg/dL Albumin/Globulin Ratio (1.60-3.17) g/dL 03/04/21 03/04/21 03/04/21 Range/Units 06:21 07:23 11:44 WBC (4.50-10.00) X 10*3/uL MCHC (32.0-37.0) g/dL Immature Plt Fraction (1.1-6.1) % Anion Gap 12.30 H (4.00-12.00) mmol/L BUN 29.0 H (9.0-27.0) mg/dL BUN/Creatinine Ratio 32.22 H (12.00-20.00) Ratio Glucose 137 H (70-110) mg/dL POC Glucose (mg/dL) 118 H 102 H (75-99) mg/dL Albumin/Globulin Ratio 1.59 L (1.60-3.17) g/dL Assessment and Plan Assessment: 1 Acute hypoxemic respiratory failure secondary to COPD, which has been caused by both previous tobacco use, and MZ phenotype alpha-1 antitrypsin deficiency. 2 Severe stage IV COPD with FEV1 value 26% of predicted 3 Prior history of tobacco use 4 History of psoriasis Plan: The patient was seen and evaluated by Dr. Gaitan Improved but not back to her baseline Continue the current treatment plan Increase her activity as tolerated Probable discharge in the a.m. We will continue to follow I, the cosigning physician, performed a history & physical examination of the patient. Lungs sounds with bilateral end expiratory wheeze, diminished. Maintaining good O2 saturations in the 90s on 2 L/m per nasal. I discussed the assessment and plan of care with my nurse practitioner, Emilia Lauren. I attest to the above note as dictated by her.
[2021-03-04 16:41] LABS: Glucose,Whole Blood 126 mg/dL (75-99)
[2021-03-04 21:37] LABS: Glucose,Whole Blood 114 mg/dL (75-99)
[2021-03-04] MEDS: MELATONIN 5 MG TABLET PO SCH (21:46)
[2021-03-05] MEDS: methylPREDNISolone SOD SUCCI 125 MG/2 ML VIAL IV SCH ×2 (02:00→07:51)
[2021-03-05] MEDS: IPRATROPIUM-ALBUTEROL 3 ML NEB INHALATION PRN (03:54)
[2021-03-05 07:21] LABS: Glucose,Whole Blood 106 mg/dL (75-99)
[2021-03-05] MEDS: INSULIN ASPART (NovoLOG) 100 UNIT/ML VIAL SQ SCH ×4 (07:46→22:02)
[2021-03-05] MEDS: FAMOTIDINE 20 MG TAB PO SCH ×2 (07:50→22:02)
[2021-03-05] MEDS: guaiFENesin 600 MG TABLET.ER PO SCH (07:50)
[2021-03-05] MEDS: BENZONATATE 100 MG CAP PO PRN ×2 (07:51→21:56)
[2021-03-05] MEDS: FLUCONAZOLE 100 MG TAB PO SCH (07:51)
[2021-03-05] MEDS: FORMOTEROL FUMARATE 20 MCG/2 ML NEBU INHALATION SCH (07:59)
[2021-03-05] MEDS: BUDESONIDE 1 MG/2 ML NEBU INHALATION SCH (08:00)
[2021-03-05] MEDS: IPRATROPIUM-ALBUTEROL 3 ML NEB INHALATION SCH ×4 (08:00→20:58)
[2021-03-05 11:51] LABS: Glucose,Whole Blood 102 mg/dL (75-99)
--- NOTE | 2021-03-05 13:23 | P.PN ---
Subjective Progress Note Date: 03/05/21 HISTORY OF PRESENT ILLNESS This is a 60-year-old female patient of Dr. Luiz Mclaughlin and Dr. 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 Patient is receiving Prolastin-C every Saturday by home care nurse. Patient states that her home care nurse noticed on Saturday that she was having more difficulty breathing and had increased edema. Patient has occasional cough is nonproductive. No fever or chills. No nausea, vomiting, diarrhea. Patient is usually on 2 L nasal cannula increased oxygen to 3 L yesterday. She did receive her J&J Covid vaccine on January 23. She gives history that for the past 3 months she has been on prednisone 5 mg daily but last week chose to increased on her own to 10 mg daily. She also states of Spiriva was recently added to her medica tions. Patient came into [facility] emergency center for evaluation. She was found to be afebrile, heart rate 99, blood pressure 140/72, pulse ox 95% on oxygen. EKG sinus tachycardia at a heart rate of [address] elevation. WBC 16.2, hemoglobin 14.1. CO2 32 otherwise electrolytes and renal function normal. Blood sugar 112. Liver function tests were normal. Troponin negative times one drop. Lactic acid 1.0. ProBNP 126. Magnesium 2.3. Chest x-ray shows mild hazy interstitial densities in the lungs and lower lungs may represent chronic changes. COPD. CT of the chest revealed mild emphysematous changes. No evidence of fibrosis. Echocardiogram reveals EF of 55-60%, trace mitral regurgitation, trace tricuspid regurgitation. Patient has been admitted to the [facility] for consult with pulmonary in place. 03/03: Patient thinks she feels a little less short of breath today. She co ntinues to have wheezing. She has a cough but she states she is able to get up to the bathroom during the day and only using commode chair at night. She is continued on Solu-Medrol 60 mg IV every 6 hours. Mucinex and 1 dose of IV Lasix added for lower extremity edema. Patient has been seen and followed by pulmonary medicine. 03/04: She states that her shortness of breath is slowly improving. She denies having any fever or chills. She has occasional cough. Patient has been afebrile, heart rate 92, blood pressure 108/76, pulse ox 93% on 2 L nasal cannula. Blood sugars are running between 118 and 137. Repeat lab work reveals electrolytes were unremarkable. BUN 29 creatinine 0.9. Liver function tests are normal. 03/05: Patient has been afebrile, heart rate 92, blood pressure 119/75, pulse ox 93% on 5 L nasal cannula. Blood sugars running between 106 and 126. Dyspnea is slowly improving. She has occasional cough. No fever or chills. Patient is currently on IV Solu-Medrol 60 mg every 6 hours which will be transitioned to 40 mg every 8 hours and plan to start prednisone tomorrow morning. Patient is on Pepcid once daily and requesting increased to twice daily which will be done. Anticipate probable discharge home tomorrow. REVIEW OF SYSTEMS Constitutional: No fever, no chills, no night sweats. No weight change. No weakness, reports fatigue. No daytime sleepiness. EENT: No headache. No blurred vision or double vision, no loss of vision. No loss of Hearing, no ringing in the ears, no dizziness. No nasal drainage or congestion. No epistaxis. No sore throat. Lungs: Reports shortness of breath slowly improving, Reports cough, denies sputum production. Reports wheezing. Cardiovascular: No chest pain, no lower extremity edema. No palpitations. No paroxysmal nocturnal dyspnea. No orthopnea. No lightheadedness or dizziness. No syncopal episodes. Abdominal: No abdominal pain. No nausea, vomiting. No diarrhea. No constipation. No bloody or tarry stools.. No loss of appetite. Genitourinary: No dysuria, increased frequency, urgency. No urinary retention. Musculoskeletal: No myalgias. No muscle weakness, no gait dysfunction, no frequent falls. Integumentary: No wounds, no lesions. No rash or pruritus. Neurologic: No aphasia. No facial droop. No change in mentation. No head injury. No headache. Psychiatric: No depression. No anxiety. Endocrine: No abnormal blood sugars. PHYSICAL EXAMINATION Gen: This is a 60-year-old female. Patient is sitting in chair and appears to be comfortable at rest. Patient speaking in full sentences with only very mild dyspnea. HEENT: Head is atraumatic, normocephalic. Pupils equal, round. Sclerae is anicteric. NECK: Supple. No JVD. No lymphadenopathy. No thyromegaly. LUNGS: Bilateral end expiratory wheeze, diminished breath sounds throughout. HEART: Regular rate and rhythm. No murmur. ABDOMEN: Soft. Bowel sounds are present. No masses. No tenderness. EXTREMITIES: No pedal edema. No calf tenderness. Dorsalis pedis +2 bilaterally. NEUROLOGICAL: Patient is awake, alert and oriented x3. Cranial nerves 2 through 12 are grossly intact. ASSESSMENT AND PLAN 1. Acute on chronic hypoxic respiratory failure secondary to COPD exacerbation and underlying alpha-1 antitrypsin deficiency. Continue Solu-Medrol transitioned to 40 mg IV every 8 hours and oral prednisone in the morning, continue DuoNeb treatments scheduled 4 times daily and also as needed, Pulmicort 1 mg twice daily, Tessalon Perles 200 mg 3 times daily as needed, Perforomist twice daily, consult with pulmonary medicine appreciated. 2. Alpha-1 antitrypsin deficiency, managed by Dr. Mcmillan and on weekly replacement therapy with ProlastinC. 3. Oral thrush. Patient started on Diflucan 100 mg daily. 4. Seasonal ALLERGIES. 5. Remote history of tobacco use and dependence. Patient quit in 2019. 6. Chronic hypoxic respiratory failure on home O2 at 2 L nasal cannula. 7. GI prophylaxis. Pepcid. 8. DVT prophylaxis. Heparin subcu. DISCHARGE PLAN Home possibly on Saturday. Impression and plan of care have been directed as dictated by the signing physician. Bee Baig nurse practitioner acting as scribe for signing physician. Objective - Vital Signs Vital signs: Vital Signs Temp 98.6 F 03/05/21 07:34 Pulse 96 03/05/21 08:15 Resp 20 03/05/21 07:34 BP 119/75 03/05/21 07:34 Pulse Ox 93 L 03/05/21 07:34 Intake & Output 03/04/21 03/05/21 03/05/21 18:59 06:59 18:59 Intake Total 540 Output Total 600 Balance -600 540 Intake: Oral 540 Output: Urine 600 Other: Voiding Method Toilet Toilet Bedside Commode Bedside Commode # Voids 2 - Labs CBC & Chem 7: 03/04/21 06:21 03/04/21 06:21 Labs: Abnormal Lab Results - Last 24 Hours (Table) 03/04/21 03/04/21 03/04/21 Range/Units 06:21 06:21 11:44 WBC 24.29 H (4.50-10.00) X 10*3/uL MCHC 31.8 L (32.0-37.0) g/dL Immature Plt Fraction 12.9 H (1.1-6.1) % Anion Gap 12.30 H (4.00-12.00) mmol/L BUN 29.0 H (9.0-27.0) mg/dL BUN/Creatinine Ratio 32.22 H (12.00-20.00) Ratio Glucose 137 H (70-110) mg/dL POC Glucose (mg/dL) 102 H (75-99) mg/dL Albumin/Globulin Ratio 1.59 L (1.60-3.17) g/dL 03/04/21 03/04/21 03/05/21 Range/Units 16:39 21:35 07:17 WBC (4.50-10.00) X 10*3/uL MCHC (32.0-37.0) g/dL Immature Plt Fraction (1.1-6.1) % Anion Gap (4.00-12.00) mmol/L BUN (9.0-27.0) mg/dL BUN/Creatinine Ratio (12.00-20.00) Ratio Glucose (70-110) mg/dL POC Glucose (mg/dL) 126 H 114 H 106 H (75-99) mg/dL Albumin/Globulin Ratio (1.60-3.17) g/dL
--- NOTE | 2021-03-05 13:56 | P.PN ---
Subjective Progress Note Date: 03/05/21 Principal diagnosis: Shortness of breath. Acute exacerbation of COPD 60-year-old female with history of severe stage IV COPD. Her COPD is caused by previous tobacco use, and apparently she has a MZ phenotype alpha-1 antitrypsin deficiency. For that, she gets replacement therapy with Prolastin. She sees one of my partners in the office. She was seen earlier this week and received Depo-Medrol. She typically takes prednisone 10 mg a day on a regular basis. She apparently was diagnosed late last year. Her lung function has steadily declined. She now has stage IV disease, with an FEV1 that she tells me is only 26% of predicted. She denies any chest pain or chest discomfort. She does have a cough which is mostly nonproductive. She denies any fever or chills. She denies any nausea, vomiting, diarrhea, or abdominal pain. She's on appropriate therapy, with DuoNeb's at home, albuterol inhaler, prednisone 10 mg a day, Spiriva HandiHaler, and Symbicort. It appears that her only major medical problems include the COPD, alpha-1 antitrypsin deficiency, and psoriasis. White count 16.2, he will 14.1, hematocrit 41.9, and platelet count is not reported. PT INR and PTT are all normal. D-dimer 0.22 sodium 140, potassium 4.4, chlorides 100, CO2 32, anion gap 8, BUN 13, creatinine 0.68. Chest x-ray in my opinion shows changes of COPD. Computed tomography scan shows changes of emphysema only. The patient is seen today 03/03/2021 in follow-up on the regular medical floor. She is currently sitting up in a chair at the bedside. Awake and alert in no acute distress. Maintaining O2 saturation in the low 90s on 3 L/m per nasal cannula. She's afebrile. Hemodynamically stable. Blood glucose 121. She remains on IV Solu-Medrol, Pulmicort and Perforomist inhalations, DuoNeb inhalations. Continue Mucinex, Tessalon Perles. CAT scan reveals no evidence o f fibrosis. Mild emphysematous changes. Echocardiogram reveals preserved left ventricular systolic function with ejection fraction 55-60%. Patient is seen today 03/04/2021 in follow-up on the regular medical floor. She is currently sitting up in a chair at the bedside. Awake and alert in no acute distress. She is a bit better today compared to yesterday. Still not back to her baseline. Still somewhat bronchospastic and wheezy. Maintaining O2 saturation in the low 90s on 2 L/m per nasal cannula. White count 24.2. Hemoglobin 13.5. Sodium 141. Potassium 4.2. BUN 29. Creatinine 0.9. Glucose 137. Maintained on DuoNeb inhalations, Pulmicort and Perforomist inhalations, IV Solu-Medrol. Mucinex and Tessalon Perles for her congested cough. Progress note dated 03/05/2021. The patient is again seen today in room 462. She sitting at the bedside. Currently, the patient's feeling much improved. She likely be discharged in next 24 hours or so. Her breathing is improved. She still coughing. She's not bringing up any phlegm. She still gets quite wheezy when she gets up exerts herself. She denies any chest pain or chest comfort. No new laboratory data today. No recent chest x-ray to review. Vital signs include a temperature 97.9, heart rate 92, respiratory rate 20, blood pressure 127/73, and a 4 L saturation of 95%. Objective - Vital Signs Vital signs: Vital Signs Temp 97.9 F 03/05/21 13:42 Pulse 97 03/05/21 13:42 Resp 20 03/05/21 13:42 BP 127/73 03/05/21 13:42 Pulse Ox 95 03/05/21 13:42 Intake & Output 03/04/21 03/05/21 03/05/21 18:59 06:59 18:59 Intake Total 540 Output Total 600 Balance -600 540 Intake: Oral 540 Output: Urine 600 Other: Voiding Method Toilet Toilet Toilet Bedside Commode Bedside Commode Bedside Commode # Voids 2 - Exam No acute distress, oriented 3. No conversational dyspnea, or use of accessory muscles, or audible wheezing. HEENT examination is grossly unremarkable. Neck supple. Full range of motion. No adenopathy thyromegaly or neck vein distention. Cardiovascular examination reveals regular rhythm rate. S1-S2 normal. No S3 or S4. No discernible murmur noted. Heart rate 92 bpm. Heart sounds are distant. Lungs reveal diminished bilateral breath sounds. There is mild expiratory wheezes. No rhonchi. Breath sounds equal bilaterally. Breath sounds are improved. Abdomen soft bowel sounds are heard. No masses or tenderness. Extremities are intact. No cyanosis clubbing or edema. Skin is without rash or lesion. Neurologic examination is brief but nonfocal. - Labs CBC & Chem 7: 03/04/21 06:21 03/04/21 06:21 Labs: Abnormal Lab Results - Last 24 Hours (Table) 03/04/21 03/04/21 03/05/21 Range/Units 16:39 21:35 07:17 POC Glucose (mg/dL) 126 H 114 H 106 H (75-99) mg/dL 03/05/21 Range/Units 11:48 POC Glucose (mg/dL) 102 H (75-99) mg/dL Assessment and Plan Assessment: Acute hypoxemic respiratory failure secondary to COPD, which has been caused by both previous tobacco use, and MZ phenotype alpha-1 antitrypsin deficiency. History of psoriasis. Prior history of tobacco use. Previous history of section. Plan: Plan dated 03/02/2021. The patient will be started on albuterol sulfate and ipratropium bromide updraft treatments. In addition, the patient will get Pulmicort 1 mg mixed with formoterol 20 g, twice a day. We'll also plan on getting her Solu-Medrol, 60 mg every 6. Additional recommendations and suggestions are forthcoming. Prognosis is guarded. The patient has stage IV disease, with an FEV1 that's a 26% of predicted. Additional recommendations and suggestions are forthcoming. We will continue to follow make recommendations where appropriate. Plan dated 03/05/2021. The patient's currently on appropriate medications. She'll be started on oral prednisone tomorrow. Today, we DC'd her Pulmicort and her formoterol in favor of Symbicort 160/4.5, 2 puffs twice a day. The patient will likely be discharged in the next 24 hours. She'll follow-up with Dr. Mcmillan post discharge. The patient does have quite severe COPD, with an FEV1 that is 26% of predicted. Time with Patient: Less than 30
[2021-03-05] MEDS ORDERED: methylPREDNISolone SOD SUCCI 40 MG/ML 1 ML VIAL IV SCH (16:00)
[2021-03-05 16:37] LABS: Glucose,Whole Blood 131 mg/dL (75-99)
[2021-03-05] MEDS: SYMBICORT 160-4.5 MCG INHALER INHALATION SCH (21:11)
[2021-03-05 21:24] LABS: Glucose,Whole Blood 112 mg/dL (75-99)
[2021-03-05] MEDS: MELATONIN 5 MG TABLET PO SCH ×2 (21:57→22:01)
[2021-03-06 00:01] VITALS: RESP 18
[2021-03-06] MEDS: IPRATROPIUM-ALBUTEROL 3 ML NEB INHALATION PRN (03:16)
[2021-03-06 06:43] LABS: Glucose,Whole Blood 89 mg/dL (75-99)
[2021-03-06 07:22] VITALS: BP 131/81; TEMP 97.5
[2021-03-06] MEDS: INSULIN ASPART (NovoLOG) 100 UNIT/ML VIAL SQ SCH ×2 (07:28→11:40)
[2021-03-06] MEDS: BENZONATATE 100 MG CAP PO PRN ×2 (07:31→14:11)
[2021-03-06] MEDS: guaiFENesin 600 MG TABLET.ER PO SCH (07:31)
[2021-03-06] MEDS: FAMOTIDINE 20 MG TAB PO SCH (07:31)
[2021-03-06] MEDS: FLUCONAZOLE 100 MG TAB PO SCH (07:31)
[2021-03-06] MEDS: SYMBICORT 160-4.5 MCG INHALER INHALATION SCH (08:25)
[2021-03-06] MEDS: IPRATROPIUM-ALBUTEROL 3 ML NEB INHALATION SCH ×2 (08:25→11:46)
--- NOTE | 2021-03-06 08:52 | P.DS ---
Providers Date of admission: 03/01/21 15:04 Expected date of discharge: 03/06/21 Attending physician: Carolyne Edwards Consults: 03/01/21 15:03 Consult Physician Routine Consulting Provider: Daniel Mcmillan Consult Reason/Comments: COPD exacerbation Do you want consulting provider notified?: Yes Primary care physician: Luiz Mclaughlin [facility] Course: HISTORY OF PRESENT ILLNESS This is a 60-year-old female patient of Dr. Luiz Mclaughlin and Dr. 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 Patient is receiving Prolastin-C every Saturday by home care nurse. Patient states that her home care nurse noticed on Saturday that she was having more difficulty breathing and had increased edema. Patient has occasional cough is nonproductive. No fever or chills. No nausea, vomiting, diarrhea. Patient is usually on 2 L nasal cannula increased oxygen to 3 L yesterday. She did receive her J&J Covid vaccine on January 23. She gives history that for the past 3 months she has been on prednisone 5 mg daily but last week chose to increased on her own to 10 mg daily. She also states of Spiriva was recently added to her medications. Patient came into [facility] emergency center for evaluation. She was found to be afebrile, heart rate 99, blood pressure 140/72, pulse ox 95% on oxygen. EKG sinus tachycardia at a heart rate of [address] elevation. WBC 16.2, hemoglobin 14.1. CO2 32 otherwise electrolytes and renal function normal. Blood sugar 112. Liver function tests were normal. Troponin negative times one drop. Lactic acid 1.0. ProBNP 126. Magnesium 2.3. Chest x-ray shows mild hazy interstitial densities in the lungs and lower lungs may represent chronic changes. COPD. CT of the chest revealed mild emphysematous changes. No evidence of fibrosis. Echocardiogram reveals EF of 55-60%, trace mitral regurgitation, trace tricuspid regurgitation. Patient has been admitted to the [facility] for consult with pulmonary in place. 03/03: Patient thinks she feels a little less short of breath today. She continues to have wheezing. She has a cough but she states she is able to get up to the bathroom during the day and only using commode chair at night. She is continued on Solu-Medrol 60 mg IV every 6 hours. Mucinex and 1 dose of IV Lasix added for lower extremity edema. Patient has been seen and followed by pulmonary medicine. 03/04: She states that her shortness of breath is slowly improving. She denies having any fever or chills. She has occasional cough. Patient has been afebrile, heart rate 92, blood pressure 108/76, pulse ox 93% on 2 L nasal cannula. Blood sugars are running between 118 and 137. Repeat lab work reveals electrolytes were unremarkable. BUN 29 creatinine 0.9. Liver function tests are normal. 03/05: Patient has been afebrile, heart rate 92, blood pressure 119/75, pulse ox 93% on 5 L nasal cannula. Blood sugars running between 106 and 126. Dyspnea is slowly improving. She has occasional cough. No fever or chills. Patient is currently on IV Solu-Medrol 60 mg every 6 hours which will be transitioned to 40 mg every 8 hours and plan to start prednisone tomorrow morning. Patient is on Pepcid once daily and requesting increased to twice daily which will be done. Anticipate probable discharge home tomorrow. 03/06: Patient's breathing status is improving as well as lung sounds are improving. We will transition patient to oral prednisone today and plan for tapering dose at home. She has been afebrile, heart rate 81, blood pressure 131/81, pulse ox 93% on 2 L nasal cannula. Blood sugars running between 89 and 131. Patient will be discharged home today in stable condition. ASSESSMENT AND PLAN 1. Acute on chronic hypoxic respiratory failure secondary to COPD exacerbation and underlying alpha-1 antitrypsin deficiency. 2. Alpha-1 antitrypsin deficiency. 3. Oral thrush. 4. Seasonal ALLERGIES. 5. Remote history of tobacco use and dependence. Patient quit in 2019. 6. Chronic hypoxic respiratory failure on home O2 at 2 L nasal cannula. DISCHARGE PLAN Home Impression and plan of care have been directed as dictated by the signing physician. Bee Baig nurse practitioner acting as scribe for signing physician. Patient Condition at Discharge: Good Plan - Discharge Summary Discharge Rx Participant: Yes New Discharge Prescriptions: New Fluconazole [Diflucan] 100 mg PO DAILY #5 tab Benzonatate [Tessalon Perles] 200 mg PO TID PRN #42 cap PRN Reason: Cough predniSONE 0 mg PO DIRECTED #30 tab Continue Ipratropium-Albuterol Nebulize [Duoneb 0.5 mg-3 mg/3 ml Soln] 3 ml INHALATION RT-QID PRN PRN Reason: Shortness Of Breath Budesonide-Formot 160-4.5 Mcg [Symbicort 160-4.5 Mcg Inhaler] 2 puff INHALATION RT-BID #1 puff Albuterol Sulfate [Albuterol Sulfate Hfa] 2 puff PO RT-QID PRN PRN Reason: Shortness Of Breath Tiotropium [place] [Spiriva] 1 cap INHALATION DAILY 30 Days #1 device Depo-Medrol 80mg/Ml 80 mg INJ ONCE Multivit-Min/FA/Lycopen/Lutein [Centrum Silver Tablet] 1 tab PO DAILY guaiFENesin-DM 600/30MG [Mucinex Dm] 1 tab PO Q12HR predniSONE 5 mg PO DAILY #0 Discharge Medication List Ipratropium-Albuterol Nebulize [Duoneb 0.5 mg-3 mg/3 ml Soln] 3 ml INHALATION RT-QID PRN 06/18/20 [History] Budesonide-Formot 160-4.5 Mcg [Symbicort 160-4.5 Mcg Inhaler] 2 puff INHALATION RT-BID #1 puff 06/20/20 [Rx] Albuterol Sulfate [Albuterol Sulfate Hfa] 2 puff PO RT-QID PRN 08/08/20 [History] Tiotropium [place] [Spiriva] 1 cap INHALATION DAILY 30 Days #1 device 08/11/20 [Rx] Depo-Medrol 80mg/Ml 80 mg INJ ONCE 03/01/21 [History] Multivit-Min/FA/Lycopen/Lutein [Centrum Silver Tablet] 1 tab PO DAILY 03/01/21 [History] guaiFENesin-DM 600/30MG [Mucinex Dm] 1 tab PO Q12HR 03/01/21 [History] Fluconazole [Diflucan] 100 mg PO DAILY #5 tab 03/05/21 [Rx] predniSONE 5 mg PO DAILY #0 03/05/21 [Rx] Benzonatate [Tessalon Perles] 200 mg PO TID PRN #42 cap 03/06/21 [Rx] predniSONE 0 mg PO DIRECTED #30 tab 03/06/21 [Rx] Follow up Appointment(s)/Referral(s): Daniel Mcmillan MD [Family Provider] - 03/29/21 1:30 pm Luiz Mclaughlin MD [Primary Care Provider] - 03/16/21 1:30 pm Patient Instructions/Handouts: COPD (Chronic Obstructive Pulmonary Disease) (DC) Discharge Disposition: HOME WITH HOME HEALTH SERVICES
[2021-03-06] MEDS ORDERED: predniSONE 20 MG TAB PO SCH (09:00)
[2021-03-06 11:36] LABS: Glucose,Whole Blood 104 mg/dL (75-99)
[2021-03-06 11:49] VITALS: PULSE 88
--- NOTE | 2021-03-06 13:19 | P.PN ---
Subjective Progress Note Date: 03/06/21 60-year-old female with history of severe stage IV COPD. Her COPD is caused by previous tobacco use, and apparently she has a MZ phenotype alpha-1 antitrypsin deficiency. For that, she gets replacement therapy with Prolastin. She sees one of my partners in the office. She was seen earlier this week and received Depo-Medrol. She typically takes prednisone 10 mg a day on a regular basis. She apparently was diagnosed late last year. Her lung function has steadily declined. She now has stage IV disease, with an FEV1 that she tells me is only 26% of predicted. She denies any chest pain or chest discomfort. She does have a cough which is mostly nonproductive. She denies any fever or chills. She denies any nausea, vomiting, diarrhea, or abdominal pain. She's on appropriate therapy, with DuoNeb's at home, albuterol inhaler, prednisone 10 mg a day, Spiriva HandiHaler, and Symbicort. It appears that her only major medical problems include the COPD, alpha-1 antitrypsin deficiency, and psoriasis. White count 16.2, he will 14.1, hematocrit 41.9, and platelet count is not reported. PT INR and PTT are all normal. D-dimer 0.22 sodium 140, potassium 4.4, chlorides 100, CO2 32, anion gap 8, BUN 13, creatinine 0.68. Chest x-ray in my opinion shows changes of COPD. Computed tomography scan shows changes of emphysema only. The patient is seen today 03/03/2021 in follow-up on the regular medical floor. She is currently sitting up in a chair at the bedside. Awake and alert in no ac [place] distress. Maintaining O2 saturation in the low 90s on 3 L/m per nasal cannula. She's afebrile. Hemodynamically stable. Blood glucose 121. She remains on IV Solu-Medrol, Pulmicort and Perforomist inhalations, DuoNeb inhalations. Continue Mucinex, Tessalon Perles. CAT scan reveals no evidence of fibrosis. Mild emphysematous changes. Echocardiogram reveals preserved left ventricular systolic function with ejection fraction 55-60%. Patient is seen today 03/04/2021 in follow-up on the regular medical floor. She is currently sitting up in a chair at the bedside. Awake and alert in no acute distress. She is a bit better today compared to yesterday. Still not back to her baseline. Still somewhat bronchospastic and wheezy. Maintaining O2 saturation in the low 90s on 2 L/m per nasal cannula. White count 24.2. Hemoglobin 13.5. Sodium 141. Potassium 4.2. BUN 29. Creatinine 0.9. Glucose 137. Maintained on DuoNeb inhalations, Pulmicort and Perforomist inhalations, IV Solu-Medrol. Mucinex and Tessalon Perles for her congested cough. Progress note dated 03/05/2021. The patient is again seen today in room 462. She sitting at the bedside. Currently, the patient's feeling much improved. She likely be discharged in next 24 hours or so. Her breathing is improved. She still coughing. She's not bringing up any phlegm. She still gets quite wheezy when she gets up exerts herself. She denies any chest pain or chest comfort. No new laboratory data today. No recent chest x-ray to review. Vital signs include a temperature 97.9, heart rate 92, respiratory rate 20, blood pressure 127/73, and a 4 L saturation of 95%. On today's evaluation of or 03/06 2021, clinically the patient is improving. She is less short of breath. The plan is to patient to be discharged home today. The patient is going to be discharged home and the patient is going to be completing a course of Diflucan for oropharyngeal candidiasis, Tessalon Perles for cough, prednisone burst taper, and the patient is demented on a combination of Symbicort and Spiriva as maintenance and DuoNeb nebulized treatments around the clock, the patient is on Prolastin infusions regarding alpha-1 antitrypsin deficiency as replacement therapy. Objective - Vital Signs Vital signs: Vital Signs Temp 97.5 F L 03/06/21 07:22 Pulse 88 03/06/21 11:59 Resp 18 03/06/21 07:30 BP 131/81 03/06/21 07:22 Pulse Ox 96 03/06/21 08:25 Intake & Output 03/05/21 03/06/21 03/06/21 18:59 06:59 18:59 Other: Voiding Method Toilet Toilet Toilet Bedside Commode Bedside Commode Bedside Commode # Voids 4 3 - Exam No acute distress, oriented 3. No conversational dyspnea, or use of accessory muscles, or audible wheezing. HEENT examination is grossly unremarkable. Neck supple. Full range of motion. No adenopathy thyromegaly or neck vein distention. Cardiovascular examination reveals regular rhythm rate. S1-S2 normal. No S3 or S4. No discernible murmur noted. Heart rate 92 bpm. Heart sounds are distant. Lungs reveal diminished bilateral breath sounds. There is mild expiratory wheezes. No rhonchi. Breath sounds equal bilaterally. Breath sounds are i mproved. Abdomen soft bowel sounds are heard. No masses or tenderness. Extremities are intact. No cyanosis clubbing or edema. Skin is without rash or lesion. Neurologic examination is brief but nonfocal. - Labs CBC & Chem 7: 03/04/21 06:21 03/04/21 06:21 Labs: Abnormal Lab Results - Last 24 Hours (Table) 03/05/21 03/05/21 03/06/21 Range/Units 16:34 21:22 11:33 POC Glucose (mg/dL) 131 H 112 H 104 H (75-99) mg/dL Assessment and Plan Plan: 1 Acute hypoxemic respiratory failure secondary to COPD, which has been caused by both previous tobacco use, and MZ phenotype alpha-1 antitrypsin deficiency. Improved 2 History of psoriasis. 3 Prior history of tobacco use. 4 Previous history of section. 5 Oropharyngeal candidiasis Plan: Clinically, the patient is improving. The plan is to discharge this patient home on a combination of Spiriva, Symbicort and DuoNeb nebulized treatments in addition to oxygen. She'll be receiving a course of Diflucan knowing that she has oropharyngeal candidiasis. She is going to complete a prednisone burst taper and go to a maintenance of 5 mg by mouth daily. She is receiving Prolast in infusions on outpatient basis. Follow-up with Dr. Valencia are in the office and she weeks time.
== END 2021-03-06 15:18 | disposition home or self-care (01) | DRG 190 ==
LOC: EC 11:41 → 4SSUR 15:04
PROVIDERS: ADMIT Family Medicine; ATTEND Family Medicine
DX: J43.9 Emphysema, unspecified (principal); J96.21 Acute and chronic respiratory failure with hypoxia; B37.0 Candidal stomatitis; E88.01 Alpha-1-antitrypsin deficiency; Z20.822 Contact with and (suspected) exposure to COVID-19; L40.9 Psoriasis, unspecified; J30.2 Other seasonal allergic rhinitis; Z99.81 Dependence on supplemental oxygen; Z79.51 Long term (current) use of inhaled steroids; Z79.52 Long term (current) use of systemic steroids; Z79.899 Other long term (current) drug therapy; Z98.891 History of uterine scar from previous surgery; Z86.19 Personal history of other infectious and parasitic diseases; Z87.891 Personal history of nicotine dependence; Z98.890 Other specified postprocedural states; Z88.0 Allergy status to penicillin; Z82.5 Family history of asthma and other chronic lower respiratory diseases; Z83.49 Family history of other endocrine, nutritional and metabolic diseases
CPT/HCPCS: 36415; 71046; 71250; 80053; 83605; 83735; 83880; 84484; 85025; 85027; 85379; 85610; 85730; 87635; 93005; 93306; 94640; 94760; 96374; 99291

== ENCOUNTER → 2024-02-10 | Outpatient (CLI) | payer MEDICARE, OTHER ==
--- NOTE | 2024-02-10 14:48 | FL ---
COMPARISON: NONE DATE OF EXAM: 02/10/2024 HISTORY: Dysphagia A number of thin and thick substances were ingested under the care of the department of speech pathol ogy. There is transient penetration. No evidence of aspiration. There is no evidence of obstruction . DAP are not provided. IMPRESSION: 1. Transient penetration with thin barium.
== END | disposition home or self-care (01) ==
LOC: RADFLMAIN 11:21
PROVIDERS: ATTEND Internal Medicine
DX: R13.10 Dysphagia, unspecified (principal)
CPT/HCPCS: 74230

== ENCOUNTER → 2024-06-29 | Outpatient (CLI) | payer MEDICARE, OTHER ==
[2024-06-29 23:18] LABS: Basophils # (A) 0.06 X 10*3/uL (0.00-0.10); Basophils % (A) 0.4 %; Eosinophils # (A) 0.16 X 10*3/uL (0.04-0.35); Eosinophils % (A) 1.1 %; HCT 44.5 % (37.2-46.3); HGB 14.4 g/dL (12.0-15.0); Immature Platelet Fraction 9.9 % (1.1-6.1); Lymphocytes # (A) 1.35 X 10*3/uL (0.90-5.00); Lymphocytes % (A) 9.1 %; MCH 29.3 pg (27.0-32.0); MCHC 32.4 g/dL (32.0-37.0); MCV 90.4 FL (80.0-97.0); Mean Platelet Volume 11.3 FL (9.5-12.2); Monocytes # (A) 0.88 X 10*3/uL (0.20-1.00); Monocytes % (A) 5.9 %; NRBC Per 100 WBC 0 X 10*3/uL (0.00-0.01); Neutrophils # (A) 12.27 X 10*3/uL (1.80-7.70); Neutrophils % (A) 82.8 %; RBC 4.92 X 10*6/uL (4.10-5.20); RDW 14.2 % (11.5-14.5); WBC 14.82 X 10*3/uL (4.50-10.00)
== END | disposition home or self-care (01) ==
LOC: LABWHC1 15:13
PROVIDERS: ATTEND Internal Medicine
DX: M31.19 Other thrombotic microangiopathy (principal)
CPT/HCPCS: 36415; 85025

== ENCOUNTER → 2024-07-08 | Outpatient (CLI) | payer MEDICARE, OTHER ==
[2024-07-09 03:54] LABS: HCT 47.3 % (37.2-46.3); HGB 14.9 g/dL (12.0-15.0); Immature Platelet Fraction 13.8 % (1.1-6.1); MCH 28.7 pg (27.0-32.0); MCHC 31.5 g/dL (32.0-37.0); MCV 91.1 FL (80.0-97.0); Mean Platelet Volume 11.3 FL (9.5-12.2); NRBC Per 100 WBC 0 X 10*3/uL (0.00-0.01); RBC 5.19 X 10*6/uL (4.10-5.20); RBC Morphology Normal (Normal); RDW 14.2 % (11.5-14.5); WBC 15.36 X 10*3/uL (4.50-10.00)
== END | disposition home or self-care (01) ==
LOC: LABWHC1 13:09
PROVIDERS: ATTEND Family Medicine
DX: Z00.00 Encounter for general adult medical examination without abnormal findings
CPT/HCPCS: 36415; 85027

== ENCOUNTER → 2024-07-10 | Outpatient (CLI) | payer MEDICARE, OTHER ==
[2024-07-10 11:37] LABS: HCT 44.3 % (34.0-46.0); HGB 14.1 gm/dL (11.4-16.0); MCH 29.5 pg (25.0-35.0); MCHC 31.9 g/dL (31.0-37.0); MCV 92.3 fL (80.0-100.0); Mean Platelet Volume 10.3; RDW 13.4 % (11.5-15.5); WBC 13.6 k/uL (3.8-10.6)
== END | disposition home or self-care (01) ==
LOC: LABWHC1 11:05
PROVIDERS: ATTEND Family Medicine
DX: D72.829 Elevated white blood cell count, unspecified (principal)
CPT/HCPCS: 36415; 85027